=== PATIENT | female | born 2005 | race Caucasian/White ===

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

== ENCOUNTER 2024-04-09 13:52 | Emergency (ER) | payer OTHER, SELFPAY ==
[2024-04-09 13:52] VITALS: BP 117/54; PULSE 88; RESP 20; TEMP 36.6; O2SAT 100
--- NOTE | 2024-04-09 13:59 | ED_ITS ---
HPI - General Adult General Chief complaint: Unspecified Stated complaint: upper lip burning sensation History of Present Illness HPI narrative: patient left AMA before being seen Related Data Allergies Allergy/AdvReac Type Severity Reaction Status Date / Time No Known Allergies Allergy Verified 06/16/22 17:51 [facility] Past Medical History Medical History Abdominal pain Depression GERD (gastroesophageal reflux disease) Ingrown nail of great toe of right foot Vasovagal syncope Surgical History Surgical History History of appendectomy Family History Family History Mother Abdominal pain Colon polyp Social History Social History Smoking status: Never smoker Alcohol intake: never Substance use type: marijuana Other substance usage details: occasional Course Vital Signs Vital signs: Vital Signs Temperature 36.6 C 04/09/24 13:52 Pulse Rate 88 04/09/24 13:52 Respiratory Rate 04/09/24 13:52 Blood Pressure 117/54 L 04/09/24 13:52 Pulse Oximetry 100 04/09/24 13:52 Oxygen Delivery Room Air 04/09/24 13:52 Temperature 36.6 C 04/09/24 13:52 Pulse Rate 04/09/24 13:52 Respiratory Rate 04/09/24 13:52 Blood Pressure 117/54 L 04/09/24 13:52 Pulse Oximetry 100 04/09/24 13:52 Oxygen Delivery Room Air 04/09/24 13:52 Medical Decision Making Vital Signs Vital Signs: Vital Signs Temperature 36.6 C 04/09/24 13:52 Pulse Rate 88 04/09/24 13:52 Respiratory Rate 04/09/24 13:52 Blood Pressure 117/54 L 04/09/24 13:52 Pulse Oximetry 04/09/24 13:52 Oxygen Delivery Room Air 04/09/24 13:52 Temperature 36.6 C 04/09/24 13:52 Pulse Rate 88 04/09/24 13:52 Respiratory Rate 04/09/24 13:52 Blood Pressure 117/54 L 04/09/24 13:52 Pulse Oximetry 04/09/24 13:52 Oxygen Delivery Room Air 04/09/24 13:52 Discharge Plan Discharge Clinical Impression: Burn of lip Qualifiers: Encounter type: initial encounter Burn degree: unspecified degree Qualified Code(s): T20.02XA - Burn of unspecified degree of lip(s), initial encounter Patient Disposition: Left Against Medical Advice Condition: Stable Instructions: Antibiotic Form Prescriptions: No Action amoxicillin 500 mg tablet 500 mg PO TID Qty: 30 0RF Follow-up/Referrals: Katie,BAO Mcclure [Primary Care Provider] - Time of Disposition: 14:54
== END 2024-04-09 14:50 | disposition left against medical advice (07) ==
PROVIDERS: Emergency Provider Internal Medicine Critical Care Medicine; PCP Physician Assistant
DX: T20.02XA Burn of unspecified degree of lip(s), initial encounter (principal); X58.XXXA Exposure to other specified factors, initial encounter
CPT/HCPCS: 99282

== ENCOUNTER 2024-12-25 18:38 | Emergency (ER) | payer SELFPAY ==
--- OUTSIDE RECORDS SUMMARY | 2024-12-25 18:40 | XMS_ITS | Clinical Summary ---
Author Organization [facility] Address [address] [place] [address] Care Team Providers Care Building Insulation Installer Name Role Phone Gregorio Wilson Primary Care Provider [phone] Allergies No known active allergies Medications No known medications Active Problems No known active problems Surgical History Surgery Date Site/Laterality Comments APPENDECTOMY 07/30/2019 - 07/29/2020 TONSILLECTOMY/ADENOIDECTOMY 07/30/2009 - 07/29/2010 BLEPHAROPTOSIS REPAIR 07/30/2012 - 07/29/2013 Social History Tobacco Use Types Packs/Day Years Used Date Smoking Tobacco: Never Smokeless Tobacco: Never AUDIT-C Answer Date Recorded Q1: How often do you have a drink containing alc ohol? Monthly or less 12/21/2022 Q2: How many drinks containi ng alcohol do you have on a typical day when you are drinking? 1 or 2 12/21/2022 Q3: How often do you have si x or more drinks on one occasion? 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 Gender Identity Not on file Sexual Orientation Not on file Obstetrics History Last Filed Vital Signs Vital Sign Reading Time Taken Comments Blood Pressure - - Pulse - - Temperature - - Respiratory Rate - - Oxygen Saturation - - Inhaled Oxygen Concentration - - Weight 56.7 kg (125 lb) 12/21/2022 1:48 PM CDT Height 157.5 cm (5' 2) 12/21/2022 1:48 PM CDT Body Mass Index 22.86 12/21/2022 1:48 PM CDT Plan of Treatment Health Maintenance Due Date Last Done Comments Depression Screening 2004 Hepatitis C Screening 2004 Regular Well Visit/Exam 18-64 2022 Influenza Vaccine (Season Ended) 2025 06/18/2019, 05/30/2018, 07/04/2017, Additional history exists DTaP/Tdap/Td Vaccine (6 - Td or Tdap) 12/21/2025 12/22/2015, 08/08/2005, 2004, Additional history exists Hepatitis B Screening Completed 05/11/2005 , 2004, 2004, Additional history exists Pneumococcal vaccine <65 Completed 005, 2004, 2004, Additional history exists HPV Vaccines Completed 07/12/2016, 02/27, 01/05/2016 Varicella Vaccines Completed 12/05/2018, 08/08/2005 Meningococcal Vaccine Completed 12/01/2021, 016 Meningococcal B Vaccine Completed 03/09/2022, 12/01 Insurance [facility] [place] [id number] [facility] Care Teams Building Insulation Installer Relationship Specialty Start Date End Date Gregorio Wilson PA [address] [place] [address] PCP - General Family Practice 11/03/22
--- OUTSIDE RECORDS SUMMARY | 2024-12-25 18:40 | XMS_ITS | Referral Summary ---
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 Gender Identity Not on file Sexual Orientation Not on file Last Filed Vital Signs Vital Sign Reading Time Taken Comments Blood Pressure - - Pulse - - Temperature - - Respiratory Rate - - Oxygen Saturation - - Inhaled Oxygen Concentration - - Weight 56.7 kg (125 lb) 12/21/2022 1:48 PM CDT Height 157.5 cm (5' 2) 12/21/2022 1:48 PM CDT Body Mass Index 22.86 12/21/2022 1:48 PM CDT Plan of Treatment Not on file [place] [employer] Care Teams Funeral Assistant Relationship Specialty Start Date End Date Gregorio Wilson PA [address] [place] [address] PCP - General Family Practice 11/03/22
--- OUTSIDE RECORDS SUMMARY | 2024-12-25 18:40 | XMS_ITS | Clinical Summary ---
Author Organization [facility] Address [address] [facility] [place] [address] Care Team Providers Care Supervisor Inspecting Name Role Phone Pippa Cheek MD Primary Care Provider [phone] Source Comments [facility],non-owned Affiliates and Associated Physician Practices is amultiple site organization consisting of ambulatory clinics and hospital sitesin [place], [place], [place] and [place]. This disclosure is being madepursuant to the Care Everywhere program and may not contain all information available regarding this patient. Last updated 18.[facility] Allergies No known active allergies Medications * Be aware that medications may not be up to date on this document. Alwaysverify current medications with the patient. ALBUTEROL IN Inhale 2 Puffs by mouth every 4 hours as needed. 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 Family History Medical History Relation Name Comments Amblyopia Sister Anesthesia Reaction Sister adverse reaction to Versed Cataract Sister Relation Name Status Comments Sister Social History Tobacco Use Types Packs/Day Years Used Date Smoking Tobacco: Passive Smo ke Exposure - Never Smoker Smokeless Tobacco: Never Alcohol Use Standard Drinks/Week Comments No 0 (1 standard drink = 0.6 oz pur e alcohol) Comments No Sex and Gender Information Value Date Recorded Sex Assigned at Not on file 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 Gender Identity Not on file Sexual Orientation Not on file Last Filed Vital Signs Vital Sign Reading Time Taken Comments Blood Pressure 97/58 05/13/2019 1:45 PM CDT Pulse 70 05/13/2019 1:45 PM CDT Temperature 36.6 C (97.8 F) 05/13/2019 12:50 PM CDT Respiratory Rate 16 05/13/2019 1:45 PM CDT Oxygen Saturation 95% 05/13/2019 1:45 PM CDT Inhaled Oxygen Concentration - - Weight 55.5 kg (122 lb 5.7 oz) 05/13/2019 10:22 AM CDT Height 159 cm (5' 2.6) 05/13/2019 10:22 AM CDT Body Mass Index 21.95 05/13/2019 10:22 AM CDT Plan of Treatment Health Maintenance Due Date Last Done Comments HIV SCREENING 2019 HPV VACCINE (1 - 3-dose series) 2019 CHLAMYDIA/GONORRHEA SCREENING 2020 MENINGOCOCCAL (Group B) VACC INE SHARED DECISION-MAKING (1 of 2 - Standard) 2020 HEPATITIS C SCREENING 05/02/2022 DTAP/TDAP/TD VACCINES (1 - Tdap) 2023 HEPATITIS B VACCINE (1 of 3 - 19+ 3-dose series) 2023 COVID-19 VACCINE (1 - 2023-2 5 season) 2024 DEPRESSION SCREENING 07/30/2024 INFLUENZA VACCINE (Season Ended) 2025 ZOSTER VACCINE (1 of 2) 2054 HIB VACCINE Aged Out No longer eligi ble based on patient's age to complete this topic MENINGOCOCCAL GROUPS A/C/Y/W VACCINE Aged Out No longer eligible b ased on patient's age to complete this topic PNEUMOCOCCAL VACCINE Aged Out No long er eligible based on patient's age to complete this topic Insurance [place] - [place] [employer] [place] [employer] [place] MEDICAID [facility] Care Teams Supervisor Inspecting Relationship Specialty Start Date End Date Pippa Cheek MD [address] [place] [id number] PCP - General Pediatrics 04/15/13
--- OUTSIDE RECORDS SUMMARY | 2024-12-25 18:40 | XMS_ITS | Clinical Summary ---
Author Organization [facility] Address [address], [address] [address] Phone Care Team Providers Care Reed Worker Name Role Phone Gregorio Wilson Primary Care Provider [phone] Robbie Mandel MD Unavailable Allergies No known active allergies Medications No known medications Active Problems No known active problems Family History Medical History Relation Name Comments No Known Problems Father Colon Polyps Half-Sister 1 No Known Problems Half-Sister 2 No Known Problems Maternal Grandfather Diabetes Maternal Grandmother No Known Problems Mother No Known Problems Paternal Grandfather No Known Problems Paternal Grandmother No Known Problems Sister Relation Name Status Comments Father Alive Half-Sister 1 Alive Half-Sister 2 Alive Maternal Grandfather Alive Maternal Grandmother Alive Mother Alive Paternal Grandfather Alive Paternal Grandmother Alive Sister Alive Social History Tobacco Use Types Packs/Day Years Used Date Smoking Tobacco: Never Smokeless Tobacco: Never Alcohol Use Standard Drinks/Week Comments Never 0 (1 standard drink = 0.6 oz pur e alcohol) Sexually Active Control Partners Comments Not Currently Male Comments No Sex and Gender Information Value Date Recorded Sex Assigned at Not on file 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 Gender Identity Not on file Sexual Orientation Not on file Last Filed Vital Signs Vital Sign Reading Time Taken Comments Blood Pressure 132/62 10/05/2021 1:32 PM CAT CRACKER OPERATOR Pulse 67 10/05/2021 1:32 PM CAT CRACKER OPERATOR Temperature 35.8 C (96.4 F) 10/05/2021 1:32 PM CAT CRACKER OPERATOR Respiratory Rate - - Oxygen Saturation 98% 10/05/2021 1:32 PM CAT CRACKER OPERATOR Inhaled Oxygen Concentration - - Weight 54.4 kg (120 lb) 10/05/2021 1:32 PM CAT CRACKER OPERATOR Height 157.5 cm (5' 2) 10/05/2021 1:32 PM CAT CRACKER OPERATOR Body Mass Index 21.95 10/05/2021 1:32 PM CAT CRACKER OPERATOR Plan of Treatment Health Maintenance Due Date Last Done Comments Hepatitis C Virus (HCV) Screening 2004 Meningococcal B Immunization (1 of 2 - Standard) 2020 Influenza Immunization (#1) 03/30/202405/31, 05/30/2018, 07/04/2017, Additional history exists SARS-COV-2 Immunization ( - 2023- season) 2024 Respiratory Syncytial Virus (RSV) Immunization (Adult) (1 - 1-dose 75+ series) 2079 Hepatitis B Immunization Completed 005, 2004, 2004, Additional history exists Pneumococcal Immunization Combined Aged Out 05/11/2005, 2004, 2004, Additional history exists No longer eligible based on patient's age to complete this topic DTaP/Tdap/Td Immunization Discontinued 2015, 08/08/2005, 2004, Additional history exists Meningococcal Immunization (ACWY) Aged Out 12/22/2015 No longer eligible based on patient's age to complete this topic TdaP Immunization Completed 12/22/2015 Human Papillomavirus (HPV) Immunization Completed 07/12/2016, 03/08/2016, 01/05/2016 Measles Mumps Rubella (MMR) Immunization Discontinued 12/05/2018, 05/11/2005 Polio (IPV) Immunization Discontinued 019, 2004, 2004, Additional history exists Varicella Immunization Discontinued 12/05/2018, 2005 Rotavirus Immunization Aged Out No lo nger eligible based on patient's age to complete this topic Insurance MEDICAID AETNA [facility] MEDICAID [employer] Care Teams Reed Worker Relationship Specialty Start Date End Date Gregorio Wilson PAC [address] [place] [address] PCP - General Physician Cylinder Die Machine Helper 10/05/21 Robbie Mandel MD [address] [address] Consulting Physician Colon and Rectal Surgery 10/05/21
--- OUTSIDE RECORDS SUMMARY | 2024-12-25 18:40 | XMS_ITS | Data Portability ---
Author Organization [facility] [place] Address [address] [place] [address] Care Team Providers Care Family Resource Management Professor Name Role Phone SAMIR WILSON Primary Care Provider Assessment No assessment recorded. Plan of Treatment Reminders Order Date Submit Date Provider Last Modified By Organization Details Last Modified Time Details Appointments None recorde d. Lab pregnan cy test, urine 2024 025 [facility] In-Office Order, Internal Use Only DO Not Attach Compendium DO Not Attach Compendium, Do Not Delete/merge, [id number] 09:27:15 urinaly sis, dipstic k 2024 025 deldredsuc [facility] In-Office Order, Internal Use Only DO Not Attach Compendium DO Not Attach Compendium, Do Not Delete/merge, [id number] 5 09:27:15 Referral None recorde d. Procedures None recorde d. Surgeries None recorde d. Imaging None recorde d. Medication Orders medroxy progest erone 150 mg/mL intramu scular suspens ion [facility]24 [email or web address] [address] [place], [address], 5 09:27:15 Depo-Pr overa 150 mg/mL intramu scular suspens ion 2024 025 [email or web address] [facility], [address] [place], [address], 5 15:03:33 medroxy progest erone 150 mg/mL intramu scular suspens ion 2023 024 [email or web address] [facility], [address] [place], [address], 14:55:36 medroxy progest erone 150 mg/mL intramu scular suspens ion 2023 024 [email or web address] [facility], [address] [place], [address], 5 14:55:36 Patient TargetsNo targets recorded. Patient Instructions Encounter Date Encounter Id Patient Instructions Last Modified By Organization Details Last Modified Time 08/27/2024 [id number] A healthy lifestyle: care instructions [email or web address] Not available 08/27/2024 15:02:01 Quitting Tobacco: Care Instructions [email or web address] Not available 08/27/2024 15:02:01 Reason for Referral None Reported. Results Created Date Observation Date Name Description Value Unit Range Abnormal Flag Note LastModifiedBy Organization Detail LastModifiedTime 09/22/1909/22/2024 urina lysis , dipst ick Leukocytes Negati ve Not Available In-Office Order Internal Use Only DO Not Attach Compendium DO Not Attach Compendium, Do Not Delete/merge, [id number] 09/22/2024 16:50:48 09/22/19 25 09/22/2024 urina lysis , dipst ick Nitrite negati ve Not Available In-Office Order Internal Use Only DO Not Attach Compendium DO Not Attach Compendium, Do Not Delete/merge, [id number] 09/22/2024 16:50:48 09/22/19 25 09/22/2024 urina lysis , dipst ick Urobilinogen .2 Not Available In-Of fice Order Internal Use Only DO Not Attach Compendium DO Not Attach Compendium, Do Not Delete/merge, [id number] 09/22/2024 16:50:48 09/22/19 25 09/22/2024 urina lysis , dipst ick Protein 30 Not Available In-Office Order Internal Use Only DO Not Attach Compendium DO Not Attach Compendium, Do Not Delete/merge, 09/22/2024 16:50:48 09/22/19 25 09/22/2024 urina lysis , dipst ick pH 7.0 Not Available In-Office Order Internal Use Only DO Not Attach Compendium DO Not Attach Compendium, Do Not Delete/merge, 09/22/2024 16:50:48 09/22/19 25 09/22/2024 urina lysis , dipst ick Blood Large Not Available In-Office Order Internal Use Only DO Not Attach Compendium DO Not Attach Compendium, Do Not Delete/merge, 09/22/2024 16:50:48 09/22/19 25 09/22/2024 urina lysis , dipst ick Specific [place] 1.020 Not Available In-Off ice Order Internal Use Only DO Not Attach Compendium DO Not Attach Compendium, Do Not Delete/merge, 09/22/2024 16:50:48 09/22/19 25 09/22/2024 urina lysis , dipst ick Ketone Negati ve Not Available In-Office Order Internal Use Only DO Not Attach Compendium DO Not Attach Compendium, Do Not Delete/merge, 09/22/2024 16:50:48 09/22/19 25 09/22/2024 urina lysis , dipst ick Bilirubin Negati ve Not Available In-Office Order Internal Use Only DO Not Attach Compendium DO Not Attach Compendium, Do Not Delete/merge, 09/22/2024 16:50:48 09/22/19 25 09/22/2024 urina lysis , dipst ick Glucose Negati ve Not Available In-Office Order Internal Use Only DO Not Attach Compendium DO Not Attach Compendium, Do Not Delete/merge, 09/22/2024 16:50:48 09/22/19 25 09/22/2024 urina lysis , dipst ick Appearance Cloudy Not Available In-Offi ce Order Internal Use Only DO Not Attach Compendium DO Not Attach Compendium, Do Not Delete/merge, 09/22/2024 16:50:48 09/22/19 25 09/22/2024 urina lysis , dipst ick Color Yellow Not Available In-Office Order Internal Use Only DO Not Attach Compendium DO Not Attach Compendium, Do Not Delete/merge, 09/22/2024 16:50:48 09/22/19 25 09/22/2024 pregn no test, urine HCG negati ve Not Available In-Office Order Internal Use Only DO Not Attach Compendium DO Not Attach Compendium, Do Not Delete/merge, 09/22/2024 16:50:18 Result Notes None recorded. Problems No Known Problems Procedures Surgical History Date Name Laterality Status Provider Name and Address Organization Details Recorded Time 12/29/19 22 colonoscopy completed Nidhi Bermeo [facility] 03/09/2022 11:27:48 02/28/20 21 Appendectomy completed Nidhi Bermeo [facility] 03/09/2022 11:27:28 tonsilectomy/jagjit noids completed Teresita Burch [facility] 06/30/2021 14:12:12 Imaging Results None recorded. Procedure Notes None recorded. Medical Equipment None Reported. Allergies No known drug allergies Medications Name Sig Start Date Stop Date Status Note LastModified by Organization Details LastModified Time amoxicillin 500 mg capsule 08/01 completed Not Available Not Available Not Available buspirone 5 mg tablet Take 1 tablet twice a day by oral route for 30 days. 03/09 completed Not Available Not Available Not Available hydrocodone 5 mg-acetamin ophen 325 mg tablet 12/28 completed Not Available Not Available Not Available phenazopyri dine 200 mg tablet 06/30 completed Not Available Not Available Not Available ondansetron HCl 4 mg tablet Take 1 tablet twice a day by oral route as needed for 5 days. 07/28 completed Not Available Not Available Not Available fluoxetine 10 mg tablet 06/30 completed Not Available Not Available Not Available tramadol 50 mg tablet 12/28 completed Not Available Not Available Not Available ketorolac 10 mg tablet 08/01 completed Not Available Not Available Not Available amoxicillin 875 mg tablet Take 1 tablet every 12 hours by oral route for 10 days. 08/27 completed Not Available Not Available Not Available cephalexin 500 mg capsule Take 1 capsule 3 times a day by oral route for 10 days. 12/28 completed Not Available Not Available Not Available nitrofurant oin macrocrysta l 100 mg capsule 06/30 completed Not Available Not Available Not Available omeprazole 20 mg capsule,del ayed release 03/09 completed Not Available Not Available Not Available hydrocortis one 2.5 % topical cream 12/01 completed Not Available Not Available Not Available montelukast 10 mg tablet Take 1 tablet every day by oral route for 90 days. active Not Available Not Available No t Available hydroxyzine HCl 25 mg tablet Take 1 tablet 3 times a day by oral route as needed for 30 days. 01/31 completed Not Available Not Available Not Available ibuprofen 600 mg tablet 03/09 completed Not Available Not Available Not Available albuterol sulfate HFA 90 mcg/actuati on aerosol inhaler Inhale 2 puffs every 4 hours by inhalatio n route as needed. active Not Available Not Available No t Available colestipol 1 gram tablet 06/30 completed Not Available Not Available Not Available medroxyprog esterone 150 mg/mL intramuscul ar suspension Inject 1 mL every 3 months by intramusc ular route. 2024 active Not Available Not Available Not Avai lable metoclopram tawny 10 mg tablet 10/25 completed Not Available Not Available Not Available amoxicillin 875 mg-potassiu m clavulanate 125 mg tablet 06/30 completed Not Available Not Available Not Available azithromyci n 500 mg tablet 06/30 completed Not Available Not Available Not Available medroxyprog esterone 150 mg/mL intramuscul ar syringe 12/01 completed Not Available Not Available Not Available nitrofurant oin monohydrate /macrocryst als 100 mg capsule 12/01 completed Not Available Not Available Not Available Vitals Date Recorded Body height Body mass index (BMI) Body mass index (BMI) Percentile per age and sex Body weight Heart rate Systolic blood pressure Diastolic blood pressure Provider Name and Address Organization Details Last Updated DateTime 5 157.48 cm 27.3 kg/m2 87 % 59420.0 6 g 75 /min 111 mm[Hg] 67 mm[Hg] Connie Kaur [facility] 5 14:55:24 Date Recorded Body height Body mass index (BMI) Body mass index (BMI) Percentile per age and sex Body weight Systolic blood pressure Diastolic blood pressure Provider Name and Address Organization Details Last Updated DateTime 5 157.48 cm 26.5 kg/m2 85 % 83040.8 9 g 99 mm[Hg] 53 mm[Hg] Chloé alves [facility] 5 16:47:59 Date Recorded Body height Body mass index (BMI) Body mass index (BMI) Percentile per age and sex Body weight Respiratory rate Oxygen saturation Oxygen saturation in Arterial blood by Pulse oximetry Heart rate Systolic blood pressure Diastolic blood pressure Provider Name and Address Organization Details Last Updated DateTime 5 157.48 cm 24.1 kg/m2 72 % 47394.4 7 g 16 /min 99 % 99 % 98 /min 104 mm[Hg] 64 mm[Hg] Susana Maria [facility] 5 11:13:59 Date Recorded Body height Body mass index (BMI) Body mass index (BMI) Percentile per age and sex Body weight Systolic blood pressure Diastolic blood pressure Provider Name and Address Organization Details Last Updated DateTime 4 157.48 cm 24.5 kg/m2 76 % 95529.6 6 g 101 mm[Hg] 63 mm[Hg] Kia Bhakta [facility] 4 10:14:20 Date Recorded Body height Body mass index (BMI) Percentile per age and sex Body mass index (BMI) Body weight Systolic blood pressure Diastolic blood pressure Provider Name and Address Organization Details Last Updated DateTime 4 157.48 cm 83 % 26 kg/m2 58771.1 2 g 127 mm[Hg] 66 mm[Hg] JESUS Bragg [facility] 4 11:46:17 Social History Question Answer Notes LastModified by Organizat ion Details LastModified Time Tobacco Smoking Status Current Every Day Smoker Vapes daily, nicottine . Connie christianson [facility] 08/27/2024 14:57:26 Are You Blind Or Do You Have Difficulty Seeing? No Information not available 01/31/2023 What Is Your Level Of Caffeine Consumption? Occasional [email or web address] Information not available 12/01/2021 In The 14 Days Before Symptom Onset, Have You Had Close Contact With A Laboratory-confi rmed COVID-19 While That Case Was Ill? No Information not available 06/30/2021 In The 14 Days Before Symptom Onset, Have You Had Close Contact With A Person Who Is Under Investigation For COVID-19 While That Person Was Ill? No Information not available 06/30/2021 Have You Been To An Area Known To Be High Risk For COVID-19? No Information not available 06/30/2021 Are You Deaf Or Do You Have Serious Difficulty Hearing? No Information not available 01/31/2023 What Type Of Diet Are You Following? REGULAR Information not available 06/30/2021 What Is Your Home Situation? Relatives Sister Information not available 01/31/2023 What Was The Date Of Your Most Recent Tobacco Screening? 12/18/2024 Information not available 12/18/2024 What Is Your Relationship Status? Single Information not available 06/30/2021 Are You Sexually Active? Yes [email or web address] Information not available 12/28/2022 Do You Have Smoke And Carbon Monoxide Detectors In Your Home? Yes Information not available 06/30/2021 Are You Passively Exposed To Smoke? Yes Information not available 06/30/2021 Has Tobacco Cessation Counseling Been Provided? Yes Information not available 06/30/2021 On What Date Was Tobacco Cessation Counseling Provided? 12/18/2024 Information not available 12/18/2024 How Many Years Have You Used E-cigarettes Or Vape? 2 Information not available 06/30/2021 Sex: Female Functional Status Question Answer Note LastModified by Organizat ion Details LastModified Time Do you use any illicit or recreational drugs? No [email or web address] Information not available 07/28/2022 Do you or have you ever used any other forms of tobacco or nicotine? Yes Information not available 06/30/2021 What is your level of alcohol consumption? Occasional Information not available 01/31/2023 Do you or have you ever used smokeless tobacco? Never used smokeless tobacco Information not available 06/30/2021 Are you currently employed? Yes Information not available 06/30/2021 Are you able to care for yourself? 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 Current user of electronic cigarettes Information not available 06/30/2021 What is your exercise level? None Information not available 10/23/2023 Mental Status Question Answer Note LastModified by Organization D etails LastModified Time Do you feel stressed (tense, restless, nervous, or anxious, or unable to sleep at night)? [id number] [email or web address] Information not available 09/21/2022 Family History Relationship Description Onset Age of this Age Resolved Age Notes LastModified by Organization Details LastModified Time Father No current problems or disability [email or web address] Not available 06/30 14:09:54 Mother No current problems or disability [email or web address] Not available 06/30 14:09:54 Medical History Condition Response Coronary Artery Disease N Other N Atrial Fibrillation N High Blood Pressure N Thyroid Problems N Kidney or Bladder Problems N GI Problems N Depression N COPD N Blood Clots N Eating Disorder N Skin Problems N Anemia N Heart Attack (NC) N Anxiety Disorder N Diabetes N Muscle, Joint, or Bone Problems N Seizures/Epilepsy N Acid Reflux (GERD) N Cancer N Stroke N Asthma N Allergies N ADHD N Substance Abuse N High Cholesterol N Hepatitis N Liver Disease N Schizophrenia N Headaches N Heart Failure N Osteoporosis N Gynecological History Statement/Question Response Date of LMP 11/17/2024 On BCP's at Conception? N Menses Monthly No Date of Last Pap Smear Duration of Flow (days) 3 Age at Menarche 11 Current Control Method None LMP Approximate Obstetrics History GPAL:G 1 P 0 0 1 0 Type Value Induced 1 Total 1 Immunizations Vaccine Type Date Status Note Provider Nam e and Address Organization Details Recorded Time DTaP 5 completed Not Available [facility] 06/02/2023 23:50:56 DTaP 5 completed Not Available [facility] 23:50:56 DTaP 6 completed Not Available [facility] 06/02/2023 23:50:56 Hib (PRP-OMP) 4 completed Not Available [facility] 08/03/2023 14:01:56 Hib (PRP-OMP) 5 completed Not Available [facility] 08/03/2023 14:01:56 Hib (PRP-OMP) 5 completed Not Available [facility] 08/03/2023 14:01:56 Hep B, adolescent or pediatric 4 completed Not Available [facility] 06/02/2023 23:50:56 Hep B, adolescent or pediatric 4 completed Not Available [facility] 08/03/2023 14:01:56 Hep B, adolescent or pediatric 5 completed Not Available [facility] 08/03/2023 14:01:56 Hep B, adolescent or pediatric 5 completed Not Available [facility] 08/03/2023 14:01:56 HPV9 6 completed Not Available [facility] 06/02/2023 23:50:55 HPV9 6 completed Not Available [facility] 06/02/2023 23:50:55 HPV9 6 completed Not Available [facility] 06/02/2023 23:50:55 influenza, intradermal, quadrivalent, preservative free 0 completed Not Available [facility] 06/02/2023 23:50:55 influenza, intradermal, quadrivalent, preservative free 6 completed Not Available [facility] 08/03/2023 14:01:56 influenza, intradermal, quadrivalent, preservative free 7 completed Not Available [facility] 08/03/2023 14:01:56 influenza, intradermal, quadrivalent, preservative free 8 completed Not Available [facility] 08/03/2023 14:01:56 influenza, intradermal, quadrivalent, preservative free 9 completed Not Available [facility] 08/03/2023 14:01:56 MMR 5 completed Not Available [facility] 06/02/2023 23:50:55 MMR 9 completed Not Available [facility] 06/02/2023 23:50:55 meningococcal MCV4P 6 completed Not Available [facility] 06/02/2023 23:50:56 pneumococcal conjugate PCV 7 4 completed Not Available [facility] 06/02/2023 23:50:55 pneumococcal conjugate PCV 7 5 completed Not Available [facility] 06/02/2023 23:50:55 pneumococcal conjugate PCV 7 5 completed Not Available [facility] 06/02/2023 23:50:55 pneumococcal conjugate PCV 7 5 completed Not Available [facility] 06/02/2023 23:50:55 IPV 4 completed Not Available [facility] 06/02/2023 23:50:55 IPV 5 completed Not Available [facility] 06/02/2023 23:50:55 IPV 5 completed Not Available [facility] 06/02/2023 23:50:55 IPV 9 completed Not Available [facility] 06/02/2023 23:50:55 Tdap 6 completed Not Available [facility] 06/02/2023 23:50:56 varicella 6 completed Not Available [facility] 06/02/2023 23:50:56 varicella 9 completed Not Available [facility] 06/02/2023 23:50:56 meningococcal B, OMV 2 completed Not Available [facility] 06/02/2023 23:50:55 influenza, split (incl. purified surface antigen) 0 completed Not Available [facility] 08/03/2023 14:01:56 Influenza, split virus, quadrivalent, PF 6 completed Not Available [facility] 06/02/2023 23:50:56 DTaP 4 completed Not Available [facility] 06/02/2023 23:50:56 Hib-Hep B 5 completed Not Available [facility] 06/02/2023 23:50:55 Influenza, split virus, quadrivalent, PF 7 completed Not Available [facility] 06/02/2023 23:50:56 Hib-Hep B 5 completed Not Available [facility] 06/02/2023 23:50:55 Meningococcal MCV4O 2 completed Not Available [facility] 06/02/2023 23:50:56 meningococcal B, OMV 2 completed Not Available [facility] 06/02/2023 23:50:55 Influenza, split virus, quadrivalent, PF 8 completed Not Available [facility] 06/02/2023 23:50:56 Influenza, split virus, quadrivalent, PF 9 completed Not Available [facility] 06/02/2023 23:50:56 Hib-Hep B 4 completed Not Available [facility] 06/02/2023 23:50:55 Past Encounters Encounter ID Performer Location Encounter Start Date Encounter Closed Date Diagnosis/Indication Diagnosis SNOMED-CT Code Diagnosis ICD10 Code Diagnosis Note [id number] Samir Wilson PA-C [facility] [address] [place] [address] 06/30/2021 13:59:05 07/01/2021 07:28:54 Well child visit 354512674 Z00.736 [id number] Samir Wilson PA-C [facility] [address] [place] [address] 07/11/2021 09:58:31 07/13/2021 09:29:30 Dysuria 42333586 R30.9 [id number] Abdias Buckley MD [facility] [address] [place] [address] 09/19/2021 17:16:15 09/19/2021 18:04:11 Dysuria 95332223 R30.0 [id number] Abdias Buckley MD [facility] [address] [place] [address] 12/01/2021 16:34:04 12/01/2021 17:17:34 Active or passive immunization 278363642 Z23 Fatigue 52359138 R53.83 Generalize d anxiety disorder 21832734 F41.1 [id number] Samir Wilson PA-C [facility] [address] [place] [address] 03/09/2022 11:14:20 03/09/2022 12:02:32 Active or passive immunization 722776050 Z23 Bilateral ingrowing nail of toe of feet 0678903591 2384978 L60.0 [id number] Samir Wilson PA-C [facility] [address] [place] [address] 07/04/2022 16:03:11 07/04/2022 17:25:02 Acute upper respiratory infection 28511598 J00 [id number] Samir Wilson PA-C [facility] [address] [place] [address] 07/28/2022 10:19:02 07/28/2022 10:55:11 Fibrocystic change of left breast 0138848025 6522363 N60.12 [id number] Samir Wilson PA-C [facility] [address] [place] [address] 09/21/2022 12:11:51 09/21/2022 13:48:27 Fibrocystic changes of bilateral breasts 0821255291 4412375 N60.12 [id number] MERCEDEZ Cope [address] [facility] [place] [address] 10/05/2022 09:12:25 10/09/2022 10:09:22 Pain of breast 26417203 N64.4 Pt plans on going [facility] Sunday for . Pt to follow up 2 weeks after procedure to check status of breasts. Explained to patient that hormones can cause breast lumpiness and tenderness . [id number] MERCEDEZ Cope [address] [facility] [place] [address] 10/24/2022 16:40:59 10/25/2022 09:26:09 Mastodynia of bilateral breasts 6845030005 1665986 N64.4 Pt educated on fibrocysti c breast changes and how to decrease the appearance of lumps- by limiting caffeine and nicotine. Sbe exam discussed with pt. Ultrasound order given, pt verbalized understand ing. Will follow up pending results. [id number] [facility] [facility] [place] [address] 12/28/2022 12:13:53 01/01/2023 07:19:58 Contraception care management 070658769 Z30.9 1. All forms of control reviewed with patient including risks, benefits, pros and cons. 2. Patient verbalized understand ing of all forms and that abstinence is the only true form of control. 3. Condom use reviewed as well and prevention and transmissi on of STD's. 4. Pt to [facility] helper medication and call [place] office for injection appt. Smoker 98216363 F17.200 smoking cessation informatio n give. pt understand s the risk factors associated with smoking including heart disease, blood clots, stroke and increase risks for cancers. [id number] [facility] [place] [facility] [place] [address] 01/16/2023 16:57:21 01/23/2023 07:28:02 Surveillance of depot contraception done 5090031266 9104 Z30.42 1. All forms of control reviewed with patient including risks, benefits, pros and cons. 2. Patient verbalized understand ing of all forms and that abstinence is the only true form of control. 3. Condom use reviewed as well and prevention and transmissi on of STD's. 4. Depo injection given 5. Will return q 3 months for injections , sooner if needed. 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 All forms of control reviewed with patient including risks, benefits, pros and cons. 2. Patient verbalized understand ing of all forms and that abstinence is the only true form of control. 3. Condom use reviewed as well and prevention and transmissi on of STD's. 4. Serum hcg done today 5. If serum hcg is negative, pt will return in next 48 hours with injection to start series. Pt will then return q 3 months for injections , sooner if needed. [id number] MERCEDEZ Cope [address] [place] [address] 08/03/2023 14:00:14 08/06/2023 08:10:44 Initiation of depot contraception done 0881270023 23437 Z30.013 Smoker 18520881 F17.200 smoking cessation informatio n give. pt understand s the risk factors associated with smoking including heart disease, blood clots, stroke and increase risks for cancers. [id number] TANISHA Dow [address] [place] [address] 10/23/2023 10:42:50 10/26/2023 00:32:24 Seasonal allergic rhinitis [id number] J30.2 Exercise i nduced bronchospasm [id number] J45.990 Body mass index 20-24 - normal [id number] Z68.24 [id number] MERCEDEZ Cope [address] [place] [address] 10/26/2023 09:52:21 10/29/2023 08:09:15 Surveillance of depot contraception done [id number] Z30.42 1. All forms of control reviewed with patient including risks, benefits, pros and cons. 2. Patient verbalized understand ing of all forms and that abstinence is the only true form of control. 3. Condom use reviewed as well and prevention and transmissi on of STD's. 4. Depo injection given 5. Will return q 3 months for injections , sooner if needed. [id number] Abdias Buckley MD [facility] [address] [place] [place] [address] 01/10/2024 15:18:16 01/12/2024 09:29:31 Paronychia of finger of right hand [id number] L03.011 Body mass index 20-24 - normal [id number] Z68.24 [id number] MD Eddy Hilario [address] [place] [address] 01/15/2024 10:02:07 01/18/2024 07:44:53 Surveillance of depot contraception done [id number] 91 Z30.42 1. All forms of control reviewed with patient including risks, benefits, pros and cons. 2. Patient verbalized understand ing of all forms and that abstinence is the only true form of control. 3. Condom use reviewed as well and prevention and transmissi on of STD's. 4. Depo injection given 5. Will return q 3 months for injections , sooner if needed. [id number] MD Eddy Hilario [address] [place] [address] 04/09/2024 11:26:43 04/14/2024 08:43:37 Surveillance of depot contraception done [id number] 9104 Z30.42 1. All forms of control reviewed with patient including risks, benefits, pros and cons. 2. Patient verbalized understand ing of all forms and that abstinence is the only true form of control. 3. Condom use reviewed as well and prevention and transmissi on of STD's. 4. Serum hcg done today 5. If serum hcg is negative, pt will return in next 48 hours with injection to start series. Pt will then return q 3 months for injections , sooner if needed. [id number] MD Eddy Hilario [address] [place] [address] Dr Verduzco [address] [place] [address] 08/27/2024 14:48:59 08/28/2024 10:22:26 Contraception care management [id number] Z30.9 1. All forms of control reviewed with patient including risks, benefits, pros and cons. 2. Patient verbalized understand ing of all forms and that abstinence is the only true form of control. 3. Condom use reviewed as well and prevention and transmissi on of STD's. 4. pt on cycle, will return within 48 hours. Smoker [id number] F17.200 smoking cessation informatio n give. pt understand s the risk factors associated with smoking including heart disease, blood clots, stroke and increase risks for cancers. Overweight [id number] E66 .3 [id number] MD Eddy Hilario [address] [place] [address] Dr Verduzco [address] [place] [address] 09/22/2024 16:09:40 09/23/2024 12:35:58 Contraception care management [id number] Z30.9 1. All forms of control reviewed with patient including risks, benefits, pros and cons. 2. Patient verbalized understand ing of all forms and that abstinence is the only true form of control. 3. Condom use reviewed as well and prevention and transmissi on of STD's. 4. pt on cycle, will return within 48 hours. [id number] Abdias Buckley MD [facility] [address] [facility] [place] [address] 12/18/2024 11:03:21 12/19/2024 08:18:25 Viral gastroenteritis caused by Palmer-like agent [id number] A08.11 resolved Body mass index 20-24 - normal [id number] Z68.24 Health Concerns Section Related Observation LastModified by Organization Detai ls LastModified Time None Recorded Concern Status LastModified by Organization Details LastModified Time None Recorded Advance Directives Directive None Recorded Payers Encounter Date Sequence Insurance Name Policy Number Policy Gibson Covered Member ID Gibson Member ID Guarantor Name 01/15/2024 1 [employer] [place] 2020 (MEDICAID REPLACEMENT - HMO) Orlando Dequasie [id number] Kaila Dequasie 04/09/2024 1 [employer] [place]AC[place] - [place]MO) Orlando Dequasie [id number] Kaila Dequasie 08/27/2024 1 [employer] - [place]MO) Orlando Dequasie [id number] Kaila Dequasie 09/22/2024 1 [employer] - [place]) Orlando Dequasie [id number] Kaila Dequasie Notes Date Note Type Note Provider Name and Address Organization Details Recorded Time 01/15/2024 text/html Annual GYNReport ed bypatient.History:n o gynecologic complaints Menstrual cycle:Irregular cycle intervals Urinary symptoms:No hematuria; No incontinence Vulva:No genital lesion Vagina:Normal vaginal discharge Breast:No breast pain; No breast lump; No nipple discharge Current Contraception:Satis fied with current contraception; Intramuscular contraceptive injection Sexual complaints:No sexual complaints; No pain during intercourse; Normal libido Menopausal Symptoms:No menopausal symptoms; Normal vaginal lubrication Psychological symptoms:No depression; No anxiety; No PMDD Preventive measures:Encourage self breast examination; Encourage regular exercise; Encourage no tobacco use; Encourage regular mammograms starting age [age] yo fe here for jaime Paez CAFETERIA MANAGER-BC Attn: [address]ing[address] [place], [address], [facility] 01/15/2024 10:32:45 04/09/2024 text/html Annual GYNReport ed bypatient.History:n o gynecologic complaints Menstrual cycle:Irregular cycle intervals Urinary symptoms:No hematuria; No incontinence Vulva:No genital lesion Vagina:Normal vaginal discharge Breast:No breast pain; No breast lump; No nipple discharge Current Contraception:Satis fied with current contraception; Intramuscular contraceptive injection Sexual complaints:No sexual complaints; No pain during intercourse; Normal libido Menopausal Symptoms:No menopausal symptoms; Normal vaginal lubrication Psychological symptoms:No depression; No anxiety; No PMDD Preventive measures:Encourage self breast examination; Encourage regular exercise; Encourage no tobacco use; Encourage regular mammograms starting age [age] yo fe here for depo MERCEDEZ Cope Attn: Accounting[address] [facility], [place], [address], [place] [facility] 04/09/2024 12:13:46 08/27/2024 text/html Annual GYNReport ed bypatient.History:n o gynecologic complaints Menstrual cycle:Irregular cycle intervals Urinary symptoms:No hematuria; No incontinence Vulva:No genital lesion Vagina:Normal vaginal discharge Breast:No breast pain; No breast lump; No nipple discharge Current Contraception:Satis fied with current contraception; Intramuscular contraceptive injection Sexual complaints:No sexual complaints; No pain during intercourse; Normal libido Menopausal Symptoms:No menopausal symptoms; Normal vaginal lubrication Psychological symptoms:No depression; No anxiety; No PMDD Preventive measures:Encourage self breast examination; Encourage regular exercise; Encourage no tobacco use; Encourage regular mammograms starting age [age] yo fe here for control discussion, would like to restart depo- last depo 04/09/24 MERCEDEZ Cope Attn: Accounting[address] [facility], [place], [address], [facility] 08/27/2024 15:02:32 12/18/2024 text/html had diarrhea and stomach upset for 3 days..feeling better now... Samir [place] PA-C Attn: [address] [place], [address], [place] [facility] 12/18/2024 11:32:02 OBGyn Episode No OBEpisode recorded.
[2024-12-25 18:47] VITALS: BP 113/62; PULSE 80; RESP 16; TEMP 36.2; O2SAT 100
--- NOTE | 2024-12-25 19:05 | ED.GENADULT ---
HPI - General Adult General Chief complaint: Unspecified Stated complaint: hemorrhoids Time Seen by Provider: 12/25/24 19:05 Source: patient Mode of arrival: ambulatory Limitations: no limitations History of Present Illness HPI narrative: 19-year-old female history of hemorrhoids presented for complaint of rectal pain and hemorrhoids. Onset yesterday. pain is worse while at work where she does a lot of heavy lifting. patient has been using ice and malg-giu-zfcqaim hemorrhoid cream. denies bleeding. LBM today. Related Data Allergies Allergy/AdvReac Type Severity Reaction Status Date / Time No Known Allergies Allergy Verified 12/25/24 18:50 Review of Systems Review of Systems: per HPI. All systems reviewed & are unremarkable except as noted in HPI and below PMFSH Past Medical History Medical History Abdominal pain Depression GERD (gastroesophageal reflux disease) Ingrown nail of great toe of right foot Vasovagal syncope Surgical History Surgical History History of appendectomy Family History Family History Mother Abdominal pain Colon polyp Social History Social History Smoking status: Never smoker Alcohol intake: never Substance use type: marijuana Other substance usage details: occasional Comments At time of signature, I have reviewed and agree with nursing past medical, surgical, social and family history unless otherwise noted. Please see nursing chart for further information. There is no relevant family history pertinent to the presenting complaint Exam Narrative: GENERAL: Well-appearing ENT: Mucous membranes pink and moist. CHEST: No respiratory distress. Clear to auscultation. HEART: Regular rate and rhythm. No murmur appreciated. Normal peripheral pulses. ABDOMEN: Soft, nontender, nondistended, normal active bowel sounds. Rectal exam with external hemorrhoids noted x2, one tender c/w mildly thrombosed posteriorly, no discoloration noted, no bleeding. SKIN: Warm, dry, no rash. Capillary refill normal. Normal skin turgor. NEURO: No focal deficits. Alert and oriented x3. Gait steady. PSYCH: Normal affect. No signs of depression or anxiety. Course Course Emergency Course: Patient is aware of diagnosis, understands and agrees to treatment plan. Anticipatory guidance given. Patient agrees to follow-up as directed and is aware of reasons to seek care at the emergency department. Portions of this record may have been created with voice recognition software Level of Care: Express Care Visit Vital Signs Vital signs: Vital Signs Temperature 97.2 F L 12/25/24 18:47 Pulse Rate 80 12/25/24 18:47 Respiratory Rate 16 12/25/24 18:47 Blood Pressure 113/62 12/25/24 18:47 Pulse Oximetry 100 12/25/24 18:47 Oxygen Delivery Room Air 12/25/24 18:47 Temperature 97.2 F L 12/25/24 18:47 Pulse Rate 80 12/25/24 18:47 Respiratory Rate 16 12/25/24 18:47 Blood Pressure 113/62 12/25/24 18:47 Pulse Oximetry 100 12/25/24 18:47 Oxygen Delivery Room Air 12/25/24 18:47 Medical Decision Making MDM Narrative Medical decision making narrative: Discussed physical exam findings c/w external hemorrhoid. We discussed worsening hemorrhoids and the need for ER visit if thrombosed. Rx anusoll and lidocaine. Advised supportive measures and signs/symptoms to go to the ER. Pt is appropriate for outpt treatment and f/u. Differential Diagnosis Differential Diagnosis: hemorrhoid, rectal fissure, colitis, HSV Vital Signs Vital Signs: Vital Signs Temperature 97.2 F L 12/25/24 18:47 Pulse Rate 80 12/25/24 18:47 Respiratory Rate 16 12/25/24 18:47 Blood Pressure 113/62 12/25/24 18:47 Pulse Oximetry 100 12/25/24 18:47 Oxygen Delivery Room Air 12/25/24 18:47 Temperature 97.2 F L 12/25/24 18:47 Pulse Rate 80 12/25/24 18:47 Respiratory Rate 16 12/25/24 18:47 Blood Pressure 113/62 12/25/24 18:47 Pulse Oximetry 100 12/25/24 18:47 Oxygen Delivery Room Air 12/25/24 18:47 reviewed Discharge Plan Discharge Clinical Impression: Hemorrhoid Patient Disposition: Home Condition: Stable Instructions: Antibiotic Form, Hemorrhoids (ED), Thrombosed Hemorrhoid (ED) Additional Instructions: Warm baths/soaks with epson salts (sitz bath) three times daily and/or after bowel movement can provide comfort. No heavy lifting, pushing, pulling etc Take stool softeners to avoid straining with bowel movement. (Colace) Continue witch nitesh or Tucks pads Rest on your side or abdomen; avoid sitting directly in the center. Tylenol as needed Increase fiber and water in diet Use the Anusol suppository, you can get it over the counter Lidocaine cream as directed Follow up with your primary car provider in 3 days or sooner if you have worsening symptoms. Go to the ER if you have any worsening symptoms or concerns Patient Language: Eritrean Prescriptions: New hydrocortisone acetate [Anusol-HC] 25 mg suppository 25 mg RECTAL TID 4 Days Qty: 12 0RF lidocaine HCl 3 % cream 1 applic topical TID PRN (Reason: pain) Qty: 28.3 0RF Follow-up/Referrals: Katie,BAO Mcclure [Primary Care Provider] -
== END 2024-12-25 19:30 | disposition home or self-care (01) ==
PROVIDERS: Emergency Provider Nurse Practitioner Family; PCP Physician Assistant
DX: K64.9 Unspecified hemorrhoids (principal); F12.90 Cannabis use, unspecified, uncomplicated; K21.9 Gastro-esophageal reflux disease without esophagitis
CPT/HCPCS: 99213; G0463

== ENCOUNTER 2025-01-22 04:26 | Emergency (ER) | payer SELFPAY ==
[2025-01-22 04:27] VITALS: BP 123/96; PULSE 86; RESP 18; TEMP 36.9; O2SAT 99
--- NOTE | 2025-01-22 04:35 | ED_ITS ---
HPI - Nausea/Vomiting/Diarrhea General Chief complaint: Nausea/Vomiting/Diarrhea Stated complaint: n/v/d Time Seen by Provider: 01/22/25 04:35 Source: patient and family Mode of arrival: ambulatory Limitations: no limitations History of Present Illness HPI Narrative: patient is a 19-year-old female with nausea vomiting and diarrhea starting today. She is getting hot and cold flashes. 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 She started to have nausea vomiting and diarrhea after lunch. She had a hot pocket and chips. MD elicited complaint: nausea, vomiting and diarrhea Pertinent past history: other ( None) Onset (ago): hour(s) ( 3) Description of vomiting: food contents Description of diarrhea: watery Associated nausea: Yes Associated abdominal pain: Yes Location of pain: diffuse Radiation: diffuse Pain consistency: intermittent Severity: mild Pain scale (0-10): 1 Quality: cramping Exacerbating factors: none Relieving factors: none Context: other ( patient was at work in the heat and ate lunch and started to have nausea vomiting and diarrhea) Associated symptoms: nausea/vomiting Treatment prior to arrival: other ( none) Related Data Allergies Allergy/AdvReac Type Severity Reaction Status Date / Time No Known Allergies Allergy Verified 01/22/25 04:33 Review of Systems 2 Review of Systems: All systems reviewed & are unremarkable except as noted in HPI and below Constitutional: Constitutional: Reports no additional constitutional complaints Eyes: Eyes: Reports no additional eye complaints ENT: Reports system reviewed and no additional complaints, except as documented Cardiovascular: Cardiovascular: Reports no additional cardiovascular complaints Respiratory: Respiratory: Reports no additional respiratory complaints Gastrointestinal: Gastrointestinal: Reports no additional gastrointestinal complaints Genitourinary: Genitourinary: Reports no additional female genitourinary complaints Musculoskeletal: Musculoskeletal: Reports no additional musculoskeletal complaints Integumentary/Breasts: Skin/Breast: Reports system reviewed and no additional complaints, except as docu Neurologic: Reports system reviewed and no additional complaints, except as documented Psychiatric: Psychiatric: Reports no additional psychiatric complaints Endocrine: Endocrine: Reports no additional endocrine complaints Hematologic/Lymphatic: Hematologic/Lymphatic: Reports no additional hematologic/lymphatic complaints Allergic/Immunologic: Allergic/Immunologic: Reports no additional allergic/immunologic complaints PMFSH Past Medical History Medical History Vasovagal syncope Ingrown nail of great toe of right foot GERD (gastroesophageal reflux disease) Depression Abdominal pain Surgical History Surgical History History of appendectomy Family History Family History Mother Abdominal pain Colon polyp Social History Social History Smoking status: Never smoker Alcohol intake: never Substance use type: marijuana Other substance usage details: occasional Exam 2 Const: General: healthy appearing Nutritional Appearance: well nourished Orientation/consciousness: patient oriented x3 HENMT: Head: normal to inspection Ears: external ears normal F rogelio/Nose/Sinus: Normal external nose present Eyes: Conjunctivae: conjunctivae normal Cornea: corneas normal Pupils: E qual, round and reactive pupils present Neck: Neck: normal visual inspection Chest: Chest palpation & inspection: normal inspection of the chest Resp: Effort & Inspection: normal respiratory effort and not labored A uscultation: clear to auscultation bilaterally and no crackles Cardio: Rate: regular rate Rhythm: regular rhythm Heart sounds: no murmurs GI: Inspection: non-distended GI Palp: Yes Soft to palpation and No Tenderness to palpation present (GI) Auscultation: normal bowel sounds : General: Yes bladder normal to palpation Back/Spine/Pelvis: Back: no CVA tenderness Skin: General skin exam: normal color Rashes: no rashes Wounds: no wounds Neuro: General: patient oriented x3 Cranial nerves: Yes Nystagmus not present Speech: normal speech Extrem: General: normal to inspection Psych: Mental Status: mental status grossly normal Affect: normal affect Attitude: cooperative Course Vital Signs Vital signs: Vital Signs Temperature 36.9 C 01/22/25 04:27 Pulse Rate 86 01/22/25 04:27 Respiratory Rate 18 01/22/25 04:27 Blood Pressure 123/96 H 01/22/25 04:27 Pulse Oximetry 99 01/22/25 04:27 Oxygen Delivery Room Air 01/22/25 04:27 Temperature 36.9 C 01/22/25 04:27 Pulse Rate 86 01/22/25 04:27 Respiratory Rate 18 01/22/25 04:27 Blood Pressure 123/96 H 01/22/25 04:27 Pulse Oximetry 99 01/22/25 04:27 Oxygen Delivery Room Air 01/22/25 04:27 MDM - Nausea/Vomiting/Diarrhea MDM Narrative Medical decision making narrative: patient is a 19-year-old female with nausea vomiting and diarrhea and working in a hot environment this evening. We will start with fluids and labs at this time. Lab Data Attestation: I reviewed the patient's lab results. 01/22/25 04:50 01/22/25 04:50 Labs: Lab Results 01/22/25 Range/Units 04:50 WBC 9.3 (4.8-10.8) K/mm3 RBC 4.63 (4.20-5.40) M/mm3 Hgb 13.7 (12.0-15.0) g/dL Hct 41.1 (35.0-49.0) % MCV 88.8 (78.0-102.0) fL MCH 29.6 (27.0-31.0) pg MCHC 33.3 (32-36) g/dL RDW 12.8 (11.6-14.4) % Plt Count 265 (150-420) K/mm3 MPV 10.0 (9.2-11.8) fl Immature Gran % (Auto) 0.3 H (0.0-0.0) % Neut % (Auto) 78.6 H (50.0-70.0) % Lymph % (Auto) 13.5 L (18.0-42.0) % [place] % (Auto) 7.3 (2.0-11.0) % Eos % (Auto) 0.1 L (1.0-6.0) % Baso % (Auto) 0.2 (0.0-1.0) % Lymph # (Auto) 1.25 (1.10-4.50) K/mm3 [place] # (Auto) 0.68 (0.10-0.90) K/mm3 Eos # (Auto) 0.01 L (0.02-0.50) K/mm3 Baso # (Auto) 0.02 (0.00-0.10) K/mm3 Abs Immat Gran (auto) 0.03 H (0.00-0.00) K/mm3 Absolute Neuts (auto) 7.29 H (1.70-7.20) K/mm3 Absolute Nucleated RBC 0.00 (0.00-0.00) K/mm3 Nucleated RBC % 0.0 (0-0.0) % Sodium 140 (137-145) mmol/L Potassium 3.8 (3.4-5.0) mmol/L Chloride 108 H (98-107) mmol/L Carbon Dioxide 24 (22-30) mmol/L Anion Gap 8 (4-12) mmol/L BUN 10 (7-17) mg/dL Creatinine 0.87 (0.7-1.0) mg/dL Estim Creat Clear Calc 71 ml/min Estimated GFR > 60 (59 - ) Glucose 106 (65-110) mg/dL Calculated Osmolality 289 (285-295) mOsm/kg Lactic Acid 1.0 (0.4-2.0) mmol/L Calcium 9.3 (8.4-10.2) mg/dL Magnesium 2.0 (1.6-2.3) mg/dL Total Bilirubin 0.9 (0.2-1.3) mg/dL AST 33 (14-36) U/L ALT 23 (6-35) U/L Alkaline Phosphatase 60 (38-126) U/L Total Protein 7.4 (6.3-8.2) g/dL Albumin 4.9 (3.5-5.1) g/dL Lipase 45 (23-300) U/L Urine Color Dark orange (Yellow) Urine Appearance Clear (Clear) Urine pH 7.0 (5.0-8.0) Ur Specific [place] <= 1.005 L (1.010-1.020) Urine Protein Negative (Negative) Urine Glucose (UA) Negative (Negative) Urine Ketones 1+ H (Negative) Ur Blood (Man) Trace-intact H (Negative) Urine Nitrate Positive H (Negative) Urine Bilirubin Negative (Negative) Urine Urobilinogen 1.0 (0.2-1.0) mg/dL Leukocyte Esterase Rfl Negative (Negative) STEPHANIA/UL Urine RBC 0-2 (0-2) /hpf Urine WBC 0-3 (0-3) /hpf Ur Squamous Epith Cells Few (Few) /hpf Urine Bacteria 2+ H (None) /hpf Urine Test Negative Discharge Plan Discharge Clinical Impression: Gastroenteritis, Dehydration Patient Disposition: Home Condition: Stable Instructions: Dehydration (ED), Gastroenteritis (ED) Patient Language: Faroese Prescriptions: New ondansetron 4 mg tablet,disintegrating 4 mg PO Q8H PRN (Reason: nausea and vomiting) Qty: 20 0RF No Action hydrocortisone acetate [Anusol-HC] 25 mg suppository 25 mg RECTAL TID 4 Days Qty: 12 0RF lidocaine HCl 3 % cream 1 applic topical TID PRN (Reason: pain) Qty: 28.3 0RF Follow-up/Referrals: Katie,BAO Mcclure [Primary Care Provider] - Stand Alone Forms: Work/School Release IP Time of Disposition: 05:25
--- NOTE | 2025-01-22 04:47 | PC.NURSE ---
SENT TO BATHROOM FOR URINE SAMPLE
[2025-01-22] MEDS: SODIUM CHLORIDE 0.9% IV 1,000 ML 999 ML IV CONT (04:58)
[2025-01-22 04:59] LABS: Appearance Urine Clear (Clear); Basophils Absolute Auto 0.02 K/mm3 (0.00-0.10); Basophils Percent Auto 0.2 % (0.0-1.0); Bilirubin Urine Negative (Negative); Blood Urine Trace-intact (Negative); Eosinophils Absolute Auto 0.01 K/mm3 (0.02-0.50); Eosinophils Percent Auto 0.1 % (1.0-6.0); Glucose Urine UA Negative (Negative); Hematocrit 41.1 % (35.0-49.0); Hemoglobin 13.7 g/dL (12.0-15.0); Immature Granulocyte Absolute 0.03 K/mm3 (0.00-0.00); Immature Granulocyte Percent A 0.3 % (0.0-0.0); Ketones Urine 1+ (Negative); Leukocyte Esterase Ur Negative LEU/UL (Negative); Lymphocytes Absolute Auto 1.25 K/mm3 (1.10-4.50); Lymphocytes Percent Auto 13.5 % (18.0-42.0); Mean Corpuscular HGB Conc 33.3 g/dL (32-36); Mean Corpuscular Hemoglobin 29.6 pg (27.0-31.0); Mean Corpuscular Volume 88.8 fL (78.0-102.0); Monocytes Absolute Auto 0.68 K/mm3 (0.10-0.90); Monocytes Percent Auto 7.3 % (2.0-11.0); Neutrophils Absolute Auto 7.29 K/mm3 (1.70-7.20); Neutrophils Percent Auto 78.6 % (50.0-70.0); Nitrate Urine Positive (Negative); Platelet Count Result 265 K/mm3 (150-420); Protein Urine Negative (Negative); Red Blood Count 4.63 M/mm3 (4.20-5.40); Red Cell Distribution Width 12.8 % (11.6-14.4); Specific Grav Ur <= 1.005 (1.010-1.020); White Blood Count 9.3 K/mm3 (4.8-10.8)
[2025-01-22] MEDS: ONDANSETRON INJ 4 MG/2 ML VIAL IV PUSH (04:59)
--- NOTE | 2025-01-22 05:03 | PC.NURSE ---
PATIENT IS CURRENTLY RESTING ON STRETCHER. REPORTS NAUSEA. MEDICATED FOR NAUSEA. MOTHER AT HER SIDE. CALL LIGHT IN REACH
[2025-01-22 05:05] LABS: Add Urine Microscopic? YES; Color Urine Dark Orange (Yellow)
[2025-01-22 05:06] LABS: Bacteria Urine 2+ /hpf; Pregnancy On Board Control Positive; RBC Urine 0-2 /hpf (0-2); Squamous Epithelial Cell Urine Few /hpf (Few); Urine Pregnancy Test Negative; WBC Urine 0-3 /hpf (0-3)
[2025-01-22 05:10] LABS: Alanine Aminotransferase 23 U/L (6-35); Albumin Level 4.9 g/dL (3.5-5.1); Alkaline Phosphatase 60 U/L (38-126); Anion Gap 8 mmol/L (4-12); Aspartate Amino Transferase 33 U/L (14-36); Bilirubin,Total 0.9 mg/dL (0.2-1.3); Blood Urea Nitrogen 10 mg/dL (7-17); Calcium 9.3 mg/dL (8.4-10.2); Carbon Dioxide 24 mmol/L (22-30); Chloride 108 mmol/L (98-107); Estimated CRCL calculation 71 ml/min; Estimated Glomerular Filt Rate > 60; Glucose 106 mg/dL (65-110); Lipase 45 U/L (23-300); Osmolality Calculated 289 mOsm/kg (285-295); Potassium 3.8 mmol/L (3.4-5.0); Sodium 140 mmol/L (137-145); Total Protein 7.4 g/dL (6.3-8.2)
--- NOTE | 2025-01-22 05:31 | PC.NURSE ---
DR VALLE AT THE BEDSIDE
[2025-01-22 05:38] VITALS: BP 122/86; PULSE 78; RESP 18; O2SAT 100
--- NOTE | 2025-01-24 13:48 | PC.NURSE ---
final urine culture reviewed. no growth. no change in plan of care
== END 2025-01-22 05:38 | disposition home or self-care (01) ==
PROVIDERS: Emergency Provider Emergency Medicine; PCP Physician Assistant
DX: K52.9 Noninfective gastroenteritis and colitis, unspecified (principal); E86.0 Dehydration
CPT/HCPCS: 36415; 80053; 81001; 81025; 83605; 83690; 83735; 85025; 87086; 96361; 96374; 99284; J2405; J7030

== ENCOUNTER 2025-02-06 06:38 | Emergency (ER) | payer SELFPAY ==
--- OUTSIDE RECORDS SUMMARY | 2025-02-06 06:40 | XMS_ITS | Referral Summary ---
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
--- OUTSIDE RECORDS SUMMARY | 2025-02-06 06:40 | XMS_ITS | Clinical Summary ---
Author Organization [facility] Address [facility] [place] [address] Care Team Providers Care Cage/Vault Supervisor Name Role Phone Pippa Cheek MD Primary Care Provider [phone] Allergies No known active allergies Medications HYDROcodone-acet aminophen (NORCO) 5-325 MG tablet Take 1 tablet by mouth every 6 (six) hours as needed for Pain. 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 Gender Identity Not on file Sexual Orientation Not on file Last Filed Vital Signs Vital Sign Reading Time Taken Comments Blood Pressure 95/69 05/18/2023 12:00 AM CDT Pulse 77 05/17/2023 8:01 PM CDT Temperature 36.8 C (98.2 F) 05/17/2023 8:01 PM CDT Respiratory Rate 18 05/17/2023 8:01 PM CDT Oxygen Saturation 98% 05/18/2023 12: 15 AM CDT Inhaled Oxygen Concentration - - Weight 53.9 kg (118 lb 13.3 oz) 05/17/2023 8:01 PM CDT Height 157.5 cm (5' 2) 05/17/2023 8:01 PM CDT Body Mass Index 21.73 05/17/2023 8:01 PM CDT Plan of Treatment Health Maintenance Due Date Last Done Comments Annual Physical 2007 Hepatitis C 2022 COVID-19 Vaccine (2023- season) 2024 DTaP, Tdap and Td Vaccines (6 - Td or Tdap) 12/21/2025 12/22/2015, 08/08/2005, 2004, Additional history exists Hepatitis B Vaccines Completed 05/11/2005, 2004, 2004, Additional history exists Pneumococcal Vaccine: Pediatrics (0 to 5 Years) and At-Risk Patients (6 to 49 Years) Aged Out 05/11/2005, 2004, 2004, Additional history exists No longer eligible based on patient's age to complete this topic HPV Vaccines Completed 07/12/2016, 02/27, 01/05/2016 Meningococcal Vaccine Completed 12/01/2021, 016 Meningococcal B Vaccine Completed 03/09/2022, 12/01 RSV Immunizations Under 20 Months Aged Out No longer eligible based on patient's age to complete this topic [place] [address] FOR[facility]LY [facility] Care Teams Cage/Vault Supervisor Relationship Specialty Start Date End Date Pippa Cheek MD [address] [place] [id number] PCP - General PEDIATRICS 02/07/19
--- OUTSIDE RECORDS SUMMARY | 2025-02-06 06:40 | XMS_ITS | Clinical Summary ---
Author Organization [facility] Address [address] [place] [address] Care Team Providers Care Regulatory Submissions Specialist Name Role Phone Pippa Cheek MD Primary Care Provider [phone] [facility],non-owned Affiliates and Associated Physician Practices is amultiple site organization consisting of ambulatory clinics and hospital sitesin [place], [place], [place] and [place]. This disclosure is being madepursuant to the Care Everywhere program and may not contain all information available regarding this patient. Last updated 18.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
--- OUTSIDE RECORDS SUMMARY | 2025-02-06 06:40 | XMS_ITS | Clinical Summary ---
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
--- OUTSIDE RECORDS SUMMARY | 2025-02-06 06:40 | XMS_ITS | Clinical Summary ---
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 Temperature 35.8 C (96.4 F) 10/05/2021 1:32 PM 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 Respiratory Rate - - Oxygen Saturation 98% 10/05/2021 1:32 PM HEAD 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 Inhaled Oxygen Concentration - - Weight 54.4 kg (120 lb) 10/05/2021 1:32 PM HEAD 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 Height 157.5 cm (5' 2) 10/05/2021 1:32 PM HEAD 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 Body Mass Index 21.95 10/05/2021 1:32 PM HEAD 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 Plan of Treatment Health Maintenance Due Date Last Done Comments Hepatitis C Virus (HCV) Screening 2004 Meningococcal B Immunization (1 of 2 - Standard) 2020 SARS-COV-2 Immunization (1 - season) 2024 Influenza Immunization (#1) 03/30/202505/31, 05/30/2018, 07/04/2017, Additional history exists Respiratory Syncytial Virus (RSV) Immunization (Adult) (1 [...] to complete this topic Insurance MEDICAID AETNA [facility] MEDICAID [employer] Care Teams Filler Picker Relationship Specialty Start Date End Date Gregorio Wilson PAC [address] [place] [address] PCP - General Physician Labor Specialist 10/05/21 Robbie Mandel MD [address] [address] Consulting Physician Colon and Rectal Surgery 10/05/21
--- OUTSIDE RECORDS SUMMARY | 2025-02-06 06:40 | XMS_ITS | Data Portability ---
Author Organization [facility] Address [address] [facility] [place] [address] Care Team Providers Care Patient Assessment Coordinator Name Role Phone SAMIR WILSON Primary Care Provider Assessment No assessment recorded. Plan of Treatment Reminders Order Date Submit Date Provider Last Modified By Organization Details Last Modified Time Details Appointments ANY 15 2024 11:15A M Samir Wilson PA-C Not available Not available Not available Lab pregna ncy test, urine 2024 025 [email or web address] In-Office Order, Internal Use Only DO Not Attach Compendium DO Not Attach Compendium, Do Not Delete/merge, [id number] 09/23/2024 09:27:15 urinal ysis, dipsti ck 2024 025 [email or web address] In-Office Order, Internal Use Only DO Not Attach Compendium DO Not Attach Compendium, Do Not Delete/merge, [id number] 09/23/2024 09:27:15 Referral None record ed. Procedures None record ed. Surgeries None record ed. Imaging None record ed. Medication Orders hydroc ortiso ne 2.5 % topica l cream 2024 025 EHSAN [facility] [address], [address], 01/01/2025 12:44:54 medrox yproge steron e 150 mg/mL intram uscula r suspen eugenie 2024 025 [email or web address] [facility], [address], [place], [address], 02/05/2025 14:57:21 Depo-P rovera 150 mg/mL intram uscula r suspen eugenie 2024 025 [email or web address] [facility], [address], [place], [address], 02/05/2025 14:57:21 medrox yproge steron e 150 mg/mL intram uscula r suspen eugenie 2023 024 [email or web address] [facility], [address], [place], [address], 02/05/2025 14:57:21 Patient TargetsNo targets recorded. Patient Instructions Encounter Date Encounter Id Patient Instructions Last Modified By Organization Details Last Modified Time 08/27/2024 [id number] A healthy lifestyle: care instructions [email or web address] Not available 08/27/2024 15:02:01 Quitting Tobacco: Care Instructions deldredsmith Not available 08/27/2024 15:02:01 01/01/2025 [id number] hemorrhoids: care instructions nakul Not available 01/01/2025 12:44:42 Reason for Referral None Reported. Results Created [...] DO Not Attach Compendium, Do Not Delete/merge, [id number] 09/22/2024 16:50:48 09/22/1909/22/2024 urina lysis , dipst ick Urobilinogen .2 [...] 09/22/2024 urina lysis , dipst ick Specific Carlton 1.020 Not Available In-Off ice Order Internal [...] DO Not Attach Compendium, Do Not Delete/merge, [id number] 09/22/2024 16:50:48 09/22/19 25 09/22/2024 urina lysis , dipst ick Color Yellow Not Available In-Office Order Internal Use Only DO Not Attach Compendium DO Not Attach Compendium, Do Not Delete/merge, [id number] 09/22/2024 16:50:48 09/22/19 25 09/22/2024 pregn no test, urine HCG negati ve Not Available In-Office Order Internal Use Only DO Not Attach Compendium DO Not Attach Compendium, Do Not Delete/merge, [id number] 09/22/2024 16:50:18 Result Notes None recorded. Problems No Known Problems Procedures Surgical History Date Name Laterality Status Provider Name and Address Organization Details Recorded Time 12/29/19 22 colonoscopy completed Nidhi Bermeo [facility] 03/09/2022 11:27:48 02/28/20 21 Appendectomy completed Nidhi Bermeo [facility] 03/09/2022 11:27:28 tonsilectomy/jagjit noids completed Teresita Burch [facility] 06/30/2021 14:12:12 Imaging Results None recorded. Procedure [...] Available Not Available Not Available hydrocortis one acetate 25 mg rectal suppository UNWRAP AND INSERT 1 SUPPOSITO RY RECTALLY THREE TIMES A DAY FOR 4 DAYS 02/05 completed Not Available Not Available Not Available [...] Available hydrocortis one 2.5 % topical cream APPLY A THIN LAYER TO THE AFFECTED AREA(S) BY TOPICAL ROUTE 2 TIMES PER DAY 2024 active Not Available Not Available Not Avai lable montelukast 10 mg tablet Take 1 tablet [...] every 3 months by intramusc ular route. 02/05 completed Not Available Not Available Not Available metoclopram tawny 10 mg tablet 10/25 completed [...] mass index (BMI) Body mass index (BMI) [Percentile] Per age and sex Body weight Heart rate Systolic And Diastolic Provider Name and Address Organization Details Last Updated DateTime 5 157.48 cm 27.3 kg/m2 87 % 33244.0 6 g 75 /min 111/67 mm[Hg] Connie Funez Vincent [facility] 5 14:55:24 Date Recorded Body height Body mass index (BMI) Body mass index (BMI) [Percentile] Per age and sex Body weight Systolic And Diastolic Provider Name and Address Organization Details Last Updated DateTime 09/22/2024 157.48 cm 26.5 kg/m2 85 % 77366.8 9 g 99/53 mm[Hg] Chloé alves MA [facility] 5 16:47:59 Date Recorded Body height Body mass index (BMI) Body mass index (BMI) [Percentile] Per age and sex Body weight Respiratory rate Oxygen saturation Oxygen saturation in Arterial blood by Pulse oximetry Heart rate Systolic And Diastolic Provider Name and Address Organization Details Last Updated DateTime 5 157.48 cm 24.1 kg/m2 72 % 44590.4 7 g 16 /min 99 % 99 % 98 /min 104/64 mm[Hg] Susana Maria MA [facility] 5 11:13:59 Date Recorded Body height Body mass index (BMI) [Percentile] Per age and sex Body mass index (BMI) Body weight Oxygen saturation Oxygen saturation in Arterial blood by Pulse oximetry Heart rate Systolic And Diastolic Provider Name and Address Organization Details Last Updated DateTime 5 157.48 cm 74 % 24.5 kg/m2 63799.3 8 g 98 % 98 % 72 /min 104/64 mm[Hg] Teresita Burch MA [facility] 5 12:27:27 Date Recorded Body height Body mass index (BMI) Body mass index (BMI) [Percentile] Per age and sex Body weight Oxygen saturation Oxygen saturation in Arterial blood by Pulse oximetry Heart rate Respiratory rate Systolic And Diastolic Provider Name and Address Organization Details Last Updated DateTime 5 157.48 cm 24.3 kg/m2 73 % 83976.3 5 g 99 % 99 % 79 /min 16 /min 103/65 mm[Hg] Susana Maria MA [facility] 5 14:58:39 Date Recorded Body height Body mass index (BMI) [Percentile] Per age and sex Body mass index (BMI) Body weight Systolic And Diastolic Provider Name and Address Organization Details Last Updated DateTime 04/09/2024 157.48 cm 83 % 26 kg/m2 90917.1 2 g 127/66 mm[Hg] JESUS Bragg [facility] 4 11:46:17 Social History Question Answer Notes LastModified by Organizat ion Details LastModified Time Tobacco Smoking Status Current Every Day Smoker Vapes daily, nicottine . [facility] 08/27/2024 14:57:26 Are You Blind Or Do [...] Date Of Your Most Recent Tobacco Screening? 02/05/2025 Information not available 02/05/2025 What Is Your Relationship Status? Single Information not available 06/30/2021 Are You Sexually Active? Yes [email or web address] Information not available 12/28/2022 Do You Have Smoke And Carbon Monoxide Detectors In Your Home? Yes Information not available 06/30/2021 Are You Passively Exposed To Smoke? Yes Information not available 06/30/2021 Has Tobacco Cessation Counseling Been Provided? Yes Information not available 06/30/2021 On What Date Was Tobacco Cessation Counseling Provided? 02/05/2025 Information not available 02/05/2025 How Many Years Have You Used E-cigarettes [...] anxious, or unable to sleep at night)? [id number] [email or web address] Information not available 09/21/2022 Family History Relationship Description Onset Age of this Age Resolved Age Notes LastModified by Organization Details LastModified Time Father No current problems or disability [email or web address] Not available 06/30 14:09:54 Mother No current problems or disability [email or web address] Not available 06/30 14:09:54 Medical History Condition Response Coronary Artery Disease N Other N Atrial Fibrillation N High Blood Pressure N Depression N COPD N Blood Clots N Anxiety Disorder N Muscle, Joint, or Bone Problems N Acid Reflux (GERD) N Cancer N Stroke N ADHD N High Cholesterol N Liver Disease N Schizophrenia N Headaches N Thyroid Problems N Kidney or Bladder Problems N GI Problems N Eating Disorder N Skin Problems N Anemia N Heart Attack ([place]) N Diabetes N Seizures/Epilepsy N Asthma N Allergies N Substance Abuse N Hepatitis N Heart Failure N Osteoporosis N Gynecological History Statement/Question Response Date of LMP 01/28/2025 On BCP's at Conception? N Menses Monthly [...] 06/02/2023 23:50:56 DTaP 5 completed Not Available [facility] 06/02/2023 23:50:56 DTaP 6 completed Not Available [facility] 06/02/2023 23:50:56 Hib (PRP-OMP) 4 completed Not Available [facility] 08/03/2023 14:01:56 Hib (PRP-OMP) 5 completed Not Available [facility] 08/03/2023 14:01:56 Hib (PRP-OMP) 5 completed Not Available [facility] 08/03/2023 14:01:56 Hep B, adolescent or pediatric 4 completed Not Available [facility] 06/02/2023 23:50:56 Hep B, adolescent or pediatric 4 completed Not Available [facility] 08/03/2023 14:01:56 Hep B, adolescent or pediatric 5 completed Not Available [facility] 08/03/2023 14:01:56 Hep B, adolescent or pediatric 5 completed Not Available [facility] 08/03/2023 14:01:56 HPV9 6 completed Not Available [facility] 06/02/2023 23:50:55 HPV9 6 completed Not Available [facility] 06/02/2023 23:50:55 HPV9 6 completed Not Available [facility] 06/02/2023 23:50:55 influenza, intradermal, quadrivalent, preservative free 0 completed Not Available [facility] 06/02/2023 23:50:55 influenza, intradermal, quadrivalent, preservative free 6 completed Not Available [facility] 08/03/2023 14:01:56 influenza, intradermal, quadrivalent, preservative free 7 completed Not Available [facility] 08/03/2023 14:01:56 influenza, intradermal, quadrivalent, preservative free 8 completed Not Available [facility] 08/03/2023 14:01:56 influenza, intradermal, quadrivalent, preservative free 9 completed Not Available [facility] 08/03/2023 14:01:56 MMR 5 completed Not Available [facility] 06/02/2023 23:50:55 MMR 9 completed Not Available [facility] 06/02/2023 23:50:55 meningococcal MCV4P 6 completed Not Available [facility] 06/02/2023 23:50:56 pneumococcal conjugate PCV 7 4 completed Not Available [facility] 06/02/2023 23:50:55 pneumococcal conjugate PCV 7 5 completed Not Available [facility] 06/02/2023 23:50:55 pneumococcal conjugate PCV 7 5 completed Not Available [facility] 06/02/2023 23:50:55 pneumococcal conjugate PCV 7 5 completed Not Available [facility] 06/02/2023 23:50:55 IPV 4 completed Not Available [facility] 06/02/2023 23:50:55 IPV 5 completed Not Available [facility] 06/02/2023 23:50:55 IPV 5 completed Not Available [facility] 06/02/2023 23:50:55 IPV 9 completed Not Available [facility] 06/02/2023 23:50:55 Tdap 6 completed Not Available [facility] 06/02/2023 23:50:56 varicella 6 completed Not Available [facility] 06/02/2023 23:50:56 varicella 9 completed Not Available [facility] 06/02/2023 23:50:56 meningococcal B, OMV 2 completed Not Available [facility] 06/02/2023 23:50:55 influenza, split (incl. purified surface antigen) 0 completed Not Available [facility] 08/03/2023 14:01:56 Influenza, split virus, quadrivalent, PF 6 completed Not Available [facility] 06/02/2023 23:50:56 DTaP 4 completed Not Available [facility] 06/02/2023 23:50:56 Hib-Hep B 5 completed Not Available [facility] 06/02/2023 23:50:55 Influenza, split virus, quadrivalent, PF 7 completed Not Available [facility] 06/02/2023 23:50:56 Hib-Hep B 5 completed Not Available [facility] 06/02/2023 23:50:55 Meningococcal MCV4O 2 completed Not Available [facility] 06/02/2023 23:50:56 meningococcal B, OMV 2 completed Not Available [facility] 06/02/2023 23:50:55 Influenza, split virus, quadrivalent, PF 8 completed Not Available [facility] 06/02/2023 23:50:56 Influenza, split virus, quadrivalent, PF 9 completed Not Available [facility] 06/02/2023 23:50:56 Hib-Hep B 4 completed Not Available [facility] 06/02/2023 23:50:55 Past Encounters Encounter ID Performer Location Encounter Start Date Encounter Closed Date Diagnosis/Indication Diagnosis SNOMED-CT Code Diagnosis ICD10 Code Diagnosis Note [id number] [facility] [address] [place] [address] 06/30/2021 13:59:05 07/01/2021 07:28:54 Well child visit 685595506 Z00.709 [id number] Samir Wilson PA-C [facility] [address] [place] [address] 07/11/2021 09:58:31 07/13/2021 09:29:30 Dysuria 43841729 R30.9 [id number] Abdias Buckley MD [facility] [address] [place] [address] 09/19/2021 17:16:15 09/19/2021 18:04:11 Dysuria 95913963 R30.0 [id number] Abdias Buckley MD [facility] [address] [place] [address] 12/01/2021 16:34:04 12/01/2021 17:17:34 Active or passive immunization 081633752 Z23 Fatigue 66069494 R53.83 Generalize d anxiety disorder 39768504 F41.1 [id number] Samir Wilson PA-C [facility] [address] [place] [address] 03/09/2022 11:14:20 03/09/2022 12:02:32 Active or passive immunization 416832387 Z23 Bilateral ingrowing nail of toe of feet 8026452719 0217966 L60.0 [id number] Samir Wilson PA-C [facility] [address] [place] [address] 07/04/2022 16:03:11 07/04/2022 17:25:02 Acute upper respiratory infection 46796521 J00 [id number] Samir Wilson PA-C [facility] [address] [place] [address] 07/28/2022 10:19:02 07/28/2022 10:55:11 Fibrocystic change of left breast 1844457025 4054139 N60.12 [id number] Samir Wilson PA-C [facility] [address] [place] [address] 09/21/2022 12:11:51 09/21/2022 13:48:27 Fibrocystic changes of bilateral breasts 8467119508 7288899 N60.12 [id number] MERCEDEZ Cope [address] [place] [address] 10/05/2022 09:12:25 10/09/2022 10:09:22 Pain of breast 58253974 N64.4 Pt plans on going to [facility] Sunday for . Pt to follow up 2 weeks after procedure to check status of breasts. Explained to patient that hormones can cause breast lumpiness and tenderness . [id number] MERC[facility] Cope [address] [place] [address] 10/24/2022 16:40:59 10/25/2022 09:26:09 Mastodynia of bilateral breasts 4153868715 4213245 N64.4 Pt educated on fibrocysti c breast changes and how to decrease the appearance of lumps- by limiting caffeine and nicotine. Sbe exam discussed with pt. Ultrasound order given, pt verbalized understand ing. Will follow up pending results. [id number] MERC[facility] Cope [address] [place] [address] 12/28/2022 12:13:53 01/01/2023 07:19:58 Contraception care management 165883652 Z30.9 1. All forms of control reviewed with patient including risks, benefits, pros and cons. 2. Patient verbalized understand ing of all forms and that abstinence is the only true form of control. 3. Condom use reviewed as well and prevention and transmissi on of STD's. 4. Pt to product picker medication and call [place] [facility] for injection appt. Smoker 31155141 F17.200 smoking cessation informatio n give. pt understand s the risk factors associated with smoking including heart disease, blood clots, stroke and increase risks for cancers. [id number] MERC[facility] Cope [address] [place] [address] 01/16/2023 16:57:21 01/23/2023 07:28:02 Surveillance of depot contraception done 7903595923 9104 Z30.42 1. All forms of control reviewed with patient including risks, benefits, pros and cons. 2. Patient verbalized understand ing of all forms and that abstinence is the only true form of control. 3. Condom use reviewed as well and prevention and transmissi on of STD's. 4. Depo injection given 5. Will return q 3 months for injections , sooner if needed. 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 [id number] TANISHA Dow [address] [place] [address] 04/17/2023 14:01:20 04/18/2023 15:23:54 Surveillance of depot contraception done 5397447308 9104 Z30.42 pt rcvd shot and return dates of Jul.02- [id number] Samir Wilson PA-C [facility] [address] [place] [address] 05/07/2023 15:32:03 05/09/2023 15:12:18 Viral syndrome 051382492 B34.9 Acute maxi llary sinusitis 28249982 J01.01 Normal weight 52249900 Z 68.21 [id number] MERCEDEZ Cope Eddy [address] OB [address] [facility] [address] Verduzco [address] [place] [address] 08/01/2023 14:46:38 08/02/2023 09:20:42 Contraception care management 088560088 Z30.9 1. All forms of control reviewed [...] months for injections , sooner if needed. [id number] [facility] [address] OB [address] [facility] [place] [address] 08/03/2023 14:00:14 08/06/2023 08:10:44 Initiation of depot contraception done 0337681564 05549 Z30.013 Smoker 31900807 F17.200 smoking cessation informatio n give. pt understand s the risk factors associated with smoking including heart disease, blood clots, stroke and increase risks for cancers. [id number] TANISHA Dow [address] [place] [address] 10/23/2023 10:42:50 10/26/2023 00:32:24 Seasonal allergic rhinitis 705938753 J30.2 Exercise i nduced bronchospasm 241574457 J45.990 Body mass index 20-24 - normal 893095979 Z68.24 [id number] MERCEDEZ Cope [address] OB [address] [facility] [place] [address] 10/26/2023 09:52:21 10/29/2023 08:09:15 Surveillance of depot contraception done 6147922505 9104 Z30.42 1. All forms of control reviewed with patient including risks, benefits, pros and cons. 2. Patient verbalized understand ing of all forms and that abstinence is the only true form of control. 3. Condom use reviewed as well and prevention and transmissi on of STD's. 4. Depo injection given 5. Will return q 3 months for injections , sooner if needed. [id number] MD Liborio Das [address] [place] [address] 01/10/2024 15:18:16 01/12/2024 09:29:31 Paronychia of finger of right hand 8087381882 9002580 L03.011 Body mass index 20-24 - normal 443837743 Z68.24 [id number] MD Eddy Hilario [address] OB [address] [facility] [place] [address] 01/15/2024 10:02:07 01/18/2024 07:44:53 Surveillance of depot contraception done 3870547272 9104 Z30.42 1. All forms of control reviewed with patient including risks, benefits, pros and cons. 2. Patient verbalized understand ing of all forms and that abstinence is the only true form of control. 3. Condom use reviewed as well and prevention and transmissi on of STD's. 4. Depo injection given 5. Will return q 3 months for injections , sooner if needed. [id number] MD Eddy Hilario [address] [place] [address] [place] [address] 04/09/2024 11:26:43 04/14/2024 08:43:37 Surveillance of depot contraception done 9858928236 9104 Z30.42 1. All forms of control [...] months for injections , sooner if needed. [id number] MD Eddy Hilario [address] [place] [address] [place] [address] 08/27/2024 14:48:59 08/28/2024 10:22:26 Contraception care management 994797734 Z30.9 1. All forms of control reviewed with patient including risks, benefits, pros and cons. 2. Patient verbalized understand ing of all forms and that abstinence is the only true form of control. 3. Condom use reviewed as well and prevention and transmissi on of STD's. 4. pt on cycle, will return within 48 hours. Smoker 88859805 F17.200 smoking cessation informatio n give. pt understand s the risk factors associated with smoking including heart disease, blood clots, stroke and increase risks for cancers. Overweight 173543084 E66 .3 [id number] MD Eddy Hilario [address] [place] [address] [place] [address] 09/22/2024 16:09:40 09/23/2024 12:35:58 Contraception care management 468508506 Z30.9 1. All forms of control reviewed with patient including risks, benefits, pros and cons. 2. Patient verbalized understand ing of all forms and that abstinence is the only true form of control. 3. Condom use reviewed as well and prevention and transmissi on of STD's. 4. pt on cycle, will return within 48 hours. [id number] Abdias Buckley MD [facility] [address] [place] [address] 12/18/2024 11:03:21 12/19/2024 08:18:25 Viral gastroenteritis caused by Randolph-like agent 20307867 A08.11 resolved Body mass index 20-24 - normal 128224184 Z68.24 [id number] Abdias Buckley MD [facility] [address] [place] [address] 01/01/2025 12:19:30 01/02/2025 16:57:38 External hemorrhoids 99614246 K64.4 Health Concerns Section Related Observation LastModified by Organization Detai ls LastModified Time None Recorded Concern Status LastModified by Organization Details LastModified Time None Recorded Advance Directives Directive None Recorded Payers Insurance Date Sequence Insurance Name Policy Number Policy Gibson Covered Member ID Gibson Member ID Guarantor Name 02/05/2025 1 [place] [employer] [facility] [employer] Orlando Haas [id number] Kaila Dequasie 02/05/2025 1 [employer] [place] - DOS ON OR AFTER 2020 (MEDICAID REPLACEMENT - HMO) Orlando Haas [id number] Kaila Dequasie 02/05/2025 SLIDING FEE SCHEDULE - DISCOUNT Kaila Dequasie 02/05/2025 SLIDING FEE SCHEDULE - DISCOUNT Kaila Dequasie 12/16/2024 1 *SELF PAY* An valeri Dequasie 01/01/2025 SLIDING FEE SCHEDULE - DISCOUNT Kaila Dequasie Notes Date Note Type Note Provider Name and Address Organization Details Recorded Time 04/09/2024 text/html Annual GYNReport ed bypatient.History:n o [...] for depo MERCEDEZ Cope Attn: [address] [place], [address], [place] [facility] 04/09/2024 12:13:46 08/27/2024 text/html Annual GYNReport ed [...] depo 04/09/24 MERCEDEZ Cope Attn: [address] [place], [address], [place] [facility] 08/27/2024 15:02:32 12/18/2024 text/html had diarrhea and stomach upset for 3 days..feeling better now... Samir Wilson PA-C Attn: [address] [place], [address], [place] [facility] 12/18/2024 11:32:02 01/01/2025 text/html hemm are feeling better but not reducing in size..needs surg referral Samir [place] PA-C Attn: [address] [place], [address], [place] [facility] 01/01/2025 12:46:38 OBGyn Episode No OBEpisode recorded.
[2025-02-06 06:41] VITALS: BP 111/64; PULSE 77; RESP 18; TEMP 36.4; O2SAT 100
--- NOTE | 2025-02-06 06:46 | ED.SKABFB ---
HPI - Skin/Abscess/Foreign Bdy General Chief complaint: Skin/Abscess/Foreign Body Stated complaint: wound Time Seen by Provider: 02/06/25 06:46 Source: patient Mode of arrival: ambulatory Limitations: no limitations History of Present Illness HPI narrative: This is a 19-year-old female with no significant past medical history presents with a inflamed abscess tenderness around the nail bed of her 3rd left finger currently there is no drainage it is warm tender to touch patient states that she bites her nails. There is no fever chills. complaint: abscess/boil Onset (ago): day(s) Severity: mild Related Data Allergies Allergy/AdvReac Type Severity Reaction Status Date / Time No Known Allergies Allergy Verified 02/06/25 06:44 Review of Systems Review of Systems: All systems reviewed & are unremarkable except as noted in HPI and below PMFSH Past Medical History Medical History Vasovagal syncope Ingrown nail of great toe of right foot GERD (gastroesophageal reflux disease) Depression Abdominal pain Surgical History Surgical History History of appendectomy Family History Family History Mother Abdominal pain Colon polyp Social History Social History Smoking status: Never smoker Alcohol intake: never Substance use type: marijuana Other substance usage details: occasional Exam Const: General: healthy appearing and no acute distress Nutritional Appearance: well nourished Orientation/consciousness: patient oriented x3 Limitations: no limitations Resp: Effort & Inspection: normal respiratory effort Auscultation: clear to auscultation bilaterally Cardio: Rate: regular rate Rhythm: regular rhythm GI: GI Palp: Yes Soft to palpation Skin: Other: Skin lesion around the nail bed of her 3rd finger with no drainage there is redness and tenderness to touch. Course Course Emergency Course: Will send antibiotics to patient's local pharmacy including by mouth and an ointment for paronychia. Vital Signs Vital signs: Vital Signs Temperature 36.4 C L 02/06/25 06:41 Pulse Rate 77 02/06/25 06:41 Respiratory Rate 18 02/06/25 06:41 Blood Pressure 111/64 02/06/25 06:41 Pulse Oximetry 100 02/06/25 06:41 Oxygen Delivery Room Air 02/06/25 06:41 Temperature 36.4 C L 02/06/25 06:41 Pulse Rate 77 02/06/25 06:41 Respiratory Rate 18 02/06/25 06:41 Blood Pressure 111/64 02/06/25 06:41 Pulse Oximetry 100 02/06/25 06:41 Oxygen Delivery Room Air 02/06/25 06:41 Critical Care Time Critical Care Time Critical Care Time: No Discharge Plan Discharge Clinical Impression: Paronychia Patient Disposition: Home Condition: Stable Instructions: Antibiotic Form, Paronychia (ED) Additional Instructions: advised patient to take medication as prescribed and to follow with primary if symptoms persist or worsen. Patient Language: Hebrew Prescriptions: New amoxicillin-pot clavulanate [Augmentin] 500-125 mg tablet 1 tablet PO TID Qty: 30 0RF mupirocin [Centany] 2 % ointment 1 applic topical TID 7 Days Qty: 15 0RF No Action ondansetron 4 mg tablet,disintegrating 4 mg PO Q8H PRN (Reason: nausea and vomiting) Qty: 20 0RF cephalexin 500 mg capsule 500 mg PO BID 5 Days Qty: 10 0RF hydrocortisone acetate [Anusol-HC] 25 mg suppository 25 mg RECTAL TID 4 Days Qty: 12 0RF lidocaine HCl 3 % cream 1 applic topical TID PRN (Reason: pain) Qty: 28.3 0RF Follow-up/Referrals: Katie,BAO Mcclure [Primary Care Provider] - Time of Disposition: 06:50
== END 2025-02-06 06:59 | disposition home or self-care (01) ==
PROVIDERS: Emergency Provider Emergency Medicine; PCP Physician Assistant
DX: L03.012 Cellulitis of left finger (principal)
CPT/HCPCS: 99283

== ENCOUNTER 2025-05-12 02:27 | Emergency (ER) | payer SELFPAY ==
[2025-05-12 02:28] VITALS: BP 121/72; PULSE 73; RESP 20; TEMP 36.3; O2SAT 96
--- OUTSIDE RECORDS SUMMARY | 2025-05-12 02:30 | XMS_ITS | Clinical Summary ---
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 Gender Identity Not on file Sexual Orientation [...] Regular Well Visit/Exam 18-64 2022 Influenza Vaccine (#1) 2025 9, 05/30/2018, 07/04/2017, Additional history exists DTaP/Tdap/Td Vaccine (6 - Td or Tdap) 12/21/2025 12/22/2015, 08/08/2005, 2004, Additional history exists Hepatitis B Screening Completed 05/11/2005 , 2004, 2004, Additional history exists Pneumococcal vaccine <65 Completed 005, 2004, 2004, Additional history exists HPV Vaccines Completed 07/12/2016, 02/27, 01/05/2016 Varicella Vaccines Completed 12/05/2018, 08/08/2005 Meningococcal Vaccine Completed 12/01/2021, 016 Meningococcal B Vaccine Completed 03/09/2022, 12/01 Insurance [facility] [place] [phone] [facility] Care Teams Osteopathic Resident Relationship Specialty Start Date End Date Gregorio Wilson PA [address] [place] [address] PCP - General Family Practice 11/03/22
--- OUTSIDE RECORDS SUMMARY | 2025-05-12 02:30 | XMS_ITS | Clinical Summary ---
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 Gender Identity Not on file Sexual Orientation Not on file Last Filed Vital Signs Vital Sign Reading Time Taken Comments Blood Pressure 132/62 10/05/2021 1:32 PM SOFTWARE TEST ENGINEER Pulse 67 10/05/2021 1:32 PM SOFTWARE TEST ENGINEER Temperature 35.8 C (96.4 F) 10/05/2021 1:32 PM SOFTWARE TEST ENGINEER Respiratory Rate - - Oxygen Saturation 98% 10/05/2021 1:32 PM SOFTWARE TEST ENGINEER Inhaled Oxygen Concentration - - Weight 54.4 kg (120 lb) 10/05/2021 1:32 PM SOFTWARE TEST ENGINEER Height 157.5 cm (5' 2) 10/05/2021 1:32 PM SOFTWARE TEST ENGINEER Body Mass Index 21.95 10/05/2021 1:32 PM SOFTWARE TEST ENGINEER Plan of Treatment Health Maintenance Due Date Last Done Comments Hepatitis C Virus (HCV) Screening 2004 Meningococcal B Immunization (1 of 2 - Standard) 2020 Influenza Immunization (#1) 03/30/202505/31, 05/30/2018, 07/04/2017, Additional history exists SARS-COV-2 Immunization ( - season) 2025 Respiratory Syncytial Virus (RSV) Immunization (Adult) (1 [...] to complete this topic Insurance MEDICAID AETNA [facility] MEDICAID [employer] Care Teams Welder Production Line Combination Relationship Specialty Start Date End Date Gregorio Wilson PAC [address] [place] [address] PCP - General Physician Forging Die Sinker 10/05/21 Robbie Mandel MD [address] [address] Consulting Physician Colon and Rectal Surgery 10/05/21
--- OUTSIDE RECORDS SUMMARY | 2025-05-12 02:30 | XMS_ITS | Clinical Summary ---
Author Organization [facility] Address [facility] [place] [address] Care Team Providers Care Billing Clinician Name Role Phone Pippa Cheek MD Primary Care Provider [phone] Allergies No known active allergies Medications HYDROcodone-acet aminophen (NORCO) 5-325 MG tablet Take 1 tablet by mouth every 6 (six) hours as needed for Pain. 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 Gender Identity Not on file Sexual Orientation [...] Health Maintenance Due Date Last Done Comments Cervical Cancer Screening Pap Smear (Age 21 to 29) Every 3 Years 2004 Cervical Cancer Screening 2004 Annual Physical 2007 Hepatitis C 2022 COVID-19 Vaccine ( season) 2025 Influenza Adult (#1) 2025 06/18/2019, 05/30/2018, 07/04/2017, Additional history exists DTaP, Tdap and Td Vaccines (6 - [...] 016 Meningococcal B Vaccine Completed 03/09/2022, 12/01 Hepatitis A Vaccines Aged Out No long er eligible based on patient's age to complete this topic RSV Immunizations Under 20 Months Aged Out No longer eligible based on patient's age to complete this topic Insurance [employer]NA MEDICAID [facility] MEDICAID Care Teams Billing Clinician Relationship Specialty Start Date End Date Pippa Cheek MD [address] [place] [phone] PCP - General PEDIATRICS 02/07/19
--- OUTSIDE RECORDS SUMMARY | 2025-05-12 02:30 | XMS_ITS | Clinical Summary ---
Author Organization [facility] Address [address] [place] [address] Care Team Providers Care Drum Sander Offbearer Name Role Phone Pippa Cheek MD Primary Care Provider [phone] Source Comments [facility],non-owned Affiliates and Associated Physician Practices is amultiple site organization consisting of ambulatory clinics and hospital sitesin [place], [place], [place] and [place]. This disclosure is being madepursuant to the Care Everywhere program and may not contain all information available regarding this patient. 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
[2025-05-12 02:39] LABS: Add Urine Microscopic? YES; Appearance Urine Clear (Clear); Glucose Urine UA Negative (Negative); Leukocyte Esterase Ur Negative LEU/UL (Negative); Nitrate Urine Negative (Negative); Specific Grav Ur 1.020 (1.010-1.020)
--- OUTSIDE RECORDS SUMMARY | 2025-05-12 02:42 | XMS_ITS | Data Portability ---
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 Plan of Treatment Reminders Order Date Submit Date Provider Last Modified By Organization Details Last Modified Time Details Appointments None recorde d. Lab pregnan cy test, urine 2024 025 [facility]Office Order, Internal Use Only DO Not Attach Compendium DO Not Attach Compendium, Do Not Delete/merge, [id number] 09:27:15 urinaly sis, dipstic k 2024 025 [email or web address] In-Office Order, Internal Use Only DO Not Attach Compendium DO Not Attach Compendium, Do Not Delete/merge, [id number] 09:27:15 Referral None recorde d. Procedures None recorde d. Surgeries None recorde d. Imaging None recorde d. Medication Orders hydroco rtisone 2.5 % topical cream 2024 025 E[facility], [address] [place], [address], 5 12:44:54 medroxy progest erone 150 mg/mL intramu scular suspens ion 2024 025 kspraggsma [facility], [address] [place], [address], 14:57:21 Depo-Pr overa 150 mg/mL intramu scular suspens ion 2024 025 [facility], [facility] [place], [address], 14:57:21 medroxy progest erone 150 mg/mL intramu scular suspens ion 2023 024 [facility], [facility] [place], [address], 14:57:21 Patient TargetsNo targets recorded. Patient Instructions Encounter Date Encounter Id Patient Instructions Last Modified By Organization Details Last Modified Time 08/27/2024 [id number] A healthy lifestyle: care instructions [email or web address] Not available 08/27/2024 15:02:01 Quitting Tobacco: Care Instructions deldredsmith Not available 08/27/2024 15:02:01 01/01/2025 [id number] hemorrhoids: care instructions [email or web address] Not available 01/01/2025 12:44:42 Reason for Referral None Reported. Results Created Date Observation Date Name Description Value Unit Range Abnormal Flag Note LastModifiedBy Organization Detail LastModifiedTime 09/22/1909/22/2024 urina lysis , dipst ick Leukocytes Negati ve Not Available In-Office Order Internal Use Only DO Not Attach Compendium DO Not Attach Compendium, Do Not Delete/merge, 09/22/2024 16:50:48 09/22/1909/22/2024 urina lysis , dipst ick Nitrite negati ve Not Available In-Office Order Internal Use Only DO Not Attach Compendium DO Not Attach Compendium, Do Not Delete/merge, 09/22/2024 16:50:48 09/22/1909/22/2024 urina lysis , dipst [...] 09/22/2024 urina lysis , dipst ick Specific Dudley 1.020 Not Available In-Off ice Order Internal [...] DO Not Attach Compendium, Do Not Delete/merge, [id number] 09/22/2024 16:50:48 09/22/1909/22/2024 urina lysis , dipst ick Color Yellow Not Available In-Office Order Internal Use Only DO Not Attach Compendium DO Not Attach Compendium, Do Not Delete/merge, [id number] 09/22/2024 16:50:48 09/22/1909/22/2024 pregn no test, urine HCG negati ve Not Available In-Office Order Internal Use Only DO Not Attach Compendium DO Not Attach Compendium, Do Not Delete/merge, [id number] 09/22/2024 16:50:18 Result Notes None recorded. Problems No Known Problems Procedures Surgical History Date Name Laterality Status Provider Name and Address Organization Details Recorded Time 12/29/19 22 colonoscopy completed Nidhi Bermeo [facility] 03/09/2022 11:27:48 02/28/20 21 Appendectomy completed Nidhi Bermeo MA [facility] 03/09/2022 11:27:28 tonsilectomy/jagjit noids completed Teresita Burch MA [facility] 06/30/2021 14:12:12 Imaging Results None recorded. [...] 5 157.48 cm 27.3 kg/m2 87 % 30183.0 6 g 75 /min 111/67 mm[Hg] Connie Funez Vincent [facility] 5 14:55:24 Date Recorded Body height Body mass index (BMI) Body mass index (BMI) [Percentile] Per age and sex Body weight Systolic And Diastolic Provider Name and Address Organization Details Last Updated DateTime 09/22/2024 157.48 cm 26.5 kg/m2 85 % 62299.8 9 g 99/53 mm[Hg] Chloé alves MA [facility] 5 16:47:59 Date Recorded Body height Body mass index (BMI) Body mass index (BMI) [Percentile] Per age and sex Body weight Respiratory rate Oxygen saturation Oxygen saturation in Arterial blood by Pulse oximetry Heart rate Systolic And Diastolic Provider Name and Address Organization Details Last Updated DateTime 5 157.48 cm 24.1 kg/m2 72 % 88216.4 7 g 16 /min 99 % 99 % 98 /min 104/64 mm[Hg] Susana Maria MA [facility] 5 11:13:59 Date Recorded Body height Body mass index (BMI) [Percentile] Per age and sex Body mass index (BMI) Body weight Oxygen saturation Oxygen saturation in Arterial blood by Pulse oximetry Heart rate Systolic And Diastolic Provider Name and Address Organization Details Last Updated DateTime 5 157.48 cm 74 % 24.5 kg/m2 15720.3 8 g 98 % 98 % 72 /min 104/64 mm[Hg] Teresita Burch MA [facility] 5 12:27:27 Date Recorded Body height Body mass index (BMI) Body mass index (BMI) [Percentile] Per age and sex Body weight Oxygen saturation Oxygen saturation in Arterial blood by Pulse oximetry Heart rate Respiratory rate Systolic And Diastolic Provider Name and Address Organization Details Last Updated DateTime 5 157.48 cm 24.3 kg/m2 73 % 16381.3 5 g 99 % 99 % 79 /min 16 /min 103/65 mm[Hg] Susana Maria MA [facility] 5 14:58:39 Date Recorded Body height Body mass index (BMI) [Percentile] Per age and sex Body mass index (BMI) Body weight Systolic And Diastolic Provider Name and Address Organization Details Last Updated DateTime 04/09/2024 157.48 cm 83 % 26 kg/m2 30585.1 2 g 127/66 mm[Hg] Shira Razamons, [facility] 4 11:46:17 Social History Question Answer Notes LastModified by Organizat ion Details LastModified Time Tobacco Smoking Status Current Every Day Smoker Vapes daily, nicottine . Connie christianson, [facility] 08/27/2024 14:57:26 Are You Blind Or [...] available 06/30/2021 Are You Sexually Active? Yes Information not available 12/28/2022 Do You Have [...] 06/30/2021 Are you able to care for yourself independently? Yes Information not available 01/31/2023 What is [...] anxious, or unable to sleep at night)? [id number] [email or web address] Information not available 09/21/2022 Family History Relationship Description Onset Age of this Age Resolved Age Notes LastModified by Organization Details LastModified Time Father No current problems or disability [email or web address] Not available 06/30 14:09:54 Mother No current problems or disability [email or web address] Not available 06/30 14:09:54 Medical History Condition Response Coronary Artery Disease N Depression N COPD N Blood Clots N Anxiety Disorder N Acid Reflux (GERD) N Stroke N Eating Disorder N Skin Problems N Asthma N Substance Abuse N Liver Disease N Schizophrenia N Thyroid Problems N GI Problems N Anemia N Heart Attack ([place]) N Diabetes N Heart Failure N Other N Atrial Fibrillation N High Blood Pressure N Muscle, Joint, or Bone Problems N Cancer N Headaches N Kidney or Bladder Problems N Allergies N Hepatitis N ADHD N High Cholesterol N Seizures/Epilepsy N Osteoporosis N Gynecological History Statement/Question Response [...] 08/03/2023 14:01:56 HPV9 6 completed Not Available [facility] 06/02/2023 23:50:55 HPV9 6 completed Not Available [facility] 06/02/2023 23:50:55 HPV9 6 completed Not Available [facility] 06/02/2023 23:50:55 influenza, intradermal, quadrivalent, preservative free 0 completed Not Available [facility] 06/02/2023 23:50:55 influenza, intradermal, quadrivalent, preservative free 6 completed Not Available [facility] 08/03/2023 14:01:56 influenza, intradermal, quadrivalent, preservative free 7 completed Not Available [facility] 08/03/2023 14:01:56 influenza, intradermal, quadrivalent, preservative free 8 completed Not Available [facility] 08/03/2023 14:01:56 influenza, intradermal, quadrivalent, preservative free 9 completed Not Available [facility] 08/03/2023 14:01:56 MMR 5 completed Not Available [facility] 06/02/2023 23:50:55 MMR 9 completed Not Available [facility] 06/02/2023 23:50:55 meningococcal MCV4P 6 completed Not Available [facility] 06/02/2023 23:50:56 pneumococcal conjugate PCV 7 4 completed Not Available [facility] 06/02/2023 23:50:55 pneumococcal conjugate PCV 7 5 completed Not Available [facility] 06/02/2023 23:50:55 pneumococcal conjugate PCV 7 5 completed Not Available [facility] 06/02/2023 23:50:55 pneumococcal conjugate PCV 7 5 completed Not Available [facility] 06/02/2023 23:50:55 IPV 4 completed Not Available [facility] 06/02/2023 23:50:55 IPV 5 completed Not Available [facility] 06/02/2023 23:50:55 IPV 5 completed Not Available [facility] 06/02/2023 23:50:55 IPV 9 completed Not Available [facility] 06/02/2023 23:50:55 Tdap 6 completed Not Available [facility] 06/02/2023 23:50:56 varicella 6 completed Not Available [facility] 06/02/2023 23:50:56 varicella 9 completed Not Available [facility] 06/02/2023 23:50:56 meningococcal B, OMV 2 completed Not Available [facility] 06/02/2023 23:50:55 influenza, split (incl. purified surface antigen) 0 completed Not Available [facility] 08/03/2023 14:01:56 Influenza, split virus, quadrivalent, PF 6 completed Not Available [facility] 06/02/2023 23:50:56 DTaP 4 completed Not Available [facility] 06/02/2023 23:50:56 Hib-Hep B 5 completed Not Available [facility] 06/02/2023 23:50:55 Influenza, split virus, quadrivalent, PF 7 completed Not Available [facility] 06/02/2023 23:50:56 Hib-Hep B 5 completed Not Available [facility] 06/02/2023 23:50:55 Meningococcal MCV4O 2 completed Not Available [facility] 06/02/2023 23:50:56 meningococcal B, OMV 2 completed Not Available [facility] 06/02/2023 23:50:55 Influenza, split virus, quadrivalent, PF 8 completed Not Available [facility] 06/02/2023 23:50:56 Influenza, split virus, quadrivalent, PF 9 completed Not Available [facility] 06/02/2023 23:50:56 Hib-Hep B 4 completed Not Available [facility] 06/02/2023 23:50:55 Past Encounters Encounter ID Performer Location Encounter Start Date Encounter Closed Date Diagnosis/Indication Diagnosis SNOMED-CT Code Diagnosis ICD10 Code Diagnosis IMO Codes Diagnosis Note [id number] Samir Wilson PA-C [facility] [address] [facility] [place] [address] 06/30/2021 13:59:05 07/01/2021 07:28:54 Well child visit 480089952 Z00.904 [id number] Samir Wilson PA-C [facility] [address] [place] [address] 07/11/2021 09:58:31 07/13/2021 09:29:30 Dysuria 62500896 R30.9 [id number] Abdias Buckley MD [facility] [address] [place] [address] 09/19/2021 17:16:15 09/19/2021 18:04:11 Dysuria 79731890 R30.0 [id number] Abdias Buckley MD [facility] [address] [place] [address] 12/01/2021 16:34:04 12/01/2021 17:17:34 Active or passive immunization 016792323 Z23 Fatigue 53181969 R53.83 Generalize d anxiety disorder 36629695 F41.1 [id number] Samir Wilson PA-C [facility] [address] [place] [address] 03/09/2022 11:14:20 03/09/2022 12:02:32 Active or passive immunization 315438154 Z23 Bilateral ingrowing nail of toe of feet 7159448169 6389477 L60.0 [id number] Samir Wilson PA-C [facility] [address] [place] [address] 07/04/2022 16:03:11 07/04/2022 17:25:02 Acute upper respiratory infection 36565741 J00 [id number] Samir Wilson PA-C [facility] [address] [place] [address] 07/28/2022 10:19:02 07/28/2022 10:55:11 Fibrocystic change of left breast 9786043133 3748870 N60.12 [id number] Samir Wilson PA-C [facility] [address] [place] [address] 09/21/2022 12:11:51 09/21/2022 13:48:27 Fibrocystic changes of bilateral breasts 7141610931 5061461 N60.12 [id number] MERCEDEZ Cope 14 OB [address] [facility] [place] [address] 10/05/2022 09:12:25 10/09/2022 10:09:22 Pain of breast 73876518 N64.4 Pt plans on going to [facility] Sunday for . Pt to follow up 2 weeks after procedure to check status of breasts. Explained to patient that hormones can cause breast lumpiness and tenderness . [id number] MERCEDEZ Cope [address] [place] [address] [place] [address] 10/24/2022 16:40:59 10/25/2022 09:26:09 Mastodynia of bilateral breasts 6357591689 5816772 N64.4 Pt educated on fibrocysti c breast changes and how to decrease the appearance of lumps- by limiting caffeine and nicotine. Sbe exam discussed with pt. Ultrasound order given, pt verbalized understand ing. Will follow up pending results. [id number] MERCEDEZ Cope [address] [place] [address] 12/28/2022 12:13:53 01/01/2023 07:19:58 Contraception care management 788375316 Z30.9 1. All forms of control reviewed with patient including risks, benefits, pros and cons. 2. Patient verbalized understand ing of all forms and that abstinence is the only true form of control. 3. Condom use reviewed as well and prevention and transmissi on of STD's. 4. Pt to picking tech medication and call [facility] for injection appt. Smoker 74379943 F17.200 smoking cessation informatio n give. pt understand s the risk factors associated with smoking including heart disease, blood clots, stroke and increase risks for cancers. [id number] MERCEDEZ Cope [address] [facility] [place] [address] 01/16/2023 16:57:21 01/23/2023 07:28:02 Surveillance of depot contraception done 4559653501 9104 Z30.42 1. All forms of control reviewed with patient including risks, benefits, pros and cons. 2. Patient verbalized understand ing of all forms and that abstinence is the only true form of control. 3. Condom use reviewed as well and prevention and transmissi on of STD's. 4. Depo injection given 5. Will return q 3 months for injections , sooner if needed. 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 [facility] [address] [facility] [place] [address] 08/01/2023 14:46:38 08/02/2023 09:20:42 Contraception care management 440197832 Z30.9 1. All forms of control reviewed [...] months for injections , sooner if needed. [id number] AMANDA Cope-BC [place] 14 OB [address] [facility] [place] [address] 08/03/2023 14:00:14 08/06/2023 08:10:44 Initiation of depot contraception done 3823205443 56407 Z30.013 Smoker 73784336 F17.200 smoking cessation informatio n give. pt understand s the risk factors associated with smoking including heart disease, blood clots, stroke and increase risks for cancers. [id number] Samir Wilson PA-C [facility] [address] [place] [address] 10/23/2023 10:42:50 10/26/2023 00:32:24 Seasonal allergic rhinitis 359806260 J30.2 Exercise i nduced bronchospasm 749182288 J45.990 Body mass index 20-24 - normal 825867101 Z68.24 [id number] [facility] [address] [facility] [place] [address] 10/26/2023 09:52:21 10/29/2023 08:09:15 Surveillance of depot contraception done 7094084497 9104 Z30.42 1. All forms of control reviewed with patient including risks, benefits, pros and cons. 2. Patient verbalized understand ing of all forms and that abstinence is the only true form of control. 3. Condom use reviewed as well and prevention and transmissi on of STD's. 4. Depo injection given 5. Will return q 3 months for injections , sooner if needed. [id number] Abdias Buckley MD [facility] [address] [place] [address] 01/10/2024 15:18:16 01/12/2024 09:29:31 Paronychia of finger of right hand 0959072755 0833331 L03.011 Body mass index 20-24 - normal 931800866 Z68.24 [id number] Siddharth Burch MD [place] [address] OB [address] [facility] [place] [address] 01/15/2024 10:02:07 01/18/2024 07:44:53 Surveillance of depot contraception done 5120336621 9104 Z30.42 1. All forms of control reviewed with patient including risks, benefits, pros and cons. 2. Patient verbalized understand ing of all forms and that abstinence is the only true form of control. 3. Condom use reviewed as well and prevention and transmissi on of STD's. 4. Depo injection given 5. Will return q 3 months for injections , sooner if needed. [id number] MD Eddy Hilario [address] [place] [address] 04/09/2024 11:26:43 04/14/2024 08:43:37 Surveillance of depot contraception done 2750299835 9104 Z30.42 1. All forms of control [...] months for injections , sooner if needed. [id number] MD Eddy Hilario [address] [place] [address] 08/27/2024 14:48:59 08/28/2024 10:22:26 Contraception care management 152551104 Z30.9 1. All forms of control reviewed with patient including risks, benefits, pros and cons. 2. Patient verbalized understand ing of all forms and that abstinence is the only true form of control. 3. Condom use reviewed as well and prevention and transmissi on of STD's. 4. pt on cycle, will return within 48 hours. Smoker 76195013 F17.200 smoking cessation informatio n give. pt understand s the risk factors associated with smoking including heart disease, blood clots, stroke and increase risks for cancers. Overweight 036503085 E66 .3 [id number] MD Eddy Hilario 14 OB [address] [facility] [place] [address] 09/22/2024 16:09:40 09/23/2024 12:35:58 Contraception care management 834908246 Z30.9 1. All forms of control reviewed with patient including risks, benefits, pros and cons. 2. Patient verbalized understand ing of all forms and that abstinence is the only true form of control. 3. Condom use reviewed as well and prevention and transmissi on of STD's. 4. pt on cycle, will return within 48 hours. [id number] Abdias Buckley MD [facility] [address] [place] [address] 12/18/2024 11:03:21 12/19/2024 08:18:25 Viral gastroenteritis caused by Hancock-like agent 91336871 A08.11 037069 resolved Body mass index 20-24 - normal 923095253 Z68.24 20984554 [id number] Abdias Buckley MD [facility] [address] [place] [address] 01/01/2025 12:19:30 01/02/2025 16:57:38 External hemorrhoids 27834427 K64.4 87362 Health Concerns Section Related Observation LastModified by Organization Detai ls LastModified Time None Recorded Concern Status LastModified by Organization Details LastModified Time None Recorded Advance Directives Directive None Recorded Payers Insurance Date Sequence Insurance Name Policy Number Policy Gibson Covered Member ID Gibson Member ID Guarantor Name 2025 1 [place] [employer] Orlando Haas [id number] Kaila Dequasie 2025 1 [employer] BET[employer] - DOS ON OR AFTER 2020 (MEDICAID REPLACEMENT - HMO) Orlando Haas [id number] Kaila Dequasie 02/05/2025 SLIDING FEE SCHEDULE - DISCOUNT Kaila Dequasie 02/05/2025 SLIDING FEE SCHEDULE - DISCOUNT Kaila Dequasie 12/16/2024 1 *SELF PAY* An valeri Dequasie 01/01/2025 SLIDING FEE SCHEDULE - DISCOUNT Kaila Dequasie Notes Date Note Type Note Provider Name and Address Organization Details Recorded Time 04/09/20 24 text/htm l Annual GYNReported by PatientHistoryFor history, patient reportsno gynecologic complaints.Genitourinary symptomsFor menstrual cycle, patient reportsirregular cycle intervals. For urinary symptoms, patient reportsno hematuriaandno incontinence. For vulva, patient reportsno genital lesion. For vagina, patient reportsnormal vaginal discharge.Breast symptomsFor breast, patient reportsno breast pain,no breast lump, andno nipple discharge.ContraceptionFor current contraception, patient reportssatisfied with current contraceptionandintramuscular contraceptive injection.Endocrine symptomsFor sexual complaints, patient reportsno sexual complaints,no pain during intercourse, andnormal libido. For menopausal symptoms, patient reportsno menopausal symptomsandnormal vaginal lubrication.Psychological symptomsFor psychological symptoms, patient reportsno depression,no anxiety, andno pmdd.Preventative measuresFor preventive measures, patient reportsencourage self breast examination,encourage regular exercise,encourage no tobacco use, andencourage regular mammograms starting age 40.ROS as noted in the HPI 18 yo fe here for depo MERCEDEZ Cope Attn: Accounting, [address] [place], [address], [facility] 04/09/2024 12:13:46 08/27/19 25 text/htm l Annual GYNReported by PatientHistoryFor history, patient reportsno gynecologic complaints.Genitourinary symptomsFor menstrual cycle, patient reportsirregular cycle intervals. For urinary symptoms, patient reportsno hematuriaandno incontinence. For vulva, patient reportsno genital lesion. For vagina, patient reportsnormal vaginal discharge.Breast symptomsFor breast, patient reportsno breast pain,no breast lump, andno nipple discharge.ContraceptionFor current contraception, patient reportssatisfied with current contraceptionandintramuscular contraceptive injection.Endocrine symptomsFor sexual complaints, patient reportsno sexual complaints,no pain during intercourse, andnormal libido. For menopausal symptoms, patient reportsno menopausal symptomsandnormal vaginal lubrication.Psychological symptomsFor psychological symptoms, patient reportsno depression,no anxiety, andno pmdd.Preventative measuresFor preventive measures, patient reportsencourage self breast examination,encourage regular exercise,encourage no tobacco use, andencourage regular mammograms starting age 40.ROS as noted in the HPI 19 yo fe here for control discussion, would like to restart depo- last depo 04/09/24 MERCEDEZ Cope Attn: Accounting, [address] [place], [address], [place] [facility] 08/27/2024 15:02:32 12/19/19 25 text/htm l ROS as noted in the HPI had diarrhea and stomach upset for 3 days..feeling better now... Samir Wilson PA-C Attn: Accounting, [address] [facility], [place], [address], [facility] 12/18/2024 11:32:02 01/02/20 25 text/htm l ROS as noted in the HPI hemm are feeling better but not reducing in size..needs surg referral Samir Wilson PA-C Attn: Accounting, [address] [facility], [place], [address], [facility] 01/01/2025 12:46:38 OBGyn Episode No OBEpisode recorded.
--- NOTE | 2025-05-12 02:52 | ED_ITS ---
HPI - Female Genitourinary General Chief complaint: Urogenital-Female Stated complaint: uti symptoms Source: patient Mode of arrival: ambulatory Limitations: no limitations History of Present Illness HPI Narrative: Patient is a 20-year-old female with recurrent burning on urination and urgency of urine over the past couple months. She has been treated for UTIs in the past. She is taking [id number] Pyridium daily and we discussed that is too much. She does not have concerns for STD at this time but was opened ideas of treatment. No particular vaginal complaints. MD elicited complaint: dysuria, UTI, pelvic pain (Pain with intercourse) and possible STD Pertinent past history: STI/STD and recurrent UTIs Onset (ago): month(s) (2-3) Location of symptoms: suprapubic Severity: mild Female Urogenital Radiation: Non-Radiating Severity scale (1-10): 2 Quality of pain: cramping Consistency: intermittent Vaginal discharge: none Vaginal bleeding: none Urinary symptoms: Dysuria and Urgency Exacerbating factors: none Relieving factors: none Associated symptoms: denies other symptoms Treatment prior to arrival: other (OTC Pyridium) Sexual activity: Yes Patient : No Related Data Allergies Allergy/AdvReac Type Severity Reaction Status Date / Time No Known Allergies Allergy Verified 05/12/25 02:36 Review of Systems Review of Systems: All systems reviewed & are unremarkable except as noted in HPI and below Constitutional: Constitutional: Reports no additional constitutional complaints Eyes: Eyes: Reports no additional eye complaints ENT: Reports system reviewed and no additional complaints, except as documented Cardiovascular: Cardiovascular: Reports no additional cardiovascular complaints Respiratory: Respiratory: Reports no additional respiratory complaints Gastrointestinal: Gastrointestinal: Reports no additional gastrointestinal complaints Genitourinary: Genitourinary: Reports no additional female genitourinary complaints Musculoskeletal: Musculoskeletal: Reports no additional musculoskeletal comp laints Integumentary/Breasts: Skin/Breast: Reports system reviewed and no additional complaints, except as docu Neurologic: Reports system reviewed and no additional complaints, except as documented Psychiatric: Psychiatric: Reports no additional psychiatric complaints Endocrine: Endocrine: Reports no additional endocrine complaints Hematologic/Lymphatic: Hematologic/Lymphatic: Reports no additional hematologic/lymphatic complaints Allergic/Immunologic: Allergic/Immunologic: Reports no additional allergic/immunologic complaints PMFSH Past Medical History Medical History Vasovagal syncope Ingrown nail of great toe of right foot GERD (gastroesophageal reflux disease) Depression Abdominal pain Surgical History Surgical History History of appendectomy Family History Family History Mother Abdominal pain Colon polyp Social History Social History Smoking status: Never smoker Alcohol intake: never Substance use type: marijuana Other substance usage details: occasional Exam Const: General: healthy appearing Nutritional Appearance: well nourished Orientation/consciousness: patient oriented x3 HENMT: Head: normal to inspection Ears: external ears normal Face/Nose/Sinus: Normal external nose present Eyes: Conjunctivae: conjunctivae normal Pupils: Equal, round and reactive pupils present EOM: EOMs intact bilaterally Neck: Neck: normal visual inspection Chest: Chest palpation & inspection: normal inspection of the chest Resp: Effort & Inspection: normal respiratory effort and not labored Auscultation: clear to auscultation bilaterally and no crackles Cardio: Rate: regular rate Rhythm: regular rhythm Heart sounds: no murmurs GI: Inspection: non-distended GI Palp: Yes Soft to palpation and No Tenderness to palpation present (GI) Auscultation: normal bowel sounds : General: No bladder normal to palpation (Mild suprapubic tenderness to palpation) Back/Spine/Pelvis: Back: no CVA tenderness Skin: General skin exam: normal color Rashes: no rashes Wounds: no wounds Neuro: General: patient oriented x3, moves all extremities and no meningeal signs Cranial nerves: Yes Nystagmus not present Speech: normal speech Gait exam (Neuro): Normal gait present Extrem: General: normal to inspection, no clubbing, cyanosis or edema and no pedal edema Psych: Appearance: grossly normal Mental Status: mental status grossly normal Affect: normal affect Attitude: cooperative Course Vital Signs Vital signs: Vital Signs Temperature 36.3 C L 05/12/25 02:28 Pulse Rate 73 05/12/25 02:28 Respiratory Rate 20 05/12/25 02:28 Blood Pressure 121/72 05/12/25 02:28 Pulse Oximetry 96 05/12/25 02:28 Oxygen Delivery Room Air 05/12/25 02:28 Temperature 36.3 C L 05/12/25 02:28 Pulse Rate 73 05/12/25 02:28 Respiratory Rate 20 05/12/25 02:28 Blood Pressure 121/72 05/12/25 02:28 Pulse Oximetry 96 05/12/25 02:28 Oxygen Delivery Room Air 05/12/25 02:28 MDM - Female Genitourinary MDM Narrative Medical decision making narrative: Patient is a 20-year-old female with dysuria and urgency with prior STI and having recurrent symptoms. Will do urine studies. Further we will go ahead and empirically treat for gonorrhea and chlamydia and send lab work for these tests and other tests. Further put her on Flagyl and Bactrim for home treatment doses for chronic complaint. Lab Data Attestation: I reviewed the patient's lab results. Labs: Lab Results 05/12/25 Range/Units 02:34 Urine Color Yellow (Yellow) Urine Appearance Clear (Clear) Urine pH 6.5 (5.0-8.0) Ur Specific [place] 1.020 (1.010-1.020) Urine Protein Trace H (Negative) Urine Glucose (UA) Negative (Negative) Urine Ketones Trace H (Negative) Ur Blood (Man) Trace-intact H (Negative) Urine Nitrate Negative (Negative) Urine Bilirubin Negative (Negative) Urine Urobilinogen 1.0 (0.2-1.0) mg/dL Leukocyte Esterase Rfl Negative (Negative) STEPHANIA/UL Urine RBC 6-10 H (0-2) /hpf Urine WBC 0-3 (0-3) /hpf Ur Squamous Epith Cells Rare (Few) /hpf Urine Bacteria 4+ H (None) /hpf Discharge Plan Discharge Clinical Impression: Chronic interstitial cystitis Hematuria Qualifiers: Hematuria type: unspecified type Qualified Code(s): R31.9 - Hematuria, unspecified UTI (urinary tract infection) Qualifiers: Urinary tract infection type: site unspecified Hematuria presence: with hematuria Qualified Code(s): N39.0 - Urinary tract infection, site not specified ; R31.9 - Hematuria, unspecified Patient Disposition: Home Condition: Stable Instructions: Antibiotic Form, Hematuria (ED), Interstitial Cystitis (ED) Patient Language: [place]an Prescriptions: New metronidazole 500 mg tablet 500 mg PO BID 7 Days Qty: 14 0RF sulfamethoxazole-trimethoprim [Bactrim DS] 800-160 mg tablet 1 tablet PO BID 7 Days Qty: 14 0RF No Action ondansetron 4 mg tablet,disintegrating 4 mg PO Q8H PRN (Reason: nausea and vomiting) Qty: 20 0RF cephalexin 500 mg capsule 500 mg PO BID 5 Days Qty: 10 0RF amoxicillin-pot clavulanate [Augmentin] 500-125 mg tablet 1 tablet PO TID Qty: 30 0RF mupirocin [Centany] 2 % ointment 1 applic topical TID 7 Days Qty: 15 0RF hydrocortisone acetate [Anusol-HC] 25 mg suppository 25 mg RECTAL TID 4 Days Qty: 12 0RF lidocaine HCl 3 % cream 1 applic topical TID PRN (Reason: pain) Qty: 28.3 0RF Follow-up/Referrals: Katie,BAO Mcclure [Primary Care Provider]
[2025-05-12] MEDS: cefTRIAXone 500 MG, LIDOCAINE 1% LOCAL INJ 1 ML IM (03:28)
[2025-05-12] MEDS: AZITHROMYCIN 250 MG TABLET 1000 MG PO (03:28)
[2025-05-12 03:35] LABS: Pregnancy On Board Control Positive
[2025-05-13 08:30] LABS: Trichomonas Vag PCR NOT DETECTED (NOT DETECTE)
--- NOTE | 2025-05-14 12:21 | PC.NURSE ---
PRELIMINARY URINE CULTURE REPORT; GROWTH OBSERVED, FURTHER TESTING TO RULE OUT POSSIBLE PATHOGEN(s) IS IN PROGRESS.
--- NOTE | 2025-05-15 14:41 | PC.NURSE ---
FINAL URINE CULTURE REPORT; ENTEROCOCCUS FAECALIS, PATIENT DISCHARGED ON BACTRIM, CULTURE RESISTANT. PER DR. VALLE, CHANGE PATIENT TO CIPRO 500MG, 1 BID X10 DAYS. PATIENT NOTIFIED AND PRESCRIPTION CALLED TO [facility] PER PATIENT REQUEST.
== END 2025-05-12 03:52 | disposition home or self-care (01) ==
PROVIDERS: Emergency Provider Emergency Medicine; PCP Physician Assistant
DX: N30.21 Other chronic cystitis with hematuria (principal); Z11.3 Encounter for screening for infections with a predominantly sexual mode of transmission
CPT/HCPCS: 81001; 81025; 87086; 87186; 87491; 87591; 87661; 96372; 99284; A9270; J0696; J2003

== ENCOUNTER 2025-05-22 18:34 | Emergency (ER) | payer SELFPAY ==
[2025-05-22] VITALS (10 sets, daily range): BP systolic 94–120; BP diastolic 70–95; PULSE 58–94; RESP 16–24; TEMP 36.6–36.9; O2SAT 93–100
--- NOTE | ~2025-05-22 | CT_ITS ---
CT chest abdomen pelvis w con HISTORY: RULE OUT ESOPHAGEAL TEAR, COLITIS, DIVERTICULITIS. RUQ PAIN . COMPARISON: None. TECHNIQUE: Axial images of the chest, abdomen and pelvis were obtained without and with infusion of 100 Isovue 300. FINDINGS: CT CHEST: Extensive pneumomediastinum with gas extending into the anterior secondary to a tear of the esophagus just distal to the amita. The examination demonstrates no pulmonary nodules, infiltrates and/or effusions. No pathologically enlarged hilar or mediastinal lymphadenopathy is seen. Cardiac size and mediastinal configuration are normal in appearance. The pulmonary artery and thoracic aorta are normal in caliber and patency. Osseous structures are intact. The visualized organs of the upper abdomen are unremarkable. IMPRESSION: Mediastinal likely cysts secondary to a esophageal tear. No pathologic enhancement is noted. No pathologically enlarged mediastinal lymphadenopathy is noted. CT abdomen and pelvis with contrast: Periportal edema is noted. No intrahepatic mass or ductal dilatation is evident. The patient has had a cholecystectomy. The pancreas and spleen are normal in appearance. The adrenal glands are symmetric in size. The kidneys demonstrate symmetric uptake and excretion of contrast. No cystic mass is evident. There is no solid mass. There is no hydronephrosis. Evaluation of the stomach and bowel loops are limited due to lack of oral contrast. The bladder and rectum are normal. No free intraperitoneal fluid or air is evident. There is no significant retroperitoneal lymphadenopathy. The aorta, visceral vessels and renal arteries demonstrate normal caliber and patency. The lower thoracic and lumbar vertebrae are in normal alignment. IMPRESSION: No acute abnormality is noted in the abdomen and pelvis. All CT scans at this facility are performed using low dose modulation techniques as appropriate to perform exam including the following: automated exposure control; use of iterative reconstruction technique; adjustment of the mA and/or kV according to patient size (this includes techniques or standardized protocols for targeted exams where dose is matched to indication/reason for exam) Reviewed, dictated and finalized at location S. IMPRESSION: Mediastinal likely cysts secondary to a esophageal tear. No pathologic enhancement is noted. No pathologically enlarged mediastinal lymphadenopathy is noted. CT abdomen and pelvis with contrast: Periportal edema is noted. No intrahepatic mass or ductal dilatation is evident . The patient has had a cholecystectomy. The pancreas and spleen are normal in appearance. The adrenal glands are symmetric in size. The kidneys demonstrate symmetric uptake and excretion of contrast. No cystic m ass is evident. There is no solid mass. There is no hydronephrosis. Evaluation of the stomach and bowel loops are limited due to lack of oral contr ast. The bladder and rectum are normal. No free intraperitoneal fluid or air is evid ent. There is no significant retroperitoneal lymphadenopathy. The aorta, visceral vessels and renal arteries demonstrate normal caliber and p atency. The lower thoracic and lumbar vertebrae are in normal alignment. IMPRESSION: No acute abnormality is noted in the abdomen and pelvis. All CT scans at this facility are performed using low dose modulation techniqu es as appropriate to perform exam including the following: automated exposure c ontrol; use of iterative reconstruction technique; adjustment of the mA and/or kV according to patient size (this includes techniques or standardized protocol s for targeted exams where dose is matched to indication/reason for exam)
--- OUTSIDE RECORDS SUMMARY | 2025-05-22 18:36 | XMS_ITS | Clinical Summary ---
Author Organization [facility] Address [address] [place] [address] Care Team Providers Care Resilient Tile Installer Name Role Phone Gregorio Wilson Primary Care Provider [phone] Allergies No known active allergies Medications No [...] on file Legal Sex Female 1:27 PM [employer]IP[employer] Gender Identity Not on file Sexual Orientation [...] Meningococcal B Vaccine Completed 03/09/2022, 12/01 Insurance [facility] [place] [id number] [facility] Care Teams Resilient Tile Installer Relationship Specialty Start Date End Date Gregorio Wilson PA [address] [place] [address] PCP - General Family Practice 11/03/22
--- OUTSIDE RECORDS SUMMARY | 2025-05-22 18:36 | XMS_ITS | Data Portability ---
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 Plan of Treatment Reminders Order Date Submit Date Provider Last Modified By Organization Details Last Modified Time Details Appointments None recorde d. Lab pregnan cy test, [facility] Order, Internal Use Only DO Not Attach Compendium DO Not Attach Compendium, Do Not Delete/merge, [id number] 09:27:15 urinaly sis, dipstic k 2024 025 [email or web address] In-Office Order, Internal Use Only DO Not Attach Compendium DO Not Attach Compendium, Do Not Delete/merge, [id number] 09:27:15 Referral None recorde d. Procedures None recorde d. Surgeries None recorde d. Imaging None recorde d. Medication Orders hydroco rtisone 2.5 % topical cream 2024 025 [facility], [address] [place], [address], 5 12:44:54 medroxy progest erone 150 mg/mL intramu scular suspens ion 2024 025 kspraggsma [facility], [address] [place], [address], 14:57:21 Depo-Pr overa 150 mg/mL intramu scular suspens ion 2024 025 [facility], [facility] [place], [address], 14:57:21 medroxy progest erone 150 mg/mL intramu scular suspens ion 2023 024 [facility] [place], [address], 14:57:21 Patient TargetsNo targets recorded. Patient Instructions Encounter Date Encounter Id Patient Instructions Last Modified By Organization Details Last Modified Time 08/27/2024 [id number] A healthy lifestyle: care instructions [email or web address] Not available 08/27/2024 15:02:01 Quitting Tobacco: Care Instructions deldredsmith Not available 08/27/2024 15:02:01 01/01/2025 [id number] hemorrhoids: care instructions jnanney Not available 01/01/2025 [...] 09/22/2024 urina lysis , dipst ick Specific [place] 1.020 Not Available In-Off ice Order Internal [...] DO Not Attach Compendium, Do Not Delete/merge, [id number] 09/22/2024 16:50:48 09/22/1909/22/2024 urina lysis , dipst ick Color Yellow Not Available In-Office Order Internal Use Only DO Not Attach Compendium DO Not Attach Compendium, Do Not Delete/merge, [id number] 09/22/2024 16:50:48 09/22/1909/22/2024 pregn no test, urine HCG negati ve Not Available In-Office Order Internal Use Only DO Not Attach Compendium DO Not Attach Compendium, Do Not Delete/merge, [id number] 09/22/2024 16:50:18 Result Notes None recorded. Problems No Known Problems Procedures Surgical History Date Name Laterality Status Provider Name and Address Organization Details Recorded Time 12/29/19 22 colonoscopy completed Nidhi Bermeo MA [facility] 03/09/2022 11:27:48 02/28/20 21 Appendectomy completed Nidhi Bermeo MA [facility] 03/09/2022 11:27:28 tonsilectomy/jagjit noids completed Teresita Burch MA [facility] 06/30/2021 14:12:12 Imaging Results None recorded. Procedure [...] 5 157.48 cm 27.3 kg/m2 87 % 48177.0 6 g 75 /min 111/67 mm[Hg] Connie Funez Vincent [facility] 5 14:55:24 Date Recorded Body height Body mass index (BMI) Body mass index (BMI) [Percentile] Per age and sex Body weight Systolic And Diastolic Provider Name and Address Organization Details Last Updated DateTime 09/22/2024 157.48 cm 26.5 kg/m2 85 % 67778.8 9 g 99/53 mm[Hg] Chloé alves MA [facility] 5 16:47:59 Date Recorded Body height Body mass index (BMI) Body mass index (BMI) [Percentile] Per age and sex Body weight Respiratory rate Oxygen saturation Oxygen saturation in Arterial blood by Pulse oximetry Heart rate Systolic And Diastolic Provider Name and Address Organization Details Last Updated DateTime 5 157.48 cm 24.1 kg/m2 72 % 30201.4 7 g 16 /min 99 % 99 % 98 /min 104/64 mm[Hg] Susana Maria MA [facility] 5 11:13:59 Date Recorded Body height Body mass index (BMI) [Percentile] Per age and sex Body mass index (BMI) Body weight Oxygen saturation Oxygen saturation in Arterial blood by Pulse oximetry Heart rate Systolic And Diastolic Provider Name and Address Organization Details Last Updated DateTime 5 157.48 cm 74 % 24.5 kg/m2 42015.3 8 g 98 % 98 % 72 /min 104/64 mm[Hg] Teresita Burch MA [facility] 5 12:27:27 Date Recorded Body height Body mass index (BMI) Body mass index (BMI) [Percentile] Per age and sex Body weight Oxygen saturation Oxygen saturation in Arterial blood by Pulse oximetry Heart rate Respiratory rate Systolic And Diastolic Provider Name and Address Organization Details Last Updated DateTime 5 157.48 cm 24.3 kg/m2 73 % 13982.3 5 g 99 % 99 % 79 /min 16 /min 103/65 mm[Hg] Susana Maria MA [facility] 5 14:58:39 Date Recorded Body height Body mass index (BMI) [Percentile] Per age and sex Body mass index (BMI) Body weight Systolic And Diastolic Provider Name and Address Organization Details Last Updated DateTime 04/09/2024 157.48 cm 83 % 26 kg/m2 80116.1 2 g 127/66 mm[Hg] Shira Razamons, [facility] 4 11:46:17 Social History Question Answer Notes LastModified by Organizat ion Details LastModified Time Tobacco Smoking Status Current Every Day Smoker Vapes daily, nicottine . Connie christianson, [facility] 08/27/2024 14:57:26 Are You Blind Or Do [...] available 06/30/2021 Are You Sexually Active? Yes [email or web address] Information not available 12/28/2022 Do You Have [...] anxious, or unable to sleep at night)? [id number] [email or web address] Information not available 09/21/2022 Family History Relationship Description Onset Age of this Age Resolved Age Notes LastModified by Organization Details LastModified Time Father No current problems or disability [email or web address] Not available 06/30 14:09:54 Mother No current problems or disability [email or web address] Not available 06/30 14:09:54 Medical History Condition Response Coronary Artery Disease N Other N High Blood Pressure N Atrial Fibrillation N Thyroid Problems N Kidney or Bladder Problems N GI Problems N Depression N COPD N Blood Clots N Skin Problems N Eating Disorder N Anemia N Heart Attack ([place]) N Anxiety Disorder N Diabetes N Muscle, [...] 06/02/2023 23:50:55 HPV9 6 completed Not Available [facility] 06/02/2023 23:50:55 HPV9 6 completed Not Available [facility] 06/02/2023 23:50:55 influenza, intradermal, quadrivalent, preservative free 0 completed Not Available [facility] 06/02/2023 23:50:55 influenza, intradermal, quadrivalent, preservative free 6 completed Not Available [facility] 08/03/2023 14:01:56 influenza, intradermal, quadrivalent, preservative free 7 completed Not Available [facility] 08/03/2023 14:01:56 influenza, intradermal, quadrivalent, preservative free 8 completed Not Available [facility] 08/03/2023 14:01:56 influenza, intradermal, quadrivalent, preservative free 9 completed Not Available [facility] 08/03/2023 14:01:56 MMR 5 completed Not Available [facility] 06/02/2023 23:50:55 MMR 9 completed Not Available [facility] 06/02/2023 23:50:55 meningococcal MCV4P 6 completed Not Available [facility] 06/02/2023 23:50:56 pneumococcal conjugate PCV 7 4 completed Not Available [facility] 06/02/2023 23:50:55 pneumococcal conjugate PCV 7 5 completed Not Available [facility] 06/02/2023 23:50:55 pneumococcal conjugate PCV 7 5 completed Not Available [facility] 06/02/2023 23:50:55 pneumococcal conjugate PCV 7 5 completed Not Available [facility] 06/02/2023 23:50:55 IPV 4 completed Not Available [facility] 06/02/2023 23:50:55 IPV 5 completed Not Available [facility] 06/02/2023 23:50:55 IPV 5 completed Not Available [facility] 06/02/2023 23:50:55 IPV 9 completed Not Available [facility] 06/02/2023 23:50:55 Tdap 6 completed Not Available [facility] 06/02/2023 23:50:56 varicella 6 completed Not Available [facility] 06/02/2023 23:50:56 varicella 9 completed Not Available [facility] 06/02/2023 23:50:56 meningococcal B, OMV 2 completed Not Available [facility] 06/02/2023 23:50:55 influenza, split (incl. purified surface antigen) 0 completed Not Available [facility] 08/03/2023 14:01:56 Influenza, split virus, quadrivalent, PF 6 completed Not Available [facility] 06/02/2023 23:50:56 DTaP 4 completed Not Available [facility] 06/02/2023 23:50:56 Hib-Hep B 5 completed Not Available [facility] 06/02/2023 23:50:55 Influenza, split virus, quadrivalent, PF 7 completed Not Available [facility] 06/02/2023 23:50:56 Hib-Hep B 5 completed Not Available [facility] 06/02/2023 23:50:55 Meningococcal MCV4O 2 completed Not Available [facility] 06/02/2023 23:50:56 meningococcal B, OMV 2 completed Not Available [facility] 06/02/2023 23:50:55 Influenza, split virus, quadrivalent, PF 8 completed Not Available [facility] 06/02/2023 23:50:56 Influenza, split virus, quadrivalent, PF 9 completed Not Available [facility] 06/02/2023 23:50:56 Hib-Hep B 4 completed Not Available [facility] 06/02/2023 23:50:55 Past Encounters Encounter ID Performer Location Encounter Start Date Encounter Closed Date Diagnosis/Indication Diagnosis SNOMED-CT Code Diagnosis ICD10 Code Diagnosis IMO Codes Diagnosis Note [id number] Samir [place] PA-C [facility] [address] [facility] [place] [address] 06/30/2021 13:59:05 07/01/2021 07:28:54 Well child visit 323742493 Z00.153 [id number] Samir Wilson PA-C [facility] [address] [place] [address] 07/11/2021 09:58:31 07/13/2021 09:29:30 Dysuria 73651661 R30.9 [id number] Abdias Buckley MD [facility] [address] [place] [address] 09/19/2021 17:16:15 09/19/2021 18:04:11 Dysuria 84684133 R30.0 [id number] Abdias Buckley MD [facility] [address] [place] [address] 12/01/2021 16:34:04 12/01/2021 17:17:34 Active or passive immunization 259891697 Z23 Fatigue 13631049 R53.83 Generalize d anxiety disorder 66599569 F41.1 [id number] Samir Wilson PA-C [facility] [address] [place] [address] 03/09/2022 11:14:20 03/09/2022 12:02:32 Active or passive immunization 873631693 Z23 Bilateral ingrowing nail of toe of feet 0269805698 4687143 L60.0 [id number] Samir Wilson PA-C [facility] [address] [place] [address] 07/04/2022 16:03:11 07/04/2022 17:25:02 Acute upper respiratory infection 99907786 J00 [id number] Samir Wilson PA-C [facility] [address] [place] [address] 07/28/2022 10:19:02 07/28/2022 10:55:11 Fibrocystic change of left breast 9902002605 5305287 N60.12 [id number] Samir Wilson PA-C [facility] [address] [place] [address] 09/21/2022 12:11:51 09/21/2022 13:48:27 Fibrocystic changes of bilateral breasts 2349642852 1841128 N60.12 [id number] MERCEDEZ Cope [address] OB [address] [facility] [place] [address] 10/05/2022 09:12:25 10/09/2022 10:09:22 Pain of breast 49729323 N64.4 Pt plans on going to [facility] for . Pt to follow up 2 weeks after procedure to check status of breasts. Explained to patient that hormones can cause breast lumpiness and tenderness . [id number] MERCEDEZ Cope [address] [place] [address] [place] [address] 10/24/2022 16:40:59 10/25/2022 09:26:09 Mastodynia of bilateral breasts 7359354781 6494656 N64.4 Pt educated on fibrocysti c breast changes and how to decrease the appearance of lumps- by limiting caffeine and nicotine. Sbe exam discussed with pt. Ultrasound order given, pt verbalized understand ing. Will follow up pending results. [id number] MERCEDEZ Cope [address] [place] [address] 12/28/2022 12:13:53 01/01/2023 07:19:58 Contraception care management 555438964 Z30.9 1. All forms of control reviewed with patient including risks, benefits, pros and cons. 2. Patient verbalized understand ing of all forms and that abstinence is the only true form of control. 3. Condom use reviewed as well and prevention and transmissi on of STD's. 4. Pt to pickler helper medication and call [place] office for injection appt. Smoker 48726177 F17.200 smoking cessation informatio n give. pt understand s the risk factors associated with smoking including heart disease, blood clots, stroke and increase risks for cancers. [id number] MERCEDEZ Cope [address] [facility] [place] [address] 01/16/2023 16:57:21 01/23/2023 07:28:02 Surveillance of depot contraception done 3326308231 9104 Z30.42 1. All forms of control reviewed with patient including risks, benefits, pros and cons. 2. Patient verbalized understand ing of all forms and that abstinence is the only true form of control. 3. Condom use reviewed as well and prevention and transmissi on of STD's. 4. Depo injection given 5. Will return q 3 months for injections , sooner if needed. 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 [id number] Samir Wilson PA-C [facility] [address] [place] [address] 04/17/2023 14:01:20 04/18/2023 15:23:54 Surveillance of depot contraception done 9903693816 9104 Z30.42 pt rcvd shot and return dates of Jul.02- [id number] Samir Wilson PA-C [facility] [address] [place] [address] 05/07/2023 15:32:03 05/09/2023 15:12:18 Viral syndrome 970970909 B34.9 Acute maxi llary sinusitis 38350257 J01.01 Normal weight 05531517 Z 68.21 [id number] [facility] [address] [facility] [place] [address] 08/01/2023 14:46:38 08/02/2023 09:20:42 Contraception care management 889842240 Z30.9 1. All forms of control reviewed [...] months for injections , sooner if needed. [id number] AMANDA Cope-BC [place] 14 OB [address] [facility] [place] [address] 08/03/2023 14:00:14 08/06/2023 08:10:44 Initiation of depot contraception done 2024801522 93547 Z30.013 Smoker 19607500 F17.200 smoking cessation informatio n give. pt understand s the risk factors associated with smoking including heart disease, blood clots, stroke and increase risks for cancers. [id number] Samir [place] PA-C [facility] [address] [place] [address] 10/23/2023 10:42:50 10/26/2023 00:32:24 Seasonal allergic rhinitis 786918157 J30.2 Exercise i nduced bronchospasm 689966857 J45.990 Body mass index 20-24 - normal 231299077 Z68.24 [id number] [facility] OB [address] [facility] [place] [address] 10/26/2023 09:52:21 10/29/2023 08:09:15 Surveillance of depot contraception done 3750586187 9104 Z30.42 1. All forms of control reviewed with patient including risks, benefits, pros and cons. 2. Patient verbalized understand ing of all forms and that abstinence is the only true form of control. 3. Condom use reviewed as well and prevention and transmissi on of STD's. 4. Depo injection given 5. Will return q 3 months for injections , sooner if needed. [id number] Abdias Buckley MD [facility] [address] [place] [address] 01/10/2024 15:18:16 01/12/2024 09:29:31 Paronychia of finger of right hand 3575797170 6129952 L03.011 Body mass index 20-24 - normal 699939605 Z68.24 [id number] Siddharth Burch MD [facility] [address] OB [address] [facility] [place] [address] 01/15/2024 10:02:07 01/18/2024 07:44:53 Surveillance of depot contraception done 2200656329 9104 Z30.42 1. All forms of control reviewed with patient including risks, benefits, pros and cons. 2. Patient verbalized understand ing of all forms and that abstinence is the only true form of control. 3. Condom use reviewed as well and prevention and transmissi on of STD's. 4. Depo injection given 5. Will return q 3 months for injections , sooner if needed. [id number] MD Eddy Hilario [address] [place] [address] 04/09/2024 11:26:43 04/14/2024 08:43:37 Surveillance of depot contraception done 9326971163 9104 Z30.42 1. All forms of control [...] months for injections , sooner if needed. [id number] MD Eddy Hilario [address] [place] [address] 08/27/2024 14:48:59 08/28/2024 10:22:26 Contraception care management 406531979 Z30.9 1. All forms of control reviewed with patient including risks, benefits, pros and cons. 2. Patient verbalized understand ing of all forms and that abstinence is the only true form of control. 3. Condom use reviewed as well and prevention and transmissi on of STD's. 4. pt on cycle, will return within 48 hours. Smoker 46578042 F17.200 smoking cessation informatio n give. pt understand s the risk factors associated with smoking including heart disease, blood clots, stroke and increase risks for cancers. Overweight 629932800 E66 .3 [id number] MD Eddy Hilario 14 OB [address] [facility] [place] [address] 09/22/2024 16:09:40 09/23/2024 12:35:58 Contraception care management 565059984 Z30.9 1. All forms of control reviewed with patient including risks, benefits, pros and cons. 2. Patient verbalized understand ing of all forms and that abstinence is the only true form of control. 3. Condom use reviewed as well and prevention and transmissi on of STD's. 4. pt on cycle, will return within 48 hours. [id number] Abdias Buckley MD [facility] [address] [place] [address] 12/18/2024 11:03:21 12/19/2024 08:18:25 Viral gastroenteritis caused by [place]-like agent 10285744 A08.11 531730 resolved Body mass index 20-24 - normal 712658829 Z68.24 05784983 [id number] Abdias Buckley MD [facility] [address] [place] [address] 01/01/2025 12:19:30 01/02/2025 16:57:38 External hemorrhoids 74842498 K64.4 88229 Health Concerns Section Related Observation LastModified by Organization Detai ls LastModified Time None Recorded Concern Status LastModified by Organization Details LastModified Time None Recorded Advance Directives Directive None Recorded Payers Insurance Date Sequence Insurance Name Policy Number Policy Gibson Covered Member ID Gibson Member ID Guarantor Name 2025 1 [place] DEPARTMENT OF PUBLIC AID Orlando Haas [id number] Kaila Dequasie 2025 1 [employer] BET[place] - DOS ON OR AFTER 2020 (MEDICAID REPLACEMENT - HMO) Orlando Haas [id number] Kaila Dequasie 02/05/2025 SLIDING FEE SCHEDULE - [...] for depo MERCEDEZ Cope Attn: Accounting, [address] [place], [address], [facility] - [facility] 04/09/2024 12:13:46 08/27/19 25 [...] depo 04/09/24 MERCEDEZ Cope Attn: Accounting, [address] [place], [address], [place] 08/27/2024 15:02:32 12/19/19 25 text/htm l ROS as noted in the HPI had diarrhea and stomach upset for 3 days..feeling better now... Samir [place] PA-C Attn: Accounting, [address] [facility], [place], [address], [facility] - SIF 12/18/2024 11:32:02 01/02/20 25 text/htm l ROS as noted in the HPI hemm are feeling better but not reducing in size..needs surg referral Samir [place] PA-C Attn: Accounting, [address] [facility], [place], [address], [facility] - [facility] 01/01/2025 12:46:38 OBGyn Episode No OBEpisode recorded.
--- OUTSIDE RECORDS SUMMARY | 2025-05-22 18:36 | XMS_ITS | Clinical Summary ---
Author Organization [facility] Address [facility] [place] [address] Care Team Providers Care Offset Machine Operator Name Role Phone Pippa Cheek MD Primary Care Provider Allergies No known active allergies Medications HYDROcodone-acet aminophen (NORCO) 5-325 MG tablet Take 1 tablet by mouth every 6 (six) hours as needed for Pain. 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
--- OUTSIDE RECORDS SUMMARY | 2025-05-22 18:36 | XMS_ITS | Clinical Summary ---
Author Organization [facility] Address [address] [facility] [place] [address] Care Team Providers Care Identifier Horse Name Role Phone Pippa Cheek MD Primary Care Provider [phone] Source Comments [facility],non-owned Affiliates and Associated Physician Practices is amultiple site organization consisting of ambulatory clinics and hospital sitesin [place], [place], [place] and [place]. This disclosure is being madepursuant to the Care Everywhere program and may not contain all information available regarding this patient. 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
--- OUTSIDE RECORDS SUMMARY | 2025-05-22 18:36 | XMS_ITS | Clinical Summary ---
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 Gender Identity Not on file Sexual Orientation Not on file Last Filed Vital Signs Vital Sign Reading Time Taken Comments Blood Pressure 132/62 10/05/2021 1:32 PM FRESH FOOD MANAGER Pulse 67 10/05/2021 1:32 PM FRESH FOOD MANAGER Temperature 35.8 C (96.4 F) 10/05/2021 1:32 PM FRESH FOOD MANAGER Respiratory Rate - - Oxygen Saturation 98% 10/05/2021 1:32 PM FRESH FOOD MANAGER Inhaled Oxygen Concentration - - Weight 54.4 kg (120 lb) 10/05/2021 1:32 PM FRESH FOOD MANAGER Height 157.5 cm (5' 2) 10/05/2021 1:32 PM FRESH FOOD MANAGER Body Mass Index 21.95 10/05/2021 1:32 PM FRESH FOOD MANAGER Plan of Treatment Health Maintenance Due Date [...] to complete this topic Insurance MEDICAID AETNA [facility] MEDICAID AETNA BETTER HEALTH Care Teams Supervisor Fiber Locking Relationship Specialty Start Date End Date Gregorio Wilson PAC [address] [place] [address] PCP - General Physician Set Off Press Operator 10/05/21 Robbie Mandel MD [address] [address] Consulting Physician Colon and Rectal Surgery 10/05/21
--- NOTE | 2025-05-22 18:38 | ED.NAVMDI ---
HPI - Nausea/Vomiting/Diarrhea General Chief complaint: Nausea/Vomiting/Diarrhea Stated complaint: VOMITING Source: patient Mode of arrival: ambulatory Limitations: no limitations History of Present Illness HPI Narrative: 20 years old white female came to the ED with her mom from home complaining of a lot of vomiting, at least 4 episodes of diarrhea and right lower quadrant pain started 10 hours prior to arrival. Patient denies any upper respiratory symptoms, fever, or chills. Patient denies sick contacts. History of cholecystectomy and appendectomy. Related Data Allergies Allergy/AdvReac Type Severity Reaction Status Date / Time No Known Allergies Allergy Verified 05/22/25 21:02 Review of Systems Review of Systems: All systems reviewed & are unremarkable except as noted in HPI and below PMFSH Past Medical History Medical History Vasovagal syncope Ingrown nail of great toe of right foot GERD (gastroesophageal reflux disease) Depression Abdominal pain Surgical History Surgical History History of appendectomy Family History Family History Mother Abdominal pain Colon polyp Social History Social History Smoking status: Never smoker Alcohol intake: never Substance use type: marijuana Other substance usage details: occasional Exam Narrative: General appearance: Well-developed, well-nourished, restless, anxious Skin: Normal color Head: Normocephalic, nontraumatic Eyes: Clear conjunctiva ENT: Oropharynx normal, ears normal, nose normal Neck: Supple, nontender Chest and respiratory: Airway patent, no respiratory distress, no accessory muscle use Heart: Regular rate/rhythm Abdomen: Soft, right abdominal tenderness, no guarding or rebound, no organomegaly, quiet bowel sounds Musculoskeletal: Normal range of motion, nontender back Neurologic: Alert and oriented ?3, PAID INTERN is normal as tested, no gross motor deficit Course Consultations Consultation #1: DR WALSH, THORACIC SURGEON ON-CALL Date: 05/22/25 Consultation #2: DR GRAY, ED PHYSICIAN AT [facility] WHO ACCEPTED PATIENT TRANSFER Date: 05/22/25 Vital Signs Vital signs: Vital Signs Temperature 36.6 C 05/22/25 18:34 Pulse Rate 86 05/22/25 18:34 Respiratory Rate 24 H 05/22/25 18:34 Blood Pressure 120/95 H 05/22/25 18:34 Pulse Oximetry 93 05/22/25 18:34 Oxygen Delivery Room Air 05/22/25 18:34 Temperature 36.9 C 05/22/25 21:54 Pulse Rate 94 05/22/25 21:54 Respiratory Rate 18 05/22/25 21:54 Blood Pressure 109/70 05/22/25 21:54 Pulse Oximetry 100 05/22/25 21:54 Oxygen Delivery Room Air 05/22/25 21:54 MDM - Nausea/Vomiting/Diarrhea MDM Narrative Medical decision making narrative: Patient came to the ED with nausea vomiting and diarrhea Vital signs are stable Physical examination showing anxious, restless patient, mild tenderness right abdomen without guarding or rebound Differential diagnosis include gastroenteritis, electrolyte imbalance, dehydration, urinary tract infection, pancreatitis, colitis, diverticulitis. Blood workup today includes CBC, CMP, lipase showed WBC 14.7 otherwise within normal limit On arrival patient started on normal saline, Valium 5 mg IV, Zofran 8 mg IV with remarkable improvement, patient was able to get a nap, woke up from the nap with retrosternal chest pain. Patient requested ice chips, Chest x-ray showed CT abdomen and pelvis with IV contrast showed Urinalysis showed Differential Diagnosis Differential diagnosis: Likely food poisoning, gastroenteritis, drug-induced nausea and vomiting and dehydration Medical Records Attestation: I reviewed the patient's medical records. Lab Data Attestation: I reviewed the patient's lab results. 05/22/25 19:00 05/22/25 19:00 Labs: Lab Results 05/22/25 Range/Units 19:00 WBC 14.7 H (4.8-10.8) K/mm3 RBC 4.45 (4.20-5.40) M/mm3 Hgb 13.1 (12.0-15.0) g/dL Hct 38.9 (35.0-49.0) % MCV 87.4 (78.0-102.0) fL MCH 29.4 (27.0-31.0) pg MCHC 33.7 (32-36) g/dL RDW 13.6 (11.6-14.4) % Plt Count 322 (150-420) K/mm3 MPV 10.1 (9.2-11.8) fl Immature Gran % (Auto) 0.3 H (0.0-0.0) % Neut % (Auto) 91.2 H (50.0-70.0) % Lymph % (Auto) 5.9 L (18.0-42.0) % [place] % (Auto) 2.5 (2.0-11.0) % Eos % (Auto) 0.0 L (1.0-6.0) % Baso % (Auto) 0.1 (0.0-1.0) % Lymph # (Auto) 0.87 L (1.10-4.50) K/mm3 [place] # (Auto) 0.37 (0.10-0.90) K/mm3 Eos # (Auto) 0.00 L (0.02-0.50) K/mm3 Baso # (Auto) 0.02 (0.00-0.10) K/mm3 Abs Immat Gran (auto) 0.05 H (0.00-0.00) K/mm3 Absolute Neuts (auto) 13.34 H (1.70-7.20) K/mm3 Absolute Nucleated RBC 0.00 (0.00-0.00) K/mm3 Nucleated RBC % 0.0 (0-0.0) % Sodium 139 (137-145) mmol/L Potassium 4.0 (3.4-5.0) mmol/L Chloride 104 (98-107) mmol/L Carbon Dioxide 22 (22-30) mmol/L Anion Gap 13 H (4-12) mmol/L BUN 15 D (7-17) mg/dL Creatinine 0.56 L (0.7-1.0) mg/dL Estim Creat Clear Calc 106 ml/min Estimated GFR > 60 (59 - ) Glucose 149 H (65-110) mg/dL Calculated Osmolality 291 (285-295) mOsm/kg Calcium 9.5 (8.4-10.2) mg/dL Total Bilirubin 0.6 (0.2-1.3) mg/dL AST 33 (14-36) U/L ALT 29 (6-35) U/L Alkaline Phosphatase 56 (38-126) U/L Total Protein 8.6 H (6.3-8.2) g/dL Albumin 5.1 (3.5-5.1) g/dL Lipase 31 (23-300) U/L Serum HCG, Qual Negative Imaging Data Radiologist's impression: Impressions Chest/Abdomen/Pelvis CT 05/22/25 21:05 IMPRESSION: Mediastinal likely cysts secondary to a esophageal tear. No pathologic enhancement is noted. No pathologically enlarged mediastinal lymphadenopathy is noted. CT abdomen and pelvis with contrast: Periportal edema is noted. No intrahepatic mass or ductal dilatation is evident. The patient has had a cholecystectomy. The pancreas and spleen are normal in appearance. The adrenal glands are symmetric in size. The kidneys demonstrate symmetric uptake and excretion of contrast. No cystic mass is evident. There is no solid mass. There is no hydronephrosis. Evaluation of the stomach and bowel loops are limited due to lack of oral contrast. The bladder and rectum are normal. No free intraperitoneal fluid or air is evident. There is no significant retroperitoneal lymphadenopathy. The aorta, visceral vessels and renal arteries demonstrate normal caliber and patency. The lower thoracic and lumbar vertebrae are in normal alignment. IMPRESSION: No acute abnormality is noted in the abdomen and pelvis. All CT scans at this facility are performed using low dose modulation techniques as appropriate to perform exam including the following: automated exposure control; use of iterative reconstruction technique; adjustment of the mA and/or kV according to patient size (this includes techniques or standardized protocols for targeted exams where dose is matched to indication/reason for exam) Critical Care Time Critical Care Time Critical Care Time: Yes Total Critical Care Time: 30 Discharge Plan Discharge Clinical Impression: Esophageal tear, Pneumomediastinum, Gastroenteritis Patient Disposition: Acute Care Hospital Condition: Stable Additional Instructions: TRANSFERRED TO [facility]/ED Patient Language: Icelandic Prescriptions: No Action metronidazole 500 mg tablet 500 mg PO BID 7 Days Qty: 14 0RF sulfamethoxazole-trimethoprim [Bactrim DS] 800-160 mg tablet 1 tablet PO BID 7 Days Qty: 14 0RF ondansetron 4 mg tablet,disintegrating 4 mg PO Q8H PRN (Reason: nausea and vomiting) Qty: 20 0RF cephalexin 500 mg capsule 500 mg PO BID 5 Days Qty: 10 0RF amoxicillin-pot clavulanate [Augmentin] 500-125 mg tablet 1 tablet PO TID Qty: 30 0RF mupirocin [Centany] 2 % ointment 1 applic topical TID 7 Days Qty: 15 0RF hydrocortisone acetate [Anusol-HC] 25 mg suppository 25 mg RECTAL TID 4 Days Qty: 12 0RF lidocaine HCl 3 % cream 1 applic topical TID PRN (Reason: pain) Qty: 28.3 0RF Follow-up/Referrals: Katie,BAO Mcclure [Primary Care Provider]
[2025-05-22] MEDS: SODIUM CHLORIDE 0.9% IV 2,000 ML 999 ML IV CONT (18:45)
[2025-05-22] MEDS: ONDANSETRON INJ 4 MG/2 ML VIAL 8 MG IV PUSH (18:48)
[2025-05-22] MEDS: diazePAM INJ (*CRX) 10 MG/2 ML SYRINGE 5 MG IV PUSH (18:50)
--- NOTE | 2025-05-22 18:55 | PC.NURSE ---
REPORT TO SANTA SCHULTZ
--- NOTE | 2025-05-22 18:56 | PC.NURSE ---
LAB AT THE BEDSIDE
[2025-05-22 19:05] LABS: Hematocrit 38.9 % (35.0-49.0); Hemoglobin 13.1 g/dL (12.0-15.0); Immature Granulocyte Percent A 0.3 % (0.0-0.0); Lymphocytes Absolute Auto 0.87 K/mm3 (1.10-4.50); Mean Corpuscular HGB Conc 33.7 g/dL (32-36); Mean Corpuscular Hemoglobin 29.4 pg (27.0-31.0); Mean Corpuscular Volume 87.4 fL (78.0-102.0); Nucleated Red Blood Cells Absolute Auto 0.00 K/mm3 (0.00-0.00); Nucleated Red Blood Cells Perc 0.0 % (0-0.0); Platelet Count Result 322 K/mm3 (150-420); Red Blood Count 4.45 M/mm3 (4.20-5.40); White Blood Count 14.7 K/mm3 (4.8-10.8)
[2025-05-22 19:17] LABS: Alanine Aminotransferase 29 U/L (6-35); Albumin Level 5.1 g/dL (3.5-5.1); Alkaline Phosphatase 56 U/L (38-126); Anion Gap 13 mmol/L (4-12); Aspartate Amino Transferase 33 U/L (14-36); Bilirubin,Total 0.6 mg/dL (0.2-1.3); Blood Urea Nitrogen 15 mg/dL (7-17); Calcium 9.5 mg/dL (8.4-10.2); Carbon Dioxide 22 mmol/L (22-30); Chloride 104 mmol/L (98-107); Estimated CRCL calculation 106 ml/min; Estimated Glomerular Filt Rate > 60; Glucose 149 mg/dL (65-110); Lipase 31 U/L (23-300); Osmolality Calculated 291 mOsm/kg (285-295); Potassium 4.0 mmol/L (3.4-5.0); Sodium 139 mmol/L (137-145); Total Protein 8.6 g/dL (6.3-8.2)
--- OUTSIDE RECORDS SUMMARY | 2025-05-22 19:21 | XMS_ITS | Clinical Summary ---
Author Organization [facility] Address [address] [place] [address] Care Team Providers Care Tray Room Worker Name Role Phone Pippa Cheek MD Primary Care Provider [phone] [facility],non-owned Affiliates and Associated Physician Practices is amultiple site organization consisting of ambulatory clinics and hospital sitesin [place], [place], [place] and [place]. This disclosure is being madepursuant to the Care Everywhere program and may not contain all information available regarding this patient. Last updated 18.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
--- OUTSIDE RECORDS SUMMARY | 2025-05-22 19:21 | XMS_ITS | Clinical Summary ---
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 Gender Identity Not on file Sexual Orientation Not on file Last Filed Vital Signs Vital Sign Reading Time Taken Comments Blood Pressure 132/62 10/05/2021 1:32 PM LINE SERVICE ATTENDANT Pulse 67 10/05/2021 1:32 PM LINE SERVICE ATTENDANT Temperature 35.8 C (96.4 F) 10/05/2021 1:32 PM LINE SERVICE ATTENDANT Respiratory Rate - - Oxygen Saturation 98% 10/05/2021 1:32 PM LINE SERVICE ATTENDANT Inhaled Oxygen Concentration - - Weight 54.4 kg (120 lb) 10/05/2021 1:32 PM LINE SERVICE ATTENDANT Height 157.5 cm (5' 2) 10/05/2021 1:32 PM LINE SERVICE ATTENDANT Body Mass Index 21.95 10/05/2021 1:32 PM LINE SERVICE ATTENDANT Plan of Treatment Health Maintenance Due Date [...] to complete this topic Insurance MEDICAID AETNA [facility] MEDICAID [employer] Care Teams Public Health Doctor Relationship Specialty Start Date End Date Gregorio Wilson PAC [address] [place] [address] PCP - General Physician Title Searcher 10/05/21 Robbie Mandel MD [address] [address] Consulting Physician Colon and Rectal Surgery 10/05/21
--- OUTSIDE RECORDS SUMMARY | 2025-05-22 19:21 | XMS_ITS | Clinical Summary ---
Author Organization [facility] Address [facility] [place] [address] Care Team Providers Care Personnel Officer Name Role Phone Pippa Cheek MD Primary Care Provider [phone] Allergies No known active allergies Medications HYDROcodone-acet aminophen (NORCO) 5-325 MG tablet Take 1 tablet by mouth every 6 (six) hours as needed for Pain. 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
--- NOTE | 2025-05-22 19:37 | PC.NURSE ---
PATIENT GETTING UP TO BEDSIDE COMMODE FOR URINE SAMPLE
--- NOTE | 2025-05-22 19:45 | PC.NURSE ---
PATIENT WAS UNABLE TO GIVE A URINE SAMPLE. PATIENT RETURNED BACK TO STRETCHER AND WARM BLANKET PLACED. REPORTS CHEST PAIN. DR SORENSON WAS NOTIFIED.
--- NOTE | 2025-05-22 19:55 | PC.NURSE ---
DR SORENSON AT THE BEDSIDE.
--- NOTE | 2025-05-22 20:00 | PC.NURSE ---
ICE CHIPS GIVEN BY TECH. DARSHANA
[2025-05-22 20:31] LABS: SPREG INTERNAL CONTROL Positive; Serum Qual hCG Negative
[2025-05-22] MEDS: ONDANSETRON INJ 4 MG/2 ML VIAL IV PUSH (20:37)
[2025-05-22] MEDS: HYDROmorphone HCL INJ (*CRX) 2 MG/ML VIAL 0.5 MG IV PUSH (20:37)
--- NOTE | 2025-05-22 20:42 | PC.NURSE ---
PATIENT CONTINUES TO REPORT CHEST PAIN AND BEING UNCOMFORTABLE. PATIENT MEDICATED FOR PAIN PER MAR
--- NOTE | 2025-05-22 20:43 | PC.NURSE ---
PATIENT BEING TRANSPORTED TO CT VIA STRETCHER.
--- NOTE | 2025-05-22 20:53 | PC.NURSE ---
PATIENT RETURNED FROM CT. PATIENT APPEARS MORE RELAXED. LAYING BACK ON STRETCHER. PATIENT REPORTS THAT THE DILAUDID IS HELPING WITH HER PAIN
--- NOTE | 2025-05-22 21:34 | PC.NURSE ---
DR SORENSON AT THE BEDSIDE. NOTIFIED DR SORENSON THAT HE HAD A PHONE CALL FOR [facility].
--- NOTE | 2025-05-22 21:41 | PC.NURSE ---
SECOND SISTER HAS ARRIVED TO BE WITH PATIENT. PATIENT CONTINUES TO REPORT THAT SHE IS FEELING BETTER AFTER DILAUDID
--- NOTE | 2025-05-22 21:52 | PC.NURSE ---
DR SORENSON AT THE BEDSIDE.
--- NOTE | 2025-05-22 22:05 | PC.NURSE ---
PATIENT UNDERSTANDS REASON FOR TRANSFER TO [facility]. ALL PAPERWORK SIGNED AND PREPARED FOR U
--- NOTE | 2025-05-22 22:14 | PC.NURSE ---
covid swab sent to lab
[2025-05-22 22:31] LABS: Add Urine Microscopic? NO; Appearance Urine Clear (Clear); Glucose Urine UA Negative (Negative); Leukocyte Esterase Ur Negative LEU/UL (Negative); Nitrate Urine Negative (Negative); Specific Grav Ur 1.010 (1.010-1.020)
[2025-05-22 23:05] LABS: Influenza A QL RT-PCR Negative (Negative); Influenza B QL RT-PCR Negative (Negative); RSV RNA, RT-PCR Negative (Negative); SARS-CoV-2 RNA PCR Negative (Negative)
== END 2025-05-22 22:30 | disposition short-term general hospital (02) ==
PROVIDERS: Emergency Provider Emergency Medicine; PCP Physician Assistant
DX: J98.2 Interstitial emphysema (principal); K52.9 Noninfective gastroenteritis and colitis, unspecified; S11.21XA Laceration without foreign body of pharynx and cervical esophagus, initial encounter; X58.XXXA Exposure to other specified factors, initial encounter; Z20.822 Contact with and (suspected) exposure to COVID-19
CPT/HCPCS: 36415; 71260; 74177; 80053; 81003; 83690; 84703; 85025; 87637; 96361; 96374; 96375; 96376; 99285; J1171; J2405; J3360; J7030; Q9967

== ENCOUNTER 2025-07-27 23:05 | Emergency (ER) | payer SELFPAY ==
[2025-07-27 23:05] VITALS: BP 116/75; PULSE 90; RESP 16; TEMP 36.7; O2SAT 99
--- OUTSIDE RECORDS SUMMARY | 2025-07-27 23:09 | XMS_ITS | Clinical Summary ---
Author Organization [facility] Address [address] [place] [address] Care Team Providers Care Game Producer Name Role Phone Gregorio Wilson Primary Care Provider [phone] Source Comments [facility],non-owned Affiliates and Associated Physician Practices is amultiple site organization consisting of ambulatory clinics and hospital sitesin [place], [place], [place] and [place]. This disclosure is being madepursuant to the Care Everywhere program and may not contain all information available regarding this patient. Last updated 18.[facility] Allergies No known active allergies Medications * Be aware that medications may not be up to date on this document. Alwaysverify current medications with the patient. ALBUTEROL IN Inhale 2 Puffs by mouth every 4 hours as needed. Active erythromycin (ROMYCIN) 5 MG/GM ophthalmic ointment Instill into right eye 4 times daily 3.5 g 2 05/13/2019 Active acetaminophen (Tylenol) 160 MG/5ML suspension Take 20.3 mL by mouth every 6 hours as needed 05/24/2025 Active pantoprazole EC (Protonix) 40 MG tablet Take 1 (one) tablet by mouth 2 times daily 60 tablet 1 05/24/2025 Active ondansetron, disintegrating, (Zofran ODT) 4 MG tablet Take 1 (one) tablet by mouth every 6 hours as needed for Nausea/Vomiti ng Allow tablet to dissolve on the tongue 12 tablet 05/24/2025 Active Active Problems Problem Noted Date Diagnosed Date Esophageal perforation 05/23/2025 Nausea and vomiting, unspecified vomiting type 1 Closed fracture of left distal radius 05/24/2017 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 Encounters Date Type Department Care Team Description 05/22/2025 11:21 PM CDT - 05/24/2025 6:22 PM CDT Hospital Encounter [facility] ACUTE [address] [place] [address] Willam Gilmore MD Cardiothoracic Surgery Discharge Disposition: Home or Self Care 05/22/2025 Travel from Last 3 Months Family History Medical History Relation Name Comments Amblyopia Sister Anesthesia Reaction Sister adverse reaction to Versed Cataract Sister Relation Name Status Comments Sister Social History Tobacco Use Types Packs/Day Years Used Date Smoking Tobacco: Passive Smo ke Exposure - Never Smoker Smokeless Tobacco: Never Alcohol Use Standard Drinks/Week Comments Yes 2 (1 standard drink = 0.6 oz pur e alcohol) AUDIT-C Answer Date Recorded Q1: How often do you have a drink containing alc ohol? 2-3 times a week 05/23/2025 Q2: How many drinks containi ng alcohol do you have on a typical day when you are drinking? 1 or 2 05/23/2025 Q3: How often do you have si x or more drinks on one occasion? Monthly 05/23/2025 Overall Financial Resource Strain (CARDIA) Answe r Date Recorded How hard is it for you to pa y for the very basics like food, housing, medical care, and heating? Not hard at all 05/23/2025 [facility] - Occupational Stress Questionnaire Answer Date Recorded Do you feel stress - tense, restless, nervous, or anxious, or unable to sleep at night because your mind is troubled all the time - these days? Only a little 05/23/2025 Hunger Vital Sign Answer Date Recorded Within the past 12 months, y ou worried that your food would run out before you got the money to buy more. Never true 05/23/20 Within the past 12 months, t he food you bought just didn't last and you didn't have money to get more. Never true 05/23/2025 PRAPARE - Transportation Answer Date Re corded In the past 12 months, has l ack of transportation kept you from medical appointments or from getting medications? No 04/30 In the past 12 months, has l ack of transportation kept you from meetings, work, or from getting things needed for daily living? No 05/23/2025 Housing Stability Vital Sign Answer Jay e Recorded In the last 12 months, was t here a time when you were not able to pay the mortgage or rent on time? No 05/23/2025 In the past 12 months, how m any times have you moved where you were living? 0 05/23/2025 At any time in the past 12 m [place], were you homeless or living in a half-way (including now)? 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 Gender Identity Not on file Sexual Orientation Not on file Last Filed Vital Signs Vital Sign Reading Time Taken Comments Blood Pressure 108/84 05/24/2025 4:33 PM CDT Pulse 54 05/24/2025 4:33 PM CDT Temperature 37.2 C (98.9 F) 05/24/2025 4:33 PM CDT Respiratory Rate 18 05/24/2025 11:50 AM CDT Oxygen Saturation 100% 05/24/2025 4:33 PM CDT Inhaled Oxygen Concentration - - Weight 59 kg (130 lb) 05/23/2025 5:00 AM CDT Height 157.5 cm (5' 2) 05/23/2025 5:00 AM CDT Body Mass Index 23.78 05/23/2025 5:00 AM CDT Plan of Treatment Health Maintenance Due Date Last Done Comments HIV SCREENING 2019 HPV VACCINE (1 - 3-dose series) 2019 CHLAMYDIA/GONORRHEA SCREENING 2020 MENINGOCOCCAL (Group B) VACCINE SHARED DECISION-MAKING (1 of 2 - Standard) 2020 HEPATITIS C SCREENING 05/02/2022 DTAP/TDAP/TD VACCINES (1 - Tdap) 2023 HEPATITIS B VACCINE (1 of 3 - 19+ 3-dose series) 2023 DEPRESSION SCREENING 07/30/2024 COVID-19 VACCINE (1 - 2024- season) 2025 INFLUENZA VACCINE (#1) 2025 9, 05/30/2018, 07/04/2017, Additional history exists PAP SMEAR 2025 ZOSTER VACCINE (1 of 2) 2054 HIB VACCINE Aged Out No longer eligi ble based on patient's age to complete this topic MENINGOCOCCAL GROUPS A/C/Y/W VACCINE Aged Out No longer eligible based on patient's age to complete this topic PNEUMOCOCCAL VACCINE Aged Out No long er eligible based on patient's age to complete this topic Procedures Procedure Name Priority Date/Time Associated Diagnosis Comments CARDIAC EKG ORDER 05/25/2025 11: 33 AM CDT PHOSPHORUS BLOOD AM Draw 05/24/2025 6:23 AM CDT MAGNESIUM BLOOD Routine 05/24/2025 6:23 AM CDT CBC W AUTO DIFFERENTIAL AM Draw 05/24/2025 6:23 AM CDT BASIC METABOLIC PANEL (CALCIUM TOTAL) Routine 05/24/2025 6:23 AM CDT FL ESOPHAGRAM Routine 05/23/2025 10:07 AM CDT Esophageal perforation URINALYSIS REFLEX TO MICROSCOPIC NO CULTURE STAT 05/23/2025 4:45 AM CDT PHOSPHORUS BLOOD STAT 05/23/2025 4:44 AM CDT MAGNESIUM BLOOD STAT 05/23/2025 4:44 AM CDT CBC W AUTO DIFFERENTIAL STAT 05/23/2025 4:44 AM CDT BASIC METABOLIC PANEL (CALCIUM TOTAL) STAT 05/23/2025 4:[address] CHEST W CONTRAST STAT 05/23/2025 3 :32 AM CDT Esophageal perforation XR CHEST 1VW PORTABLE STAT 05/23/2025 2:13 AM CDT Esophageal perforation BLOOD TYPE VERIFICATION STAT 05/23/2025 1:30 AM CDT TROPONIN-I HIGH SENSITIVE REFLEX 1HOUR Timed 05/23/2025 1:30 AM CDT CULTURE BLOOD Timed 05/22/2025 11:53 PM CDT CULTURE BLOOD Timed 05/22/2025 11:38 PM CDT TYPE + SCREEN PANEL STAT 05/22/2025 1 1:34 PM CDT HCG BETA BLOOD QUANTITATIVE STAT 05/22/2025 11:34 PM CDT PT-INR STAT 05/22/2025 11:34 PM CDT TROPONIN-I HIGH SENSITIVE BASELINE + 1HR STAT 05/22/2025 11:34 PM CDT LACTIC ACID BLOOD REFLEX TO REPEAT STAT 05/22/2025 11:34 PM CDT COMPREHENSIVE METABOLIC PANEL STAT 05/22/2025 11:34 PM CDT CBC W AUTO DIFFERENTIAL STAT 05/22/2025 11:34 PM CDT from Last 3 Months Results * CARDIAC EKG ORDER (05/25/2025 11:33 AM CDT) Narrative 05/25/2025 11:33 AM CDT Ordered by an unspecified provider. us Scanned Document CARDIAC SERVICES ORDERABLES Fin al Result * (ABNORMAL) CBC W AUTO DIFFERENTIAL (05/24/2025 6:23 AM CDT) Only the most recent of3 resultswithin the time period is included. WBC 6.3 4.0 - 10.7 x10E9/L 05/24/2025 8:21 AM CDT [facility] RBC Count 3.57(L) 3.90 - 5.20 x10E12/L 05/24/2025 8:21 AM [facility] Hemoglobin 10.8(L) 11.9 - 15.8 g/dL 05/24/2025 8:21 AM [facility] Hematocrit 30.6(L) 34.8 - 46.1 % 05/24/2025 8:21 AM [facility] MCV 85.7 80.0 - 98.0 fL 05/24/2025 8:21 AM [facility] MCH 30.3 26.7 - 33.6 pg 05/24/2025 8:21 AM [facility] MCHC 35.3 31.7 - 36.3 g/dL 05/24/2025 8:21 AM [facility] RDW-CV 13.7 11.3 - 14.8 % 05/24/2025 8:21 AM [facility] Platelet Count 189 150 - 420 x10E9/L 05/24/2025 8:21 AM [facility] MPV 10.9 7.8 - 11.4 fL 05/24/2025 8:21 AM [facility] Neutrophil % 48.0 41.0 - 74.0 % 05/24/2025 8:21 AM [facility] Lymphocyte % 43.0 17.0 - 47.0 % 05/24/2025 8:21 AM [facility] Monocyte % 7.7 3.0 - 11.0 % 05/24/2025 8:21 AM [facility] Eosinophil % 0.8 0.0 - 7.0 % 05/24/2025 8:21 AM [facility] Basophil % 0.3 0.0 - 1.6 % 05/24/2025 8:21 AM [facility] Immature Granulocytes % 0.2 0.0 - 1.0 % 05/24/2025 8:21 AM [facility] Neutrophil Absolute 3.01 1.60 - 7.50 x10E9/L 05/24/2025 8:21 AM [facility] Lymphocyte Absolute 2.69 1.00 - 4.40 x10E9/L 05/24/2025 8:21 AM [facility] Monocyte Absolute 0.48 0.15 - 1.00 x10E9/L 05/24/2025 8:21 AM [facility] Eosinophil Absolute 0.05 0.00 - 0.60 x10E9/L 05/24/2025 8:21 AM [facility] Basophil Absolute 0.02 0.00 - 0.13 x10E9/L 05/24/2025 8:21 AM [facility] Blood BLOOD SPECIMEN / Unknown Lab Venipuncture / Unknown 05/24/2025 6:23 AM CDT 05/24/2025 7:53 AM CDT us Willam Gilmore MD LAB - HEMATOLOGY ORDERABLES Fi nal Result [address] [address], [facility] [phone] * (ABNORMAL) BASIC METABOLIC PANEL (CALCIUM TOTAL) (05/24/2025 6:23 AM T) Only the most recent of2 resultswithin the time period is included. BUN 6(L) 7 - 26 mg/dL 05/24/2025 8:25 AM [facility] Creatinine 0.58 0.56 - 0.96 mg/dL 05/24/2025 8:25 AM [facility] Sodium 138 136 - 145 mmol/L 05/24/2025 8:25 AM [facility] Potassium 3.3(L) 3.5 - 4.5 mmol/L 05/24/2025 8:25 AM [facility] Chloride 114(H) 98 - 107 mmol/L 05/24/2025 8:25 AM [facility] CO2 22 22 - 29 mmol/L 05/24/2025 8:25 AM [facility] Glucose 75 70 - 99 mg/dL 05/24/2025 8:25 AM [facility] Calcium 8.2(L) 8.4 - 10.2 mg/dL 05/24/2025 8:25 AM [facility] Anion Gap 2(L) 6 - 16 05/24/2025 8:25 AM [facility] BUN/Creatinine Ratio 10 7 - 23 05/24/2025 8:25 AM CDT [facility] Osmolality Calculated 282 275 - 295 mOsm/kg 05/24/2025 8:25 AM CDT [facility] eGFR by CKD-EPI >90 >=90 mL/min/1.7 3 m2 05/24/2025 8:25 AM CDT [facility] Comment:Estimated Glomerular Filtration Rate (eGFR) calculated using the CKD-EPI Creatinine Equation (2020), per the National Kidney Foundation and [place] [employer] Neph[employer] recommendations. Blood BLOOD SPECIMEN / Unknown Lab Venipuncture / Unknown 05/24/2025 6:23 AM CDT 05/24/2025 7:53 AM CDT Willam Gilmore MD LAB - CHEMISTRY ORDERABLES Fin al Result [address] [address], [place] [phone] * (ABNORMAL) PHOSPHORUS BLOOD (05/24/2025 6:23 AM CDT) Only the most recent of2 resultswithin the time period is included. Phosphorus 2.2(L) 2.9 - 5.1 mg/dL 05/24/2025 8:25 AM CDT [facility] Blood BLOOD SPECIMEN / Unknown Lab Venipuncture / Unknown 05/24/2025 6:23 AM CDT 05/24/2025 7:53 AM CDT Willam Gilmore MD LAB - CHEMISTRY ORDERABLES Fin al Result [address] [address], [place] [phone] * MAGNESIUM BLOOD (05/24/2025 6:23 AM CDT) Only the most recent of2 resultswithin the time period is included. Magnesium 1.9 1.6 - 2.6 mg/dL 05/24/2025 8:25 AM CDT [facility] Blood BLOOD SPECIMEN / Unknown Lab Venipuncture / Unknown 05/24/2025 6:23 AM CDT 05/24/2025 7:53 AM CDT us Willam Gilmore MD LAB - CHEMISTRY ORDERABLES Fin al Result [facility] [address] [place] [address], [facility] [phone] * FL Esophagram (05/23/2025 10:07 AM CDT) Anatomical Region Laterality Modality Chest Digital Radiogra phy 05/23/2025 10:2 5 AM CDT Impressions 05/25/2025 10:34 AM CDT IMPRESSION: No evidence of contrast leak to suggest perforation. Report dictated by Rancho Morin MD, MD (radiology transporter). > Dictated by Rancho Morin MD 05/23/2025 10:25 AM > Dictated by Child And Adolescent Therapist I, Tracie Frazier MD have personally reviewed and interpreted this examination/study. > Interpreting Provider: Tracie Frazier MD on 05/25/2025 10:34 AM Narrative 05/25/2025 10:34 AM CDT PROCEDURE: FL ESOPHAGRAM, DATE/TIME OF EXAM: 05/23/2025 10:09 AM, LOCATION [facility] INDICATION: K22.3: Esophageal perforation ADDITIONAL CLINICAL INFORMATION: Ordering Provider Reason For Exam: rule out esophageal perforation Pneumomediastinum. COMPARISON: None. FLUOROSCOPY DOSE: 114.1 mGy Reference air kerma (ka,r). FLUOROSCOPY TIME: 1.2 minutes TECHNIQUE: Fluoroscopic images were obtained as the patient ingested contrast, (Isovue-300 water-soluble). FINDINGS: No evidence of contrast leak. Esophageal contour and caliber are normal. There is no extravasation of contrast to suggest leak. Procedure Note Tracie Frazier MD - 05/25/2025 PROCEDURE: FL ESOPHAGRAM, DATE/TIME OF EXAM: 05/23/2025 10:09 AM, LOCATION [facility] INDICATION: K22.3: Esophageal perforation ADDITIONAL CLINICAL INFORMATION: Ordering Provider Reason For Exam: rule out esophageal perforation Pneumomediastinum. COMPARISON: None. FLUOROSCOPY DOSE: 114.1 mGy Reference air kerma (ka,r). FLUOROSCOPY TIME: 1.2 minutes TECHNIQUE: Fluoroscopic images were obtained as the patient ingested contrast, (Isovue-300 water-soluble). FINDINGS: No evidence of contrast leak. Esophageal contour and caliber are normal. There is no extravasationof contrast to suggest leak. IMPRESSION: No evidence of contrast leak to suggest perforation. Report dictated by Rancho Morin MD, MD (radiology transporter). > Dictated by Rancho Morin MD 05/23/2025 10:25 AM > Dictated by Child And Adolescent Therapist I, Tracie Frazier MD have personally reviewed and interpreted this examination/study. > Interpreting Provider: Tracie Frazier MD on 05/25/2025 10:34 AM us Willam Gilmore MD FLUOROSCOPY ORDERABLES Final R esult * (ABNORMAL) URINALYSIS REFLEX TO MICROSCOPIC NO CULTURE (05/23/2025 4:45 AM CDT) Color UA Colorless(A) Yellow, Straw 05/23/2025 5:49 AM [facility] Clarity UA Clear Clear 05/23/2025 5:49 AM [facility] Glucose UA Normal Normal 05/23/2025 5:49 AM [facility] Bilirubin UA Negative Negative 05/23/2025 5:49 AM [facility] Ketone UA 1+(A) Negative 05/23/2025 5:49 AM [facility] Specific Deering UA >1.050(H) 1.005 - 1.030 05/23/2025 5:49 AM [facility] Comment:Specific Deering per formed by manual refractometry. Blood UA Negative Negative 05/23/2025 5:49 AM [facility] pH UA 6.5 5.0 - 8.0 05/23/2025 5:49 AM [facility] Protein UA Negative Negative 05/23/2025 5:49 AM [facility] Urobilinogen UA Normal Normal mg/dL 05/23/2025 5:49 AM [facility] Nitrite UA Negative Negative 05/23/2025 5:49 AM [facility] Leukocyte Esterase UA Negative Negative 05/23/2025 5:49 AM CDT [facility] Urine Microscopy Urine microscopy not indicated 05/23/2025 5:49 AM CDT [facility] Urine URINE SPECIMEN OBTAINED BY CLEAN CATCH PROCEDURE / Unknown Collection / Unknown 05/23/2025 4:45 AM CDT 05/23/2025 5:31 AM CDT Leander Mehta MD LAB - URINALYSIS ORDERABLES Dulce l Result [facility] [address] [place] [address], [facility] [phone] * CT Chest W Contrast (05/23/2025 3:32 AM CDT) Anatomical Region Laterality Modality Chest Computed Tomogra phy 05/23/2025 4:06 AM CDT Impressions 05/23/2025 10:59 AM CDT Impression: 1.Pneumomediastinum with extension to the bilateral lower neck likely spontaneous. 2.No evidence of enteric contrast extravasation in the mediastinum. > Dictated by Lucy Campbell MD (radiology transporter). > Dictated by Lucy Campbell 05/23/2025 4:06 AM > Dictated by Child And Adolescent Therapist I, Jose E Harrell MD have personally reviewed and interpreted this examination/study. > Interpreting Provider: Jose E Harrell MD on 05/23/2025 10:59 AM Narrative 05/23/2025 10:59 AM CDT PROCEDURE: CT CHEST W CONTRAST, DATE/TIME OF EXAM: 05/23/2025 3:32 AM, LOCATION [facility] INDICATION: K22.3: Esophageal perforation ADDITIONAL CLINICAL INFORMATION: Ordering Provider Reason For Exam: rule out esophageal perforation COMPARISON: None. CONTRAST: IOPAMIDOL 76 % IV SOLN:100 mL ; IOPAMIDOL 61 % IV SOLN:100 mL TECHNIQUE: CT of the chest was performed following the uneventful administration of 100 mL of Isovue 370 intravenous contrast according to standard protocol. Findings: Lower Neck and Axillae: Soft tissue emphysema is present in the bilateral neck extending from the mediastinum. Lungs: No pulmonary parenchymal or airway process is present. No suspicious pulmonary nodules are identified. No pleural fluid or pneumothorax is present. Heart and Pericardium: The cardiac chambers are normal in size. No pericardial fluid or thickening is present. Mediastinum and Rachel: Pneumomediastinum is present. No evidence of periesophageal enteric contrast extravasation in the mediastinum. Small focus of enhancement inferior to the amita (series 3, image 44) favored to represent artifact Thoracic Vasculature: No vascular abnormality is present. Bones and Chest Wall: Bone windows demonstrate no suspicious lytic or blastic lesions. The visible osseous structures are intact. Upper Abdomen: Enteric contrast is present in the stomach. Cholecystectomy clips. Procedure Note Jose E Harrell MD - 05/23/2025 PROCEDURE: CT CHEST W CONTRAST, DATE/TIME OF EXAM: 05/23/2025 3:32 AM, LOCATION [facility] INDICATION: K22.3: Esophageal perforation ADDITIONAL CLINICAL INFORMATION: Ordering Provider Reason For Exam: rule out esophageal perforation COMPARISON: None. CONTRAST: IOPAMIDOL 76 % IV SOLN:100 mL ; IOPAMIDOL 61 % IV SOLN:100 mL TECHNIQUE: CT of the chest was performed following the uneventful administration of 100 mL of Isovue 370 intravenous contrast according to standard protocol. Findings: Lower Neck and Axillae: Soft tissue emphysema is present in the bilateral neck extending fromthe mediastinum. Lungs: No pulmonary parenchymal or airway process is present. No suspicious pulmonary nodules are identified. No pleural fluid or pneumothorax is present. Heart and Pericardium: The cardiac chambers are normal in size. No pericardial fluid orthickening is present. Mediastinum and Rachel: Pneumomediastinum is present. No evidence of periesophageal enteric contrast extravasation in the mediastinum. Small focus of enhancement inferior to the amita (series 3, image 44) favored to representartifact Thoracic Vasculature: No vascular abnormality is present. Bones and Chest Wall: Bone windows demonstrate no suspicious lytic or blastic lesions. The visible osseous structures are intact. Upper Abdomen: Enteric contrast is present in the stomach. Cholecystectomy clips. Impression: 1.Pneumomediastinum with extension to the bilateral lower neck likely spontaneous. 2.No evidence of enteric contrast extravasation in the mediastinum. > Dictated by Lucy Campbell MD (radiology transporter). > Dictated by Lucy Campbell 05/23/2025 4:06 AM > Dictated by Child And Adolescent Therapist I, Jose E Harrell MD have personally reviewed and interpreted this examination/study. > Interpreting Provider: Jose E Harrell MD on 05/23/2025 10:59 AM us Willam Gilmore MD CT ORDERABLES Final Result * XR Chest 1Vw Portable (05/23/2025 2:13 AM CDT) Anatomical Region Laterality Modality Chest Digital Radiogra phy 05/23/2025 2:33 AM CDT Narrative 05/23/2025 7:36 AM CDT PROCEDURE: XR CHEST 1VW PORTABLE, DATE/TIME OF EXAM: 05/23/2025 2:14 AM, LOCATION [facility] INDICATION: K22.3: Esophageal perforation ADDITIONAL CLINICAL INFORMATION: Ordering Provider Reason For Exam: Pneumomediastinum Technologist Note: Additional: COMPARISON: None. FINDINGS/IMPRESSION: There is moderate volume pneumomediastinum extending into the bilateral neck soft tissues. There is no focal consolidation, pleural effusion, or pneumothorax.Normal pulmonary vasculature.The cardiomediastinal silhouette is normal. The visible bony thorax is intact. > Dictated by Ruddy Busby MD, (radiology transporter). > Dictated by Ruddy Busby MD 05/23/2025 2:33 AM > Dictated by Child And Adolescent Therapist I, Kendra Caro MD have personally reviewed and interpreted this examination/study. > Interpreting Provider: Kendra Caro MD on 05/23/2025 7:36 AM Procedure Note Kendra Caro MD - 05/23/2025 PROCEDURE: XR CHEST 1VW PORTABLE, DATE/TIME OF EXAM: 05/23/2025 2:14AM, LOCATION [facility] INDICATION: K22.3: Esophageal perforation ADDITIONAL CLINICAL INFORMATION: Ordering Provider Reason For Exam: Pneumomediastinum Technologist Note: Additional: COMPARISON: None. FINDINGS/IMPRESSION: There is moderate volume pneumomediastinum extending into the bilateral neck soft tissues. There is no focal consolidation, pleural effusion, or pneumothorax.Normal pulmonary vasculature.The cardiomediastinalsilhouette is normal. The visible bony thorax is intact. > Dictated by Ruddy Busby MD, (radiology transporter). > Dictated by Ruddy Busby MD 05/23/2025 2:33 AM > Dictated by Child And Adolescent Therapist I, Kendra Caro MD have personally reviewed and interpreted this examination/study. > Interpreting Provider: Kendra Caro MD on 57:36 AM us Willam Gilmore MD DIAGNOSTIC IMAGING ORDERABLES Final Result * TROPONIN-I HIGH SENSITIVE REFLEX 1HOUR (05/23/2025 1:30 AM CDT) Troponin I High Sensitive <3 <=14 ng/L 05/23/2025 3:11 AM CDT [facility] Delta Troponin I HS 05/23/2025 3:11 AM CDT [facility] Comment:Delta value intentio lennox not calculated. Baseline to 1 hour specimen collection interval exceeded. Blood BLOOD SPECIMEN / Unknown Venipuncture / Unknown 05/23/2025 1:30 AM CDT 05/23/2025 1:46 AM CDT Leander Mehta MD LAB - CHEMISTRY ORDERABLES Final Result [facility] [address] [place] [address], [facility] [phone] * BLOOD TYPE VERIFICATION (05/23/2025 1:30 AM CDT) ABO Rh A POS 05/23/2025 2:3 6 AM CDT [facility] Blood Bank BLOOD SPECIMEN / Unknown Venipuncture / Unknown 05/23/2025 1:30 AM CDT 05/23/2025 1:37 AM CDT Leander Mheta MD LAB - BLOOD BANK ORDERABLES Dulce l Result [facility] [address] [place] [address], [place] [phone] * CULTURE BLOOD (05/22/2025 11:53 PM CDT) Only the most recent of2 resultswithin the time period is included. Pathologist [facility] Culture No growth day 5 YOVANI 05/28/2025 1:30 AM CDT [facility] Blood PERIPHERAL BLOOD / Unknown Venipuncture / Unknown 05/22/2025 11:53 PM CDT 05/22/2025 11:56 PM CDT us Leander Mehta MD LAB - MICROBIOLOGY ORDERABLES Fi nal Result [facility] [address] [place] [address], [place] [phone] * LACTIC ACID BLOOD REFLEX TO REPEAT (05/22/2025 11:34 PM CDT) Pathologist [facility] Lactic Acid-Stat 1.6 <=2.0 mmol/L 05/23/2025 12:10 AM CDT [facility] Blood BLOOD SPECIMEN / Unknown Venipuncture / Unknown 05/22/2025 11:34 PM CDT 05/22/2025 11:39 PM CDT us Leander Mehta MD LAB - CHEMISTRY ORDERABLES Final Result Performing Organization Address [facility]/ZIP Co de Phone Number [address] [address], [place] [phone] * TROPONIN-I HIGH SENSITIVE BASELINE + 1HR (05/22/2025 11:34 PM CDT) Pathologist [facility] Troponin I High Sensitive <3 <=14 ng/L 05/23/2025 12:26 AM CDT [facility] Blood BLOOD SPECIMEN / Unknown Venipuncture / Unknown 05/22/2025 11:34 PM CDT 05/22/2025 11:39 PM CDT us Leander Mehta MD LAB - CHEMISTRY ORDERABLES Final Result Performing Organization Address City/[facility]/ZIP Co de Phone Number [address] [address], [place] [phone] * TYPE + SCREEN PANEL (05/22/2025 11:34 PM CDT) Pathologist [facility] Antibody Screen NEG 12:27 AM CDT [facility] ABO Rh A POS 05/23/2025 12:27 AM CDT [facility] Blood Bank BLOOD SPECIMEN / Unknown Venipuncture / Unknown 05/22/2025 11:34 PM CDT 05/22/2025 11:39 PM CDT Leander Mehta MD LAB - BLOOD BANK ORDERABLES Dulce l Result [facility] [address] [place] [address], [facility] [phone] * PT-INR (05/22/2025 11:34 PM CDT) Pathologist [facility] PT 14.3 12.1 - 14.8 Seconds 05/23/2025 12:16 AM CDT [facility] INR 1.1 See Comment 05/23/2025 12:16 AM CDT [facility] Comment:The suggested therap eutic range for standard coumadin (warfarin) therapy is an INR of 2.0-3.0. For high-risk patients (Mechanical Mitral Valve Prosthesis, etc.), the suggested prophylactic therapeutic range is an INR of 2.5-3.5. Blood BLOOD SPECIMEN / Unknown Venipuncture / Unknown 05/22/2025 11:34 PM CDT 05/22/2025 11:39 PM CDT Leander Mehta MD LAB - COAGULATION ORDERABLES Fin al Result [facility] [address] [place] [address], [place] [phone] * (ABNORMAL) COMPREHENSIVE METABOLIC PANEL (05/22/2025 11:34 PM CDT) Pathologist [facility] BUN 12 7 - 26 mg/dL 05/23/2025 12:22 AM CDT [facility] Creatinine 0.56 0.56 - 0.96 mg/dL 05/23/2025 12:22 AM [facility] Sodium 137 136 - 145 mmol/L 05/23/2025 12:22 AM [facility] Potassium 3.7 3.5 - 4.5 mmol/L 05/23/2025 12:22 AM [facility] Chloride 108(H) 98 - 107 mmol/L 05/23/2025 12:22 AM [facility] CO2 22 22 - 29 mmol/L 05/23/2025 12:22 AM [facility] Glucose 95 70 - 99 mg/dL 05/23/2025 12:22 AM [facility] Calcium 8.9 8.4 - 10.2 mg/dL 05/23/2025 12:22 AM [facility] Protein Total 6.3 6.0 - 8.3 g/dL 05/23/2025 12:22 AM [facility] Albumin 4.6 3.4 - 5.0 g/dL 05/23/2025 12:22 AM [facility] Bilirubin Total 0.6 0.2 - 1.2 mg/dL 05/23/2025 12:22 AM [facility] Alkaline Phosphatase 54 40 - 150 U/L 05/23/2025 12:22 AM [facility] ALT 20 5 - 55 U/L 05/23/2025 12:22 AM [facility] AST 24 5 - 34 U/L 05/23/2025 12:22 AM [facility] Anion Gap 7 6 - 16 05/23/2025 12:22 AM [facility] BUN/Creatinine Ratio 21 7 - 23 05/23/2025 12:22 AM [facility] Osmolality Calculated 284 275 - 295 mOsm/kg 05/23/2025 12:22 AM [facility] Albumin/Globulin Ratio 2.7(H) 1.1 - 2.3 05/23/2025 12:22 AM [facility] eGFR by CKD-EPI >90 >=90 mL/min/1.7 3 m2 05/23/2025 12:22 AM [facility] Comment:Estimated Glomerular Filtration Rate (eGFR) calculated using the CKD-EPI Creatinine Equation (2020), per the National Kid[employer] and [place] [employer]ph[employer] recommendations. Blood BLOOD SPECIMEN / Unknown Venipuncture / Unknown 05/22/2025 11:34 PM CDT 05/22/2025 11:39 PM CDT Leander Mehta MD LAB - CHEMISTRY ORDERABLES Final Result Performing Organization Address [facility] Co de Phone Number [address] [address], [place] [phone] * HCG BETA BLOOD QUANTITATIVE (05/22/2025 11:34 PM CDT) Beta-hCG Total Quantitative <3 mIU/mL 05/23/2025 12:26 AM CDT [facility] Comment: HCG Numeric Result Interpretation: Non- Females: < 5 mIU/mL Post-Menopausal Females: < 7 mIU/mL This assay is cleared for use in the early detection of only. It is not approved for any other uses such as tumor marker screening, tumor marker monitoring, etc. and should not be used for any other purposes. Blood BLOOD SPECIMEN / Unknown Venipuncture / Unknown 05/22/2025 11:34 PM CDT 05/22/2025 11:39 PM CDT Leander Mehta MD LAB - CHEMISTRY ORDERABLES Final Result Performing Organization Address [facility] de Phone Number [address] [address], [place] [phone] from Last 3 Months Insurance MEDICAID - [place] Advance Directives * Full Code (Latest Code Status on File) Date Activated Date Inactivated Comments 05/23/2025 3:56 AM 05/24/2025 7:27 PM Care Teams Game Producer Relationship Specialty Start Date End Date Gregorio Wilson PA [address] [place] [address] PCP - General Physician Labour Market Economist 05/23/25
--- OUTSIDE RECORDS SUMMARY | 2025-07-27 23:09 | XMS_ITS | Clinical Summary ---
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
--- OUTSIDE RECORDS SUMMARY | 2025-07-27 23:09 | XMS_ITS | Continuity of Care Document ---
Author Organization [facility] [address] [place] [address] Care Team Providers Care Social Worker [facility] Services Name Role Phone SAMIR WILSON Primary Care Provider Assessment No assessment recorded. Plan of Treatment Reminders Order Date Submit Date Provider Last Modified By Organization Details Last Modified Time Details Appointments None record ed. Lab None record ed. Referral None record ed. Procedures None record ed. Surgeries None record ed. Imaging None record ed. Medication Orders None record ed. Patient TargetsNo targets recorded. Patient InstructionsNo instructions recorded. Reason for Referral None Reported. Results Created Date Observation Date Name Description Value Unit Range Abnormal Flag Note LastModifiedBy Organization Detail LastModifiedTime 05/23/2005/23/2025 urina lysis panel , auto color, auto, urine Colorl ess text: yellow , straw abnormal Not Available Not Available 05/26/2025 11:45:51 05/23/2005/23/2025 urina lysis panel , auto clarity, refractometr y automated, urine Clear text: clear Not Available Not Available 05/26/2025 11:45:51 05/23/2005/23/2025 urina lysis panel , auto glucose, ql, test strip, urine Normal text: normal Not Available Not Available 05/26/2025 11:45:51 05/23/2005/23/2025 urina lysis panel , auto bilirubin, qualitative, urine (obs) Negati ve text: negati ve Not Available Not Available 05/26/2025 11:45:51 05/23/2005/23/2025 urina lysis panel , auto ketones, ql, automated test strip, urine (obs) 1+ text: negati ve abnormal Not Available Not Available 05/26/2025 11:45:51 05/23/2005/23/2025 urina lysis panel , auto specific gravity, test strip, urine low: 1.005h igh: 1.03 high Speci fic Gravi ty perfo rmed by lokesh barba ctome try. Not Available Not Available 05/26/2025 11:45:51 05/23/2005/23/2025 urina lysis panel , auto hemoglobin, qual, urine Negati ve text: negati ve Not Available Not Available 05/26/2025 11:45:51 05/23/2005/23/2025 urina lysis panel , auto pH, test strip, urine 6.5 low: 5high: 8 Not Available Not Available 05/26/2025 11:45:51 05/23/2005/23/2025 urina lysis panel , auto protein, dipstick, urine Negati ve text: negati ve Not Available Not Available 05/26/2025 11:45:51 05/23/2005/23/2025 urina lysis panel , auto urobilinogen , qn, automated test strip, urine (obs) Normal text: normal mg/dL Not Available Not Available 05/26/2025 11:45:51 05/23/2005/23/2025 urina lysis panel , auto nitrite, ql, test strip, urine (obs) Negati ve text: negati ve Not Available Not Available 05/26/2025 11:45:51 05/23/2005/23/2025 urina lysis panel , auto leukocyte esterase, ql, test strip, urine (obs) Negati ve text: negati ve Not Available Not Available 05/26/2025 11:45:51 05/23/2005/23/2025 urina lysis panel , auto microscopic method, urine Urine micros copy not indica jose antonio Not Available Not Available 11:45:51 05/23/2005/23/2025 urina lysis panel , auto lab interpretati on Abnorm al Not Available Not Available 11:45:51 05/23/2005/23/2025 phosp horus , serum or plasm a phosphorus, serum or plasma 3.4 mg/dL low: 2.9mg/ dLhigh : 5.1mg/ dL Not Available Not Available 05/26/2025 11:45:51 05/23/2005/23/2025 phosp horus , serum or plasm a lab interpretati on Normal Not Available Not Available 04/30 11:45:51 05/23/2005/23/2025 magne sium, serum or plasm a magnesium, serum or plasma 1.7 mg/dL low: 1.6mg/ dLhigh : 2.6mg/ dL Not Available Not Available 05/26/2025 11:45:51 05/23/2005/23/2025 magne sium, serum or plasm a lab interpretati on Normal Not Available Not Available 04/30 11:45:51 05/23/2005/23/2025 CBC w/ auto diff WBC, auto, blood 13.5 text: 4.0 - 10.7 x10e9/ L high Not Available Not Available 05/26/2025 11:45:51 05/23/2005/23/2025 CBC w/ auto diff RBC count, blood 3.69 text: 3.90 - 5.20 x10e12 /L low Not Available Not Available 05/26/2025 11:45:51 05/23/2005/23/2025 CBC w/ auto diff hemoglobin (Hb), blood 11.3 g/dL low: 11.9g/ dLhigh : 15.8g/ dL low Not Available Not Available 05/26/2025 11:45:51 05/23/2005/23/2025 CBC w/ auto diff hematocrit, automated count, blood 31.6 % low: 34.8%h igh: 46.1% low Not Available Not Available 05/26/2025 11:45:51 05/23/2005/23/2025 CBC w/ auto diff MCV, blood 85.6 fL low: 80fLhi gh: 98fL Not Available Not Available 05/26/2025 11:45:51 05/23/2005/23/2025 CBC w/ auto diff MCH, qn, automated (obs) 30.6 pg low: 26.7pg high: 33.6pg Not Available Not Available 05/26/2025 11:45:51 05/23/2005/23/2025 CBC w/ auto diff MCHC, qn, automated (obs) 35.8 g/dL low: 31.7g/ dLhigh : 36.3g/ dL Not Available Not Available 05/26/2025 11:45:51 05/23/2005/23/2025 CBC w/ auto diff erythrocyte distribution width, ratio, automated (obs) 13.7 % low: 11.3%h igh: 14.8% Not Available Not Available 05/26/2025 11:45:51 05/23/2005/23/2025 CBC w/ auto diff platelets, auto, blood 238 text: 150 - 420 x10e9/ L Not Available Not Available 05/26/2025 11:45:51 05/23/2005/23/2025 CBC w/ auto diff platelet mean volume, qn, automated, blood (obs) 10.7 fL low: 7.8fLh igh: 11.4fL Not Available Not Available 05/26/2025 11:45:51 05/23/2005/23/2025 CBC w/ auto diff neutrophils/ 100 leukocytes, automated, blood (obs) 75.1 % low: 41%hig h: 74% high Not Available Not Available 05/26/2025 11:45:51 05/23/2005/23/2025 CBC w/ auto diff lymphocytes/ 100 leukocytes, automated, blood (obs) 15.4 % low: 17%hig h: 47% low Not Available Not Available 05/26/2025 11:45:51 05/23/2005/23/2025 CBC w/ auto diff monocytes/10 0 leukocytes, automated, blood (obs) 8.9 % low: 3%high : 11% Not Available Not Available 05/26/2025 11:45:51 05/23/2005/23/2025 CBC w/ auto diff eosinophils/ 100 leukocytes, automated, blood (obs) 0.1 % low: 0%high : 7% Not Available Not Available 05/26/2025 11:45:51 05/23/2005/23/2025 CBC w/ auto diff basophils/10 0 leukocytes, automated, blood (obs) 0.1 % low: 0%high : 1.6% Not Available Not Available 05/26/2025 11:45:51 05/23/2005/23/2025 CBC w/ auto diff immature granulocytes /100 leukocytes, automated, blood (obs) 0.4 % low: 0%high : 1% Not Available Not Available 05/26/2025 11:45:51 05/23/2005/23/2025 CBC w/ auto diff neutrophil count, absolute (anc), blood (obs) 10.15 text: 1.60 - 7.50 x10e9/ L high Not Available Not Available 05/26/2025 11:45:51 05/23/2005/23/2025 CBC w/ auto diff lymphocytes, quantitative , blood, automated count (obs) 2.08 text: 1.00 - 4.40 x10e9/ L Not Available Not Available 05/26/2025 11:45:51 05/23/2005/23/2025 CBC w/ auto diff monocytes, count, automated, blood (obs) 1.2 text: 0.15 - 1.00 x10e9/ L high Not Available Not Available 05/26/2025 11:45:51 05/23/2005/23/2025 CBC w/ auto diff eosinophils, quant, blood 0.01 text: 0.00 - 0.60 x10e9/ L Not Available Not Available 05/26/2025 11:45:51 05/23/2005/23/2025 CBC w/ auto diff basophils, quant, auto, blood (obs) 0.02 text: 0.00 - 0.13 x10e9/ L Not Available Not Available 05/26/2025 11:45:51 05/23/2005/23/2025 CBC w/ auto diff lab interpretati on Abnorm al Not Available Not Available 11:45:51 05/23/2005/23/2025 BMP, serum or plasm a BUN (blood urea nitrogen), serum or plasma 10 mg/dL low: 7mg/dL high: 26mg/d L Not Available Not Available 05/26/2025 11:45:51 05/23/2005/23/2025 BMP, serum or plasm a creatinine, serum or plasma 0.59 mg/dL low: 0.56mg /dLhig h: 0.96mg /dL Not Available Not Available 05/26/2025 11:45:51 05/23/2005/23/2025 BMP, serum or plasm a sodium, serum or plasma 136 mmol/ L low: 136mmo l/Lhig h: 145mmo l/L Not Available Not Available 05/26/2025 11:45:51 05/23/2005/23/2025 BMP, serum or plasm a potassium, serum or plasma 3.7 mmol/ L low: 3.5mmo l/Lhig h: 4.5mmo l/L Not Available Not Available 05/26/2025 11:45:51 05/23/2005/23/2025 BMP, serum or plasm a chloride, serum or plasma 110 mmol/ L low: 98mmol /Lhigh : 107mmo l/L high Not Available Not Available 05/26/2025 11:45:51 05/23/2005/23/2025 BMP, serum or plasm a CO2, (carbon dioxide), total, serum or plasma 19 mmol/ L low: 22mmol /Lhigh : 29mmol /L low Not Available Not Available 05/26/2025 11:45:51 05/23/2005/23/2025 BMP, serum or plasm a glucose, qn [mass/volume ], serum or plasma 84 mg/dL low: 70mg/d Lhigh: 99mg/d L Not Available Not Available 05/26/2025 11:45:51 05/23/2005/23/2025 BMP, serum or plasm a calcium, qn, serum or plasma 8.1 mg/dL low: 8.4mg/ dLhigh : 10.2mg /dL low Not Available Not Available 05/26/2025 11:45:51 05/23/2005/23/2025 BMP, serum or plasm a anion gap 7 low: 6high: 16 Not Available Not Available 05/26/2025 11:45:51 05/23/2005/23/2025 BMP, serum or plasm a BUN/creatini ne, ratio, serum 17 low: 7high: 23 Not Available Not Available 05/26/2025 11:45:51 05/23/2005/23/2025 BMP, serum or plasm a osmolality calculated 280 text: 275 - 295 mOsm/k g Not Available Not Available 05/26/2025 11:45:51 05/23/2005/23/2025 BMP, serum or plasm a glomerular filtration rate/1.73 sq M predicted, qn, creatinine based formula (CKD-epi 2020), serum or plasma or blood text: >=90 mL/min /1.73 m2 Estim ated Glome rular Filtr ation Rate (eGFR ) calcu lated using the CKD-E PI Creat inine Equat ion (2020 ), per the [place] [facility] and [employer] of Nephr ology recom menda tions . Not Available Not Available 05/26/2025 11:45:51 05/23/2005/23/2025 BMP, serum or plasm a lab interpretati on Abnorm al Not Available Not Available 11:45:51 05/23/2005/23/2025 abo group + rh type, blood ABO group + Rh type, blood A POS Not Available Not Available 04/30 11:45:50 05/23/2005/28/2025 cultu re, blood culture, foreign body No growth day 5 Not Available Not Available 15:18:52 05/23/2005/28/2025 cultu re, blood lab interpretati on Normal Not Available Not Available 05/01 15:18:52 05/23/2005/28/2025 cultu re, blood culture, foreign body No growth day 5 Not Available Not Available 15:18:52 05/23/2005/28/2025 cultu re, blood lab interpretati on Normal Not Available Not Available 05/01 15:18:52 05/23/2005/23/2025 beta- HCG, quant itati ve, serum or plasm a HCG, intact + beta subunit, quant, serum or plasma text: mIU/mL HCG Numer ic Resul t Inter preta tion: Non-P regna nt Femal es: < 5 mIU/m L Post- Menop ausal Femal es: < 7 mIU/m L This assay is clear ed for use in the early detec tion of pregn no only. It is not appro jaiden for any other uses such as tumor marke r scree macie, tumor marke r monit oring , etc. and shoul d not be used for any other purpo ses. Not Available Not Available 05/26/2025 11:45:50 05/23/2005/23/2025 type + scree n, blood antibody screen, serum or plasma NEG Not Available Not Available 04/30 11:45:50 05/23/2005/23/2025 type + scree n, blood ABO group + Rh type, blood A POS Not Available Not Available 04/30 11:45:50 05/23/2005/23/2025 INR, plasm a prothrombin time 14.3 text: 12.1 - 14.8 second s Not Available Not Available 05/26/2025 11:45:50 05/23/2005/23/2025 INR, plasm a INR, plasma 1.1 text: see commen t The sugge sted thera peuti c range for stand bogdan couma din (warf rob) thera py is an INR of 2.0-3 .0. For high- risk patie nts (Mech saran l Rosi l Valve Prost hesis , etc.) , the sugge sted proph ylact ic thera peuti c range is an INR of 2.5-3 .5. Not Available Not Available 05/26/2025 11:45:50 05/23/2005/23/2025 INR, plasm a lab interpretati on Normal Not Available Not Available 04/30 11:45:50 05/23/2005/23/2025 lacta te, QN [mole s/vol ume], blood lactic acid, serum or plasma 1.6 mmol/ L high: 2mmol/ L Not Available Not Available 05/26/2025 11:45:50 05/23/2005/23/2025 lacta te, QN [mole s/vol ume], blood lab interpretati on Normal Not Available Not Available 04/30 11:45:50 05/23/2005/23/2025 CMP, serum or plasm a BUN (blood urea nitrogen), serum or plasma 12 mg/dL low: 7mg/dL high: 26mg/d L Not Available Not Available 05/26/2025 11:45:50 05/23/2005/23/2025 CMP, serum or plasm a creatinine, serum or plasma 0.56 mg/dL low: 0.56mg /dLhig h: 0.96mg /dL Not Available Not Available 05/26/2025 11:45:50 05/23/2005/23/2025 CMP, serum or plasm a sodium, serum or plasma 137 mmol/ L low: 136mmo l/Lhig h: 145mmo l/L Not Available Not Available 05/26/2025 11:45:50 05/23/2005/23/2025 CMP, serum or plasm a potassium, serum or plasma 3.7 mmol/ L low: 3.5mmo l/Lhig h: 4.5mmo l/L Not Available Not Available 05/26/2025 11:45:50 05/23/2005/23/2025 CMP, serum or plasm a chloride, serum or plasma 108 mmol/ L low: 98mmol /Lhigh : 107mmo l/L high Not Available Not Available 05/26/2025 11:45:50 05/23/2005/23/2025 CMP, serum or plasm a CO2, (carbon dioxide), total, serum or plasma 22 mmol/ L low: 22mmol /Lhigh : 29mmol /L Not Available Not Available 05/26/2025 11:45:50 05/23/2005/23/2025 CMP, serum or plasm a glucose, qn [mass/volume ], serum or plasma 95 mg/dL low: 70mg/d Lhigh: 99mg/d L Not Available Not Available 05/26/2025 11:45:50 05/23/2005/23/2025 CMP, serum or plasm a calcium, qn, serum or plasma 8.9 mg/dL low: 8.4mg/ dLhigh : 10.2mg /dL Not Available Not Available 05/26/2025 11:45:50 05/23/2005/23/2025 CMP, serum or plasm a protein, total, serum 6.3 g/dL low: 6g/dLh igh: 8.3g/d L Not Available Not Available 05/26/2025 11:45:50 05/23/2005/23/2025 CMP, serum or plasm a albumin, qn, bcg dye, serum or plasma 4.6 g/dL low: 3.4g/d Lhigh: 5g/dL Not Available Not Available 05/26/2025 11:45:50 05/23/2005/23/2025 CMP, serum or plasm a bilirubin, total, serum or plasma 0.6 mg/dL low: 0.2mg/ dLhigh : 1.2mg/ dL Not Available Not Available 05/26/2025 11:45:50 05/23/2005/23/2025 CMP, serum or plasm a alkaline phosphatase, serum or plasma 54 U/L low: 40U/Lh igh: 150U/L Not Available Not Available 05/26/2025 11:45:50 05/23/2005/23/2025 CMP, serum or plasm a alanine aminotransfe rase, qn, no addition of P-5'-P, serum or plasma 20 U/L low: 5U/Lhi gh: 55U/L Not Available Not Available 05/26/2025 11:45:50 05/23/2005/23/2025 CMP, serum or plasm a AST/SGOT (aspartate aminotransfe rase), serum or plasma 24 U/L low: 5U/Lhi gh: 34U/L Not Available Not Available 05/26/2025 11:45:50 05/23/2005/23/2025 CMP, serum or plasm a anion gap 7 low: 6high: 16 Not Available Not Available 05/26/2025 11:45:50 05/23/2005/23/2025 CMP, serum or plasm a BUN/creatini ne, ratio, serum 21 low: 7high: 23 Not Available Not Available 05/26/2025 11:45:50 05/23/2005/23/2025 CMP, serum or plasm a osmolality calculated 284 text: 275 - 295 mOsm/k g Not Available Not Available 05/26/2025 11:45:50 05/23/2005/23/2025 CMP, serum or plasm a albumin/glob ulin ratio 2.7 low: 1.1hig h: 2.3 high Not Available Not Available 05/26/2025 11:45:50 05/23/2005/23/2025 CMP, serum or plasm a glomerular filtration rate/1.73 sq M predicted, qn, creatinine based formula (CKD-epi 2020), serum or plasma or blood text: >=90 mL/min /1.73 m2 Estim ated Glome rular Filtr ation Rate (eGFR ) calcu lated using the CKD-E PI Creat inine Equat ion (2020 ), per the [facility] and Amer[facility] can Soc[facility] ty of Nephr ology recom menda tions . Not Available Not Available 05/26/2025 11:45:50 05/23/2005/23/2025 CMP, serum or plasm a lab interpretati on Abnorm al Not Available Not Available 11:45:50 05/23/2005/23/2025 CBC w/ auto diff WBC, auto, blood 13 text: 4.0 - 10.7 x10e9/ L high Not Available Not Available 05/26/2025 11:45:50 05/23/2005/23/2025 CBC w/ auto diff RBC count, blood 3.98 text: 3.90 - 5.20 x10e12 /L Not Available Not Available 05/26/2025 11:45:50 05/23/2005/23/2025 CBC w/ auto diff hemoglobin (Hb), blood 12.2 g/dL low: 11.9g/ dLhigh : 15.8g/ dL Not Available Not Available 05/26/2025 11:45:50 05/23/2005/23/2025 CBC w/ auto diff hematocrit, automated count, blood 34 % low: 34.8%h igh: 46.1% low Not Available Not Available 05/26/2025 11:45:50 05/23/2005/23/2025 CBC w/ auto diff MCV, blood 85.4 fL low: 80fLhi gh: 98fL Not Available Not Available 05/26/2025 11:45:50 05/23/2005/23/2025 CBC w/ auto diff MCH, qn, automated (obs) 30.7 pg low: 26.7pg high: 33.6pg Not Available Not Available 05/26/2025 11:45:50 05/23/2005/23/2025 CBC w/ auto diff MCHC, qn, automated (obs) 35.9 g/dL low: 31.7g/ dLhigh : 36.3g/ dL Not Available Not Available 05/26/2025 11:45:50 05/23/2005/23/2025 CBC w/ auto diff erythrocyte distribution width, ratio, automated (obs) 13.7 % low: 11.3%h igh: 14.8% Not Available Not Available 05/26/2025 11:45:50 05/23/2005/23/2025 CBC w/ auto diff platelets, auto, blood 266 text: 150 - 420 x10e9/ L Not Available Not Available 05/26/2025 11:45:50 05/23/2005/23/2025 CBC w/ auto diff platelet mean volume, qn, automated, blood (obs) 10.8 fL low: 7.8fLh igh: 11.4fL Not Available Not Available 05/26/2025 11:45:50 05/23/2005/23/2025 CBC w/ auto diff neutrophils/ 100 leukocytes, automated, blood (obs) 89.2 % low: 41%hig h: 74% high Not Available Not Available 05/26/2025 11:45:50 05/23/2005/23/2025 CBC w/ auto diff lymphocytes/ 100 leukocytes, automated, blood (obs) 7.4 % low: 17%hig h: 47% low Not Available Not Available 05/26/2025 11:45:50 05/23/2005/23/2025 CBC w/ auto diff monocytes/10 0 leukocytes, automated, blood (obs) 3 % low: 3%high : 11% Not Available Not Available 05/26/2025 11:45:50 05/23/2005/23/2025 CBC w/ auto diff eosinophils/ 100 leukocytes, automated, blood (obs) 0 % low: 0%high : 7% Not Available Not Available 05/26/2025 11:45:50 05/23/2005/23/2025 CBC w/ auto diff basophils/10 0 leukocytes, automated, blood (obs) 0.1 % low: 0%high : 1.6% Not Available Not Available 05/26/2025 11:45:50 05/23/2005/23/2025 CBC w/ auto diff immature granulocytes /100 leukocytes, automated, blood (obs) 0.3 % low: 0%high : 1% Not Available Not Available 05/26/2025 11:45:50 05/23/2005/23/2025 CBC w/ auto diff neutrophil count, absolute (anc), blood (obs) 11.62 text: 1.60 - 7.50 x10e9/ L high Not Available Not Available 05/26/2025 11:45:50 05/23/2005/23/2025 CBC w/ auto diff lymphocytes, quantitative , blood, automated count (obs) 0.96 text: 1.00 - 4.40 x10e9/ L low Not Available Not Available 05/26/2025 11:45:50 05/23/2005/23/2025 CBC w/ auto diff monocytes, count, automated, blood (obs) 0.39 text: 0.15 - 1.00 x10e9/ L Not Available Not Available 05/26/2025 11:45:50 05/23/2005/23/2025 CBC w/ auto diff eosinophils, quant, blood 0 text: 0.00 - 0.60 x10e9/ L Not Available Not Available 05/26/2025 11:45:50 05/23/2005/23/2025 CBC w/ auto diff basophils, quant, auto, blood (obs) 0.01 text: 0.00 - 0.13 x10e9/ L Not Available Not Available 05/26/2025 11:45:50 05/23/2005/23/2025 CBC w/ auto diff lab interpretati on Abnorm al Not Available Not Available 11:45:50 05/24/2005/24/2025 phosp horus , serum or plasm a phosphorus, serum or plasma 2.2 mg/dL low: 2.9mg/ dLhigh : 5.1mg/ dL low Not Available Not Available 05/26/2025 11:45:52 05/24/2005/24/2025 phosp horus , serum or plasm a lab interpretati on Abnorm al Not Available Not Available 11:45:52 05/24/2005/24/2025 magne sium, serum or plasm a magnesium, serum or plasma 1.9 mg/dL low: 1.6mg/ dLhigh : 2.6mg/ dL Not Available Not Available 05/26/2025 11:45:51 05/24/2005/24/2025 magne sium, serum or plasm a lab interpretati on Normal Not Available Not Available 04/30 11:45:51 05/24/2005/24/2025 CBC w/ auto diff WBC, auto, blood 6.3 text: 4.0 - 10.7 x10e9/ L Not Available Not Available 05/26/2025 11:45:51 05/24/2005/24/2025 CBC w/ auto diff RBC count, blood 3.57 text: 3.90 - 5.20 x10e12 /L low Not Available Not Available 05/26/2025 11:45:51 05/24/2005/24/2025 CBC w/ auto diff hemoglobin (Hb), blood 10.8 g/dL low: 11.9g/ dLhigh : 15.8g/ dL low Not Available Not Available 05/26/2025 11:45:51 05/24/2005/24/2025 CBC w/ auto diff hematocrit, automated count, blood 30.6 % low: 34.8%h igh: 46.1% low Not Available Not Available 05/26/2025 11:45:51 05/24/2005/24/2025 CBC w/ auto diff MCV, blood 85.7 fL low: 80fLhi gh: 98fL Not Available Not Available 05/26/2025 11:45:51 05/24/2005/24/2025 CBC w/ auto diff MCH, qn, automated (obs) 30.3 pg low: 26.7pg high: 33.6pg Not Available Not Available 05/26/2025 11:45:51 05/24/2005/24/2025 CBC w/ auto diff MCHC, qn, automated (obs) 35.3 g/dL low: 31.7g/ dLhigh : 36.3g/ dL Not Available Not Available 05/26/2025 11:45:51 05/24/2005/24/2025 CBC w/ auto diff erythrocyte distribution width, ratio, automated (obs) 13.7 % low: 11.3%h igh: 14.8% Not Available Not Available 05/26/2025 11:45:51 05/24/2005/24/2025 CBC w/ auto diff platelets, auto, blood 189 text: 150 - 420 x10e9/ L Not Available Not Available 05/26/2025 11:45:51 05/24/2005/24/2025 CBC w/ auto diff platelet mean volume, qn, automated, blood (obs) 10.9 fL low: 7.8fLh igh: 11.4fL Not Available Not Available 05/26/2025 11:45:51 05/24/2005/24/2025 CBC w/ auto diff neutrophils/ 100 leukocytes, automated, blood (obs) 48 % low: 41%hig h: 74% Not Available Not Available 05/26/2025 11:45:51 05/24/2005/24/2025 CBC w/ auto diff lymphocytes/ 100 leukocytes, automated, blood (obs) 43 % low: 17%hig h: 47% Not Available Not Available 05/26/2025 11:45:51 05/24/2005/24/2025 CBC w/ auto diff monocytes/10 0 leukocytes, automated, blood (obs) 7.7 % low: 3%high : 11% Not Available Not Available 05/26/2025 11:45:51 05/24/2005/24/2025 CBC w/ auto diff eosinophils/ 100 leukocytes, automated, blood (obs) 0.8 % low: 0%high : 7% Not Available Not Available 05/26/2025 11:45:51 05/24/2005/24/2025 CBC w/ auto diff basophils/10 0 leukocytes, automated, blood (obs) 0.3 % low: 0%high : 1.6% Not Available Not Available 05/26/2025 11:45:51 05/24/2005/24/2025 CBC w/ auto diff immature granulocytes /100 leukocytes, automated, blood (obs) 0.2 % low: 0%high : 1% Not Available Not Available 05/26/2025 11:45:51 05/24/2005/24/2025 CBC w/ auto diff neutrophil count, absolute (anc), blood (obs) 3.01 text: 1.60 - 7.50 x10e9/ L Not Available Not Available 05/26/2025 11:45:51 05/24/2005/24/2025 CBC w/ auto diff lymphocytes, quantitative , blood, automated count (obs) 2.69 text: 1.00 - 4.40 x10e9/ L Not Available Not Available 05/26/2025 11:45:51 05/24/2005/24/2025 CBC w/ auto diff monocytes, count, automated, blood (obs) 0.48 text: 0.15 - 1.00 x10e9/ L Not Available Not Available 05/26/2025 11:45:51 05/24/2005/24/2025 CBC w/ auto diff eosinophils, quant, blood 0.05 text: 0.00 - 0.60 x10e9/ L Not Available Not Available 05/26/2025 11:45:51 05/24/2005/24/2025 CBC w/ auto diff basophils, quant, auto, blood (obs) 0.02 text: 0.00 - 0.13 x10e9/ L Not Available Not Available 05/26/2025 11:45:51 05/24/2005/24/2025 CBC w/ auto diff lab interpretati on Abnorm al Not Available Not Available 11:45:51 05/24/2005/24/2025 BMP, serum or plasm a BUN (blood urea nitrogen), serum or plasma 6 mg/dL low: 7mg/dL high: 26mg/d L low Not Available Not Available 05/26/2025 11:45:51 05/24/2005/24/2025 BMP, serum or plasm a creatinine, serum or plasma 0.58 mg/dL low: 0.56mg /dLhig h: 0.96mg /dL Not Available Not Available 05/26/2025 11:45:51 05/24/2005/24/2025 BMP, serum or plasm a sodium, serum or plasma 138 mmol/ L low: 136mmo l/Lhig h: 145mmo l/L Not Available Not Available 05/26/2025 11:45:51 05/24/2005/24/2025 BMP, serum or plasm a potassium, serum or plasma 3.3 mmol/ L low: 3.5mmo l/Lhig h: 4.5mmo l/L low Not Available Not Available 05/26/2025 11:45:51 05/24/2005/24/2025 BMP, serum or plasm a chloride, serum or plasma 114 mmol/ L low: 98mmol /Lhigh : 107mmo l/L high Not Available Not Available 05/26/2025 11:45:51 05/24/2005/24/2025 BMP, serum or plasm a CO2, (carbon dioxide), total, serum or plasma 22 mmol/ L low: 22mmol /Lhigh : 29mmol /L Not Available Not Available 05/26/2025 11:45:51 05/24/2005/24/2025 BMP, serum or plasm a glucose, qn [mass/volume ], serum or plasma 75 mg/dL low: 70mg/d Lhigh: 99mg/d L Not Available Not Available 05/26/2025 11:45:51 05/24/2005/24/2025 BMP, serum or plasm a calcium, qn, serum or plasma 8.2 mg/dL low: 8.4mg/ dLhigh : 10.2mg /dL low Not Available Not Available 05/26/2025 11:45:51 05/24/2005/24/2025 BMP, serum or plasm a anion gap 2 low: 6high: 16 low Not Available Not Available 05/26/2025 11:45:51 05/24/2005/24/2025 BMP, serum or plasm a BUN/creatini ne, ratio, serum 10 low: 7high: 23 Not Available Not Available 05/26/2025 11:45:51 05/24/2005/24/2025 BMP, serum or plasm a osmolality calculated 282 text: 275 - 295 mOsm/k g Not Available Not Available 05/26/2025 11:45:51 05/24/20 25 05/24/2025 BMP, serum or plasm a glomerular filtration rate/1.73 sq M predicted, qn, creatinine based formula (CKD-epi 2020), serum or plasma or blood text: >=90 mL/min /1.73 m2 Estim ated Glome rular Filtr ation Rate (eGFR ) calcu lated using the CKD-E PI Creat inine Equat ion (2020 ), per the Natio n[facility] ation and Anastasiia gaspar Socie ty of Nephr ology recom menda tions . Not Available Not Available 05/26/2025 11:45:51 05/24/2005/24/2025 BMP, serum or plasm a lab interpretati on Abnorm al Not Available Not Available 11:45:51 05/22/2005/22/2025 CT, abdom en + pelvi s, w/ contr ast No observ ation record ed. [facility] [place] [address] [place], [address], 05/25/2025 09:17:52 Result Notes None recorded. Problems No Known Problems Procedures Surgical History Date Name Laterality Status Provider Name and Address Organization Details Recorded Time 12/29/19 22 colonoscopy completed Nidhi Bermeo [facility] 03/09/2022 11:27:48 02/28/20 21 Appendectomy completed Nidhi Bermeo [place] [facility] 03/09/2022 11:27:28 tonsilectomy/jagjit noids completed Teresita Burch [facility] 06/30/2021 14:12:12 Imaging Results None recorded. [...] BY TOPICAL ROUTE 2 TIMES PER DAY 05/27 completed Not Available Not Available Not Available [...] Not Available Not Available No t Available ondansetron 4 mg disintegrat ing tablet Place 2 tablets twice a day by transling ual route. active Not Available Not Available No t [...] Body height Body mass index (BMI) Body weight Oxygen saturation Heart rate Systolic And Diastolic Provider Name and Address Organization Details Last Updated DateTime 5 157.48 cm 23.6 kg/m2 61084.4 2 g 98 % 93 /min 110/62 mm[Hg] JESUS Alfaro [place] [facility] 15:17:02 Social History Question Answer Notes LastModified by Organizat ion Details LastModified Time Tobacco Smoking Status Current Every Day Smoker Vapes daily, nicottine . Connie christianson, [place] - [facility] 08/27/2024 14:57:26 Are You Blind Or [...] Date Of Your Most Recent Tobacco Screening? 06/23/2025 Information not available 06/23/2025 What Is Your Relationship Status? Single Information [...] What Date Was Tobacco Cessation Counseling Provided? 06/23/2025 Information not available 06/23/2025 How Many Years Have You Used E-cigarettes [...] 06/30/2021 What is your exercise level? None [email or web address] Information not available 10/23/2023 Mental Status Question Answer Note LastModified by Organization D etails LastModified Time Do you feel stressed (tense, restless, nervous, or anxious, or unable to sleep at night)? [id number] [email or web address] Information not available 09/21/2022 Family History [...] Problems N Kidney or Bladder Problems N Depression N COPD N Blood Clots N GI Problems N Skin Problems N Eating Disorder N Anemia N Heart Attack (AR) N Diabetes N Anxiety Disorder N Muscle, Joint, or Bone Problems N Seizures/Epilepsy N Acid Reflux (GERD) N Cancer N Stroke N Allergies N Asthma N ADHD N Substance Abuse N High Cholesterol N Hepatitis N Liver Disease N Schizophrenia N Headaches N Osteoporosis N Heart Failure N Gynecological History Statement/Question Response Date of LMP 05/26/2025 On BCP's at Conception? N Menses Monthly No Date of Last Pap Smear Duration of Flow (days) 3 Age at Menarche 11 Current Control Method None LMP Definite Obstetrics History GPAL:G 1 P 0 0 1 0 Type Value Induced 1 Total 1 Immunizations Vaccine Type Date Status Note Provider Nam e and Address Organization Details Recorded Time DTaP 5 completed Not Available [facility] 06/02/2023 23:50:56 DTaP 5 completed Not Available [facility] 06/02/2023 23:50:56 DTaP 6 completed Not Available [facility] 06/02/2023 23:50:56 Hib (PRP-OMP) 4 completed Not Available [facility] 08/03/2023 14:01:56 Hib (PRP-OMP) 5 completed Not Available [facility] 08/03/2023 14:01:56 Hib (PRP-OMP) 5 completed Not Available [facility] 08/03/2023 14:01:56 Hep B, adolescent or pediatric 4 completed Not Available [facility] 06/02/2023 23:50:56 Hep B, adolescent or pediatric 4 completed Not Available [facility] 08/03/2023 14:01:56 Hep B, adolescent or pediatric 5 completed Not Available [facility] 08/03/2023 14:01:56 Hep B, adolescent or pediatric 5 completed Not Available [facility] 08/03/2023 14:01:56 HPV9 6 completed Not Available [facility] 06/02/2023 23:50:55 HPV9 6 completed Not Available [facility] 06/02/2023 23:50:55 HPV9 6 completed Not Available [facility] 06/02/2023 23:50:55 influenza, intradermal, quadrivalent, preservative free 0 completed Not Available [facility] 06/02/2023 23:50:55 influenza, intradermal, quadrivalent, preservative free 6 completed Not Available [facility] 08/03/2023 14:01:56 influenza, intradermal, quadrivalent, preservative free 7 completed Not Available [facility] 08/03/2023 14:01:56 influenza, intradermal, quadrivalent, preservative free 8 completed Not Available [facility] 08/03/2023 14:01:56 influenza, intradermal, quadrivalent, preservative free 9 completed Not Available [facility] 08/03/2023 14:01:56 MMR 5 completed Not Available [facility] 06/02/2023 23:50:55 MMR 9 completed Not Available [facility] 06/02/2023 23:50:55 meningococcal MCV4P 6 completed Not Available [facility] 06/02/2023 23:50:56 pneumococcal conjugate PCV 7 4 completed Not Available [facility] 06/02/2023 23:50:55 pneumococcal conjugate PCV 7 5 completed Not Available [facility] 06/02/2023 23:50:55 pneumococcal conjugate PCV 7 5 completed Not Available [facility] 06/02/2023 23:50:55 pneumococcal conjugate PCV 7 5 completed Not Available [facility] 06/02/2023 23:50:55 IPV 4 completed Not Available [facility] 06/02/2023 23:50:55 IPV 5 completed Not Available [facility] 06/02/2023 23:50:55 IPV 5 completed Not Available [facility] 06/02/2023 23:50:55 IPV 9 completed Not Available [facility] 06/02/2023 23:50:55 Tdap 6 completed Not Available [facility] 06/02/2023 23:50:56 varicella 6 completed Not Available [facility] 06/02/2023 23:50:56 varicella 9 completed Not Available [facility] 06/02/2023 23:50:56 meningococcal B, OMV 2 completed Not Available [facility] 06/02/2023 23:50:55 influenza, split (incl. purified surface antigen) 0 completed Not Available [facility] 08/03/2023 14:01:56 Influenza, split virus, quadrivalent, PF 6 completed Not Available [facility] 06/02/2023 23:50:56 DTaP 4 completed Not Available [facility] 06/02/2023 23:50:56 Hib-Hep B 5 completed Not Available [facility] 06/02/2023 23:50:55 Influenza, split virus, quadrivalent, PF 7 completed Not Available [facility] 06/02/2023 23:50:56 Hib-Hep B 5 completed Not Available [facility] 06/02/2023 23:50:55 Meningococcal MCV4O 2 completed Not Available [facility] 06/02/2023 23:50:56 meningococcal B, OMV 2 completed Not Available [facility] 06/02/2023 23:50:55 Influenza, split virus, quadrivalent, PF 8 completed Not Available [facility] 06/02/2023 23:50:56 Influenza, split virus, quadrivalent, PF 9 completed Not Available [facility] 06/02/2023 23:50:56 Hib-Hep B 4 completed Not Available [facility] 06/02/2023 23:50:55 Past Encounters Encounter ID Performer Location Encounter Start Date Encounter Closed Date Diagnosis/Indication Diagnosis SNOMED-CT Code Diagnosis ICD10 Code Diagnosis IMO Codes Diagnosis Note [id number] TANISHA Dow [address] [place] [address] 05/27/2025 12:07:22 05/29/2025 13:40:49 Laceration of esophagus 654640674 K22.6 [id number] Normal weight 89285426 Z 68.23 [id number] Samir Wilson PA-C [facility] [address] [place] [address] 06/10/2025 15:10:48 06/12/2025 14:18:53 Mucosal tear of esophagus 733432491 K22.89 7353529206 Body mass index 20-24 - normal 858038430 Z68.23 [id number] Health Concerns Section Related Observation LastModified by Organization Detai ls LastModified Time None Recorded Concern Status LastModified by Organization Details LastModified Time None Recorded Payers Encounter Date Sequence Insurance Name Policy Number Policy Gibson Covered Member ID Gibson Member ID Guarantor Name 06/10/2025 1 *SELF PAY* An valeri Dequasie Notes Date Note Type Note Provider Name and Address Organization Details Recorded Time 06/10/2025 text/html ROS as noted in the HPI needs more [place] paperwork..es ophageal tear.. Samir Wilson PA-C Attn: Accounting,[address] [place], [address], [facility] 06/10/2025 15:28:57 OBGyn Episode No OBEpisode recorded.
--- OUTSIDE RECORDS SUMMARY | 2025-07-27 23:09 | XMS_ITS | Clinical Summary ---
Author Organization [facility] Address Formerly [facility] [place] [address] Care Team Providers Care Director Microbiology Name Role Phone Pippa Cheek MD Primary Care Provider [phone] Allergies No known active allergies Medications HYDROcodone-acet aminophen (NORCO) 5-325 MG tablet Take 1 tablet by mouth every 6 (six) hours as needed for Pain. 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
--- OUTSIDE RECORDS SUMMARY | 2025-07-27 23:09 | XMS_ITS | Clinical Summary ---
Author Organization [facility] Address [address], [address] [address] Phone Care Team Providers Care Theater Company Producer Name Role Phone Gregorio Wilson Primary Care Provider [phone] Robbie Mandel MD Unavailable Allergies No known [...] on file Legal Sex Female 9:48 AM THERAPIST RESPIRATORY Gender Identity Not on file Sexual Orientation Not on file Last Filed Vital Signs Vital Sign Reading Time Taken Comments Blood Pressure 132/62 10/05/2021 1:32 PM THERAPIST RESPIRATORY Pulse 67 10/05/2021 1:32 PM THERAPIST RESPIRATORY Temperature 35.8 C (96.4 F) 10/05/2021 1:32 PM THERAPIST RESPIRATORY Respiratory Rate - - Oxygen Saturation 98% 10/05/2021 1:32 PM THERAPIST RESPIRATORY Inhaled Oxygen Concentration - - Weight 54.4 kg (120 lb) 10/05/2021 1:32 PM THERAPIST RESPIRATORY Height 157.5 cm (5' 2) 10/05/2021 1:32 PM THERAPIST RESPIRATORY Body Mass Index 21.95 10/05/2021 1:32 PM THERAPIST RESPIRATORY Plan of Treatment Health Maintenance Due Date Last Done Comments Hepatitis C Virus (HCV) Screening 2004 Meningococcal B Immunization (1 of 2 - Standard) 2020 Influenza Immunization (#1) 03/30/202505/31, 05/30/2018, 07/04/2017, Additional history exists SARS-COV-2 Immunization ( - 2024- season) 2025 Respiratory Syncytial Virus (RSV) Immunization [...] 2004, 2004, Additional history exists Varicella Immunization Completed 12/05/2018, 2005 Rotavirus Immunization Aged Out No lo nger eligible based on patient's age to complete this topic Insurance MEDICAID AETNA [facility] MEDICAID A[employer] Care Teams Theater Company Producer Relationship Specialty Start Date End Date Gregorio Wilson PAC [address] [place] [address] PCP - General Physician Vmware Systems Administrator 10/05/21 Robbie Mandel MD [address] [address] Consulting Physician Colon and Rectal Surgery 10/05/21
--- OUTSIDE RECORDS SUMMARY | 2025-07-27 23:09 | XMS_ITS | Continuity of Care Document ---
Author Organization [facility] Address [address] [place] [address] Care Team Providers Care Right Of Way Manager Name Role Phone SAMIR WILSON Primary Care Provider [phone] Assessment No assessment recorded. Plan of Treatment [...] (2020 ), per the [place] [facility] [facility] and Anastasiia gaspar Socie ty of [...] g Not Available Not Available 05/26/2025 11:45:51 05/24/2005/24/2025 BMP, serum or plasm a glomerular filtration rate/1.73 sq M predicted, qn, creatinine based formula (CKD-epi 2020), serum or plasma or blood text: >=90 mL/min /1.73 m2 Estim ated Glome rular Filtr ation Rate (eGFR ) calcu lated using the CKD-E PI Creat inine Equat ion (2020 ), per the [place] at[place]ren and Anastasiia Masseye ty of Nephr ology recom menda tions . Not Available Not Available 05/26/2025 11:45:51 05/24/2005/24/2025 BMP, serum or plasm a lab interpretati on Abnorm al Not Available Not Available 11:45:51 Result Notes None recorded. Problems No Known Problems Procedures Surgical History Date Name Laterality Status Provider Name and Address Organization Details Recorded Time 12/29/19 22 colonoscopy completed Nidhi Bermeo [facility] 03/09/2022 11:27:48 02/28/20 21 Appendectomy completed Nidhi Bermeo [facility] 03/09/2022 11:27:28 tonsilectomy/jagjit noids completed Teresita Burch [facility] 06/30/2021 14:12:12 Imaging Results None recorded. [...] and Address Organization Details Last Updated DateTime 157.48 cm 22.3 kg/m2 19493.2 7 g 98 % 94 /min 102/62 mm[Hg] JESUS Alfaro [place] [facility] 14:08:23 Social History Question Answer Notes LastModified by [employer] ion Details LastModified Time Tobacco Smoking Status Current Every Day Smoker Vapes daily, nicottine . Connie christianson, [place] [facility] 08/27/2024 14:57:26 Are You Blind Or Do [...] available 06/30/2021 Are You Sexually Active? Yes [email or web address] Information not available 12/28/2022 Do You Have [...] anxious, or unable to sleep at night)? [id number] [email or web address] Information not available 09/21/2022 Family History [...] Eating Disorder N Anemia N Heart Attack (MS) N Diabetes N Anxiety Disorder N Muscle, [...] adolescent or pediatric 5 completed Not Available Counts include 234 beds at the [facility] 08/03/2023 14:01:56 Hep B, adolescent or pediatric 5 completed Not Available Counts include 234 beds at the [facility] 08/03/2023 14:01:56 HPV9 6 completed Not Available [facility] 06/02/2023 23:50:55 HPV9 6 completed Not Available [facility] 06/02/2023 23:50:55 HPV9 6 completed Not Available Counts include 234 beds at the [facility] 06/02/2023 23:50:55 influenza, intradermal, quadrivalent, preservative free 0 completed Not Available Counts include 234 beds at the [facility] 06/02/2023 23:50:55 influenza, intradermal, quadrivalent, preservative free 6 completed Not Available Counts include 234 beds at the [facility] 08/03/2023 14:01:56 influenza, intradermal, quadrivalent, preservative free 7 completed Not Available Counts include 234 beds at the [facility] 08/03/2023 14:01:56 influenza, intradermal, quadrivalent, preservative free 8 completed Not Available Counts include 234 beds at the [facility] 08/03/2023 14:01:56 influenza, intradermal, quadrivalent, preservative free 9 completed Not Available Counts include 234 beds at the [facility] 08/03/2023 14:01:56 MMR 5 completed Not Available Counts include 234 beds at the [facility] 06/02/2023 23:50:55 MMR 9 completed Not Available Counts include 234 beds at the [facility] 06/02/2023 23:50:55 meningococcal MCV4P 6 completed Not Available Counts include 234 beds at the [facility] 06/02/2023 23:50:56 pneumococcal conjugate PCV 7 4 completed Not Available [facility] 06/02/2023 23:50:55 pneumococcal conjugate PCV 7 5 completed Not Available [facility] 06/02/2023 23:50:55 pneumococcal conjugate PCV 7 5 completed Not Available [facility] 06/02/2023 23:50:55 pneumococcal conjugate PCV 7 5 completed Not Available [facility] 06/02/2023 23:50:55 IPV 4 completed Not Available [facility] 06/02/2023 23:50:55 IPV 5 completed Not Available [facility] 06/02/2023 23:50:55 IPV 5 completed Not Available [facility] 06/02/2023 23:50:55 IPV 9 completed Not Available [facility] 06/02/2023 23:50:55 Tdap 6 completed Not Available Counts include 234 beds at the [facility] 06/02/2023 23:50:56 varicella 6 completed Not Available Counts include 234 beds at the [facility] 06/02/2023 23:50:56 varicella 9 completed Not Available Counts include 234 beds at the [facility] 06/02/2023 23:50:56 meningococcal B, OMV 2 completed Not Available Counts include 234 beds at the [facility] 06/02/2023 23:50:55 influenza, split (incl. purified surface antigen) 0 completed Not Available Counts include 234 beds at the [facility] 08/03/2023 14:01:56 Influenza, split virus, quadrivalent, PF 6 completed Not Available Counts include 234 beds at the [facility] 06/02/2023 23:50:56 DTaP 4 completed Not Available Counts include 234 beds at the [facility] 06/02/2023 23:50:56 Hib-Hep B 5 completed Not Available Counts include 234 beds at the [facility] 06/02/2023 23:50:55 Influenza, split virus, quadrivalent, PF 7 completed Not Available Counts include 234 beds at the [facility] 06/02/2023 23:50:56 Hib-Hep B 5 completed Not Available [facility] 06/02/2023 23:50:55 Meningococcal MCV4O 2 completed Not Available [facility] 06/02/2023 23:50:56 meningococcal B, OMV 2 completed Not Available [facility] 06/02/2023 23:50:55 Influenza, split virus, quadrivalent, PF 8 completed Not Available [facility] 06/02/2023 23:50:56 Influenza, split virus, quadrivalent, PF 9 completed Not Available [facility] 06/02/2023 23:50:56 Hib-Hep B 12/08/200 4 completed Not Available [facility] 06/02/2023 23:50:55 Past Encounters Encounter ID Performer Location Encounter Start Date Encounter Closed Date Diagnosis/Indication Diagnosis SNOMED-CT Code Diagnosis ICD10 Code Diagnosis IMO Codes Diagnosis Note [id number] TANISHA Dow [facility] [address] [place] [address] 05/27/2025 12:07:22 05/29/2025 13:40:49 Laceration of esophagus 085026289 K22.6 [id number] Normal weight 43940018 Z 68.23 [id number] [facility] [address] [place] [address] 06/10/2025 15:10:48 06/12/2025 14:18:53 Mucosal tear of esophagus 191120146 K22.89 [id number] Body mass index 20-24 - normal 919604066 Z68.23 [id number] Abdias Buckley MD [facility] [address] [place] [address] 06/23/2025 14:02:29 06/26/2025 15:53:00 Mucosal tear of esophagus 573209905 K22.89 [id number] Normal weight 74813224 Z 68.22 [id number] Health Concerns Section Related Observation LastModified by Organization Detai ls LastModified Time None Recorded Concern Status LastModified by Organization Details LastModified Time None Recorded Payers Encounter Date Sequence Insurance Name Policy Number Policy Gibson Covered Member ID Gibson Member ID Guarantor Name 06/23/2025 1 *SELF PAY* An valeri Dequasie Notes Date Note Type Note Provider Name and Address Organization Details Recorded Time 06/23/2025 text/html ROS as noted in the HPI follow up for release to return to work Samir Wilson PA-C Attn: Accounting,[address] [place], [address], [facility] 06/23/2025 14:35:25 OBGyn Episode No OBEpisode recorded.
--- OUTSIDE RECORDS SUMMARY | 2025-07-27 23:09 | XMS_ITS | Data Portability ---
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 Plan of Treatment Reminders Order Date Submit Date Provider Last Modified By Organization Details Last Modified Time Details Appointments None recorded. Lab None recorded. Referral None recorded. Procedures None recorded. Surgeries None recorded. Imaging None recorded. Medication Orders hydrocortis one 2.5 % topical cream 2024 025 [facility], [facility] [address] [facility], [place], [address], 12:11:52 Patient TargetsNo targets recorded. Patient Instructions Encounter Date Encounter Id Patient Instructions Last Modified By Organization Details Last Modified Time 01/01/2025 [id number] hemorrhoids: car e instructions jnanney Not available 01/01/2025 12:44:42 Reason [...] fic Gravi ty perfo rmed by lokesh campa try. Not Available Not Available 05/26/2025 11:45:51 [...] can [facility] . Not Available Not Available 05/26/2025 [...] Natio nal Prashant y Found ation and Amsunni gaspar Socie ty of Nephr ology recom [...] low Not Available Not Available 05/26/2025 11:45:51 05/24/20 25 05/24/2025 BMP, serum or plasm a BUN/creatini ne, ratio, serum 10 low: 7high: 23 Not Available Not Available 05/26/2025 11:45:51 05/24/20 25 05/24/2025 BMP, serum or plasm a osmolality calculated [...] . Not Available Not Available 05/26/2025 11:45:51 05/24/20 25 05/24/2025 BMP, serum or plasm a lab interpretati on Abnorm al Not Available Not Available 11:45:51 05/22/2005/22/2025 CT, abdom en + pelvi s, w/ contr ast No observ ation record ed. [facility] [address] [place], [address], 05/25/2025 09:17:52 Result Notes None recorded. Problems No Known Problems Procedures Surgical History Date Name Laterality Status Provider Name and Address Organization Details Recorded Time 12/29/19 22 colonoscopy completed Nidhi Bermeo [place] - [facility] 03/09/2022 11:27:48 08/01/20 21 Appendectomy completed Nidhi Bermeo [place] - [facility] 03/09/2022 11:27:28 tonsilectomy/jagjit noids completed Teresita Burch [place] - [facility] 06/30/2021 14:12:12 Imaging Results None recorded. Procedure [...] sex Body weight Respiratory rate Oxygen saturation Heart rate Systolic And Diastolic Provider Name and Address Organization Details Last Updated DateTime 5 157.48 cm 24.1 kg/m2 72 % 37914.4 7 g 16 /min 99 % 98 /min 104/64 mm[Hg] Susana Maria [place] - [facility] 5 11:13:59 Date Recorded Body height Body mass index (BMI) [Percentile] Per age and sex Body mass index (BMI) Body weight Oxygen saturation Heart rate Systolic And Diastolic Provider Name and Address Organization Details Last Updated DateTime 5 157.48 cm 74 % 24.5 kg/m2 65909.3 8 g 98 % 72 /min 104/64 mm[Hg] Teresita Burch MA [facility] 5 12:27:27 Date Recorded Body height Body mass index (BMI) Body mass index (BMI) [Percentile] Per age and sex Body weight Oxygen saturation Heart rate Respiratory rate Systolic And Diastolic Provider Name and Address Organization Details Last Updated DateTime 5 157.48 cm 24.3 kg/m2 73 % 00037.3 5 g 99 % 79 /min 16 /min 103/65 mm[Hg] Susana Maria MA [facility] 14:58:39 Date Recorded Body height Body mass index (BMI) Body weight Oxygen saturation Heart rate Systolic And Diastolic Provider Name and Address Organization Details Last Updated DateTime 5 157.48 cm 23.4 kg/m2 67602.8 2 g 98 % 86 /min 102/60 mm[Hg] JESUS Alfaro [facility] 12:14:48 Date Recorded Body height Body mass index (BMI) Body weight Oxygen saturation Heart rate Systolic And Diastolic Provider Name and Address Organization Details Last Updated DateTime 5 157.48 cm 23.6 kg/m2 49099.4 2 g 98 % 93 /min 110/62 mm[Hg] JESUS Alfaro [facility] 15:17:02 Date Recorded Body height Body mass index (BMI) Body weight Oxygen saturation Heart rate Systolic And Diastolic Provider Name and Address Organization Details Last Updated DateTime 5 157.48 cm 22.3 kg/m2 78886.2 7 g 98 % 94 /min 102/62 mm[Hg] JESUS Alfaro [facility] 14:08:23 Social History Question Answer Notes LastModified by Organizat ion Details LastModified Time Tobacco Smoking Status Current Every Day Smoker Vapes daily, nicottine . Connie christianson, [facility] 08/27/2024 14:57:26 Are You Blind Or Do [...] available 06/30/2021 Are You Sexually Active? Yes [id number] Information not available 12/28/2022 Do You Have [...] anxious, or unable to sleep at night)? [id number] [email or web address] Information not available 09/21/2022 Family History [...] Skin Problems N Anemia N Heart Attack (NM) N Diabetes N Anxiety Disorder N Muscle, [...] adolescent or pediatric 5 completed Not Available [facility] 08/03/2023 14:01:56 Hep B, adolescent or pediatric 5 completed Not Available [facility] 08/03/2023 14:01:56 HPV9 6 completed Not Available [facility] 06/02/2023 23:50:55 HPV9 6 completed Not Available [facility] 06/02/2023 23:50:55 HPV9 6 completed Not Available [facility] 06/02/2023 23:50:55 influenza, intradermal, quadrivalent, preservative free 0 completed Not Available [facility] 06/02/2023 23:50:55 influenza, intradermal, quadrivalent, preservative free 6 completed Not Available [facility] 08/03/2023 14:01:56 influenza, intradermal, quadrivalent, preservative free 7 completed Not Available [facility] 08/03/2023 14:01:56 influenza, intradermal, quadrivalent, preservative free 8 completed Not Available [facility] 08/03/2023 14:01:56 influenza, intradermal, quadrivalent, preservative free 9 completed Not Available [facility] 08/03/2023 14:01:56 MMR 5 completed Not Available [facility] 06/02/2023 23:50:55 MMR 9 completed Not Available [facility] 06/02/2023 23:50:55 meningococcal MCV4P 6 completed Not Available [facility] 06/02/2023 23:50:56 pneumococcal conjugate PCV 7 4 completed Not Available [facility] 06/02/2023 23:50:55 pneumococcal conjugate PCV 7 5 completed Not Available [facility] 06/02/2023 23:50:55 pneumococcal conjugate PCV 7 5 completed Not Available [facility] 06/02/2023 23:50:55 pneumococcal conjugate PCV 7 5 [...] 06/02/2023 23:50:56 varicella 9 completed Not Available [facility] 06/02/2023 23:50:56 meningococcal B, OMV 2 completed Not Available [facility] 06/02/2023 23:50:55 influenza, split (incl. purified surface antigen) 0 completed Not Available [facility] 08/03/2023 14:01:56 Influenza, split virus, quadrivalent, PF 6 completed Not Available [facility] 06/02/2023 23:50:56 DTaP 4 completed Not Available [facility] 06/02/2023 23:50:56 Hib-Hep B 5 completed Not Available [facility] 06/02/2023 23:50:55 Influenza, split virus, quadrivalent, PF 7 completed Not Available [facility] 06/02/2023 23:50:56 Hib-Hep B 5 completed Not Available [facility] 06/02/2023 23:50:55 Meningococcal MCV4O 2 completed Not Available [facility] 06/02/2023 23:50:56 meningococcal B, OMV 2 completed Not Available [facility] 06/02/2023 23:50:55 Influenza, split virus, quadrivalent, PF [...] ICD10 Code Diagnosis IMO Codes Diagnosis Note [id number] Samir [place] PA-C [facility] [address] [place] [address] 06/30/2021 13:59:05 07/01/2021 07:28:54 Well child visit 188024843 Z00.982 [id number] Samir [place] PA-C [facility] [address] [place] [address] 07/11/2021 09:58:31 07/13/2021 09:29:30 Dysuria 22491397 R30.9 [id number] Abdias Buckley MD [facility] [address] [place] [address] 09/19/2021 17:16:15 09/19/2021 18:04:11 Dysuria 88322807 R30.0 [id number] Abdias Buckley MD [facility] [address] [place] [address] 12/01/2021 16:34:04 12/01/2021 17:17:34 Active or passive immunization 099299675 Z23 Fatigue 73466421 R53.83 Generalize d anxiety disorder 59471174 F41.1 [id number] Samir Wilson PA-C [facility] [address] [place] [address] 03/09/2022 11:14:20 03/09/2022 12:02:32 Active or passive immunization 001292413 Z23 Bilateral ingrowing nail of toe of feet 4489443113 3933914 L60.0 [id number] Samir Wilson PA-C [facility] [address] [place] [address] 07/04/2022 16:03:11 07/04/2022 17:25:02 Acute upper respiratory infection 14482634 J00 [id number] Samir Wilson PA-C [facility] [address] [place] [address] 07/28/2022 10:19:02 07/28/2022 10:55:11 Fibrocystic change of left breast 5215974899 1957421 N60.12 [id number] Samir Wilson PA-C [facility] [address] [place] [address] 09/21/2022 12:11:51 09/21/2022 13:48:27 Fibrocystic changes of bilateral breasts 7813886964 8373728 N60.12 [id number] MERCEDEZ Cope 14 OB [address] [facility] [place] [address] 10/05/2022 09:12:25 10/09/2022 10:09:22 Pain of breast 55222787 N64.4 Pt plans on going to [facility] for . Pt to follow up 2 weeks after procedure to check status of breasts. Explained to patient that hormones can cause breast lumpiness and tenderness . [id number] MERCEDEZ Cope 14 OB 4 [facility] [place] [address] 10/24/2022 16:40:59 10/25/2022 09:26:09 Mastodynia of bilateral breasts 1325179849 8267392 N64.4 Pt educated on fibrocysti c breast changes and how to decrease the appearance of lumps- by limiting caffeine and nicotine. Sbe exam discussed with pt. Ultrasound order given, pt verbalized understand ing. Will follow up pending results. [id number] MERCEDEZ Cope 14 OB 4 [facility] [place] [address] 12/28/2022 12:13:53 01/01/2023 07:19:58 Contraception care management 955214817 Z30.9 1. All forms of control reviewed with patient including risks, benefits, pros and cons. 2. Patient verbalized understand ing of all forms and that abstinence is the only true form of control. 3. Condom use reviewed as well and prevention and transmissi on of STD's. 4. Pt to picker and sorter load and unload medication and call [place] office for injection appt. Smoker 76264839 F17.200 smoking cessation informatio n give. pt understand s the risk factors associated with smoking including heart disease, blood clots, stroke and increase risks for cancers. [id number] Leslie Paez [facility] 14 [address] [facility] [place] [address] 01/16/2023 16:57:21 01/23/2023 07:28:02 Surveillance of depot contraception done 5061776667 9104 Z30.42 1. All forms of control reviewed with patient including risks, benefits, pros and cons. 2. Patient verbalized understand ing of all forms and that abstinence is the only true form of control. 3. Condom use reviewed as well and prevention and transmissi on of STD's. 4. Depo injection given 5. Will return q 3 months for injections , sooner if needed. 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 [id number] TANISHA Dow [address] [place] [address] 04/17/2023 14:01:20 04/18/2023 15:23:54 Surveillance of depot contraception done 6305789229 9104 Z30.42 pt rcvd shot and return dates of Jul.02- [id number] TANISHA Dow [address] [place] [address] 05/07/2023 15:32:03 05/09/2023 15:12:18 Viral syndrome 871585916 B34.9 Acute maxi llary sinusitis 31737017 J01.01 Normal weight 32028722 Z 68.21 [id number] CHRISTIANO Cope Eddy 14 OB 4 [facility] [place] [address] 08/01/2023 14:46:38 08/02/2023 09:20:42 Contraception care management 739953605 Z30.9 1. All forms of control reviewed [...] months for injections , sooner if needed. [id number] MERCEDEZ Cope 14 OB 4 [facility] [place] [address] 08/03/2023 14:00:14 08/06/2023 08:10:44 Initiation of depot contraception done 1782396594 66637 Z30.013 Smoker 65183358 F17.200 smoking cessation informatio n give. pt understand s the risk factors associated with smoking including heart disease, blood clots, stroke and increase risks for cancers. [id number] Samir [place] PA-C [facility] [address] [place] [address] 10/23/2023 10:42:50 10/26/2023 00:32:24 Seasonal allergic rhinitis 670381049 J30.2 Exercise i nduced bronchospasm 374662926 J45.990 Body mass index 20-24 - normal 726162772 Z68.24 [id number] MERCEDEZ Cope 14 OB 4 [facility] [place] [address] 10/26/2023 09:52:21 10/29/2023 08:09:15 Surveillance of depot contraception done 9251744969 04 Z30.42 1. All forms of control reviewed with patient including risks, benefits, pros and cons. 2. Patient verbalized understand ing of all forms and that abstinence is the only true form of control. 3. Condom use reviewed as well and prevention and transmissi on of STD's. 4. Depo injection given 5. Will return q 3 months for injections , sooner if needed. [id number] Abdias Buckley MD [facility] [address] [facility] [place] [address] 01/10/2024 15:18:16 01/12/2024 09:29:31 Paronychia of finger of right hand 3922550863 5272620 L03.011 Body mass index 20-24 - normal 034547582 Z68.24 [id number] MD Eddy Hilario 14 4 [facility] [place] [address] 01/15/2024 10:02:07 01/18/2024 07:44:53 Surveillance of depot contraception done 2384984718 Z30.42 1. All forms of control reviewed with patient including risks, benefits, pros and cons. 2. Patient verbalized understand ing of all forms and that abstinence is the only true form of control. 3. Condom use reviewed as well and prevention and transmissi on of STD's. 4. Depo injection given 5. Will return q 3 months for injections , sooner if needed. [id number] MD Eddy Hilario 14 4 [facility] [place] [address] 04/09/2024 11:26:43 04/14/2024 08:43:37 Surveillance of depot contraception done 6468520003 9104 Z30.42 1. All forms of control [...] months for injections , sooner if needed. [id number] MD Eddy Hilario 14 OB 4 [facility] [address] [facility] [facility] [place] [address] 08/27/2024 14:48:59 08/28/2024 10:22:26 Contraception care management 666498080 Z30.9 1. All forms of control reviewed with patient including risks, benefits, pros and cons. 2. Patient verbalized understand ing of all forms and that abstinence is the only true form of control. 3. Condom use reviewed as well and prevention and transmissi on of STD's. 4. pt on cycle, will return within 48 hours. Smoker 40905670 F17.200 smoking cessation informatio n give. pt understand s the risk factors associated with smoking including heart disease, blood clots, stroke and increase risks for cancers. Overweight 980546972 E66 .3 [id number] MD Eddy Hilario 14 OB 4 [facility] [address] [place] [address] 09/22/2024 16:09:40 09/23/2024 12:35:58 Contraception care management 841614996 Z30.9 1. All forms of control reviewed with patient including risks, benefits, pros and cons. 2. Patient verbalized understand ing of all forms and that abstinence is the only true form of control. 3. Condom use reviewed as well and prevention and transmissi on of STD's. 4. pt on cycle, will return within 48 hours. [id number] MD Liborio Das [facility] [address] [place] [address] 12/18/2024 11:03:21 12/19/2024 08:18:25 Viral gastroenteritis caused by Otis-like agent 55058007 A08.11 [id number] resolved Body mass index 20-24 - normal 298516819 Z68.24 61434379 [id number] MD Liborio Das [facility] [address] [place] [address] 01/01/2025 12:19:30 01/02/2025 16:57:38 External hemorrhoids 48867818 K64.4 90467 [id number] [facility] [address] [place] [address] 05/27/2025 12:07:22 05/29/2025 13:40:49 Laceration of esophagus 843166026 K22.6 [id number] Normal weight 98879319 Z 68.23 8429524294 [id number] Samir [place] PA-C [facility] [address] [place] [address] 06/10/2025 15:10:48 06/12/2025 14:18:53 Mucosal tear of esophagus 312664442 K22.89 7505873727 Body mass index 20-24 - normal 842388122 Z68.23 77680866 [id number] Abdias Buckley MD [facility] [address] [place] [address] 06/23/2025 14:02:29 06/26/2025 15:53:00 Mucosal tear of esophagus 173109034 K22.89 5304600745 Normal weight 23181569 Z 68.22 [id number] Health Concerns Section Related Observation LastModified by Organization Detai ls LastModified Time None Recorded Concern Status LastModified by Organization Details LastModified Time None Recorded Advance Directives Directive None Recorded Payers Insurance Date Sequence Insurance Name Policy Number Policy Gibson Covered Member ID Gibson Member ID Guarantor Name 2025 1 [place] rOlando Haas [id number] Kaila Dequasie 06/23/2025 SLIDING FEE SCHEDULE - DISCOUNT Kaila Dequasie 06/23/2025 SLIDING FEE SCHEDULE - DISCOUNT Kaila Dequasie 06/10/2025 SLIDING FEE SCHEDULE - DISCOUNT Kaila Dequasie 2025 1 [employer] [place] - DOS ON OR AFTER 2020 (MEDICAID REPLACEMENT - HMO) Orlando Haas [id number] Kaila Dequasie 05/27/2025 SLIDING FEE SCHEDULE - DISCOUNT Kaila Dequasie 02/05/2025 SLIDING FEE SCHEDULE - DISCOUNT Kaila Dequasie 12/16/2024 1 *SELF PAY* An valeri Dequasie 01/01/2025 SLIDING FEE SCHEDULE - DISCOUNT Kaila Dequasie Notes Date Note Type Note Provider Name and Address Organization Details Recorded Time 12/18/2024 text/html ROS as noted in the HPI had diarrhea and stomach upset for 3 days..feeling better now... 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 Samir [place] PA-C Attn: Accounting,[address] [place], [place], [address] [place] [address], [facility] 05/27/2025 13:06:38 06/10/2025 text/html ROS as noted in the HPI needs more [place] paperwork..esopha geal tear.. Samir [place] PA-C Attn: Accounting,[address] [place], [place], [address] [place] [address], [facility] 06/10/2025 15:28:57 06/23/2025 text/html ROS as noted in the HPI follow up for release to return to work Samir [place] PA-C Attn: Accounting,[address] [place], [place], [address] [place] [address], [facility] 06/23/2025 14:35:25 OBGyn Episode No OBEpisode recorded.
--- NOTE | 2025-07-27 23:15 | ED_ITS ---
HPI - Abdominal Pain General Chief Complaint: Urogenital-Female Stated Complaint: abdominal pain Time Seen by Provider: 07/27/25 23:14 Source: patient Mode of arrival: ambulatory Limitations: no limitations History of Present Illness HPI narrative: 20 years old white female complaining of left lower quadrant discomfort started in the last 4 days associated with urine frequency and burning sensation. She denies any fever chills nausea vomiting, vaginal bleeding or discharge Related Data Allergies Allergy/AdvReac Type Severity Reaction Status Date / Time No Known Allergies Allergy Verified 07/27/25 23:32 Review of Systems Review of Systems: All systems reviewed & are unremarkable except as noted in HPI and below PMFSH Past Medical History Medical History Vasovagal syncope Ingrown nail of great toe of right foot GERD (gastroesophageal reflux disease) Depression Abdominal pain Surgical History Surgical History History of appendectomy Family History Family History Mother Abdominal pain Colon polyp Social History Social History Smoking status: Never smoker Alcohol intake: never Substance use type: marijuana Other substance usage details: occasional Exam Narrative: General appearance: Well-developed, well-nourished Skin: Normal color Head: Normocephalic, nontraumatic Eyes: Clear conjunctiva ENT: Oropharynx normal, ears normal, nose normal Neck: Supple, nontender Chest and respiratory: Airway patent, no respiratory distress, no accessory muscle use Heart: Regular rate/rhythm Abdomen: Soft, nontender, no organomegaly, quiet bowel sounds Vascular: Normal peripheral pulses, normal capillary refill. Musculoskeletal: Normal range of motion, nontender back Neurologic: Alert and oriented ?3, [employer] is normal as tested, no gross motor deficit Course Vital Signs Vital signs: Vital Signs Temperature 36.7 C 07/27/25 23:05 Pulse Rate 90 07/27/25 23:05 Respiratory Rate 16 07/27/25 23:05 Blood Pressure 116/75 07/27/25 23:05 Pulse Oximetry 99 07/27/25 23:05 Oxygen Delivery Room Air 07/27/25 23:05 Temperature 36.7 C 07/27/25 23:05 Pulse Rate 90 07/27/25 23:05 Respiratory Rate 16 07/27/25 23:05 Blood Pressure 116/75 07/27/25 23:05 Pulse Oximetry 99 07/27/25 23:05 Oxygen Delivery Room Air 07/27/25 23:05 [facility] Narrative Medical decision making narrative: Patient presents with lower abdominal pain and urinary symptoms Differential diagnosis include urinary tract infection, constipation, colitis Urinalysis positive for infection Discharged on Macrobid and Pyridium The pt was discharged to home.the pt,s condition upon discharge was fair,education was provided to the pt in reference to the final impression,discharge study results,treatment,prognosis and need for follow up . Differential Diagnosis Differential Diagnosis: As above Lab Data [facility] Lab Attestation statement: I personally reviewed the patient's lab results. Labs: Lab Results 07/27/25 Range/Units 23:35 Urine Color Light yellow (Yellow) Urine Appearance Clear (Clear) Urine pH 8.0 (5.0-8.0) Ur Specific [place] 1.015 (1.010-1.020) Urine Protein 2+ H (Negative) Urine Glucose (UA) Negative (Negative) Urine Ketones Negative (Negative) Ur Blood (Man) 2+ H (Negative) Urine Nitrate Positive H (Negative) Urine Bilirubin Negative (Negative) Urine Urobilinogen 0.2 (0.2-1.0) mg/dL Leukocyte Esterase Rfl 3+ H (Negative) STEPHANIA/UL Urine RBC 11-20 H (0-2) /hpf Urine WBC >75 H (0-3) /hpf Ur Squamous Epith Cells Moderate H (Few) /hpf Amorphous Sediment Moderate H (None) Urine Bacteria 4+ H (None) /hpf Urine Test Negative Critical Care Time Critical Care Time Critical Care Time: No Discharge Plan Discharge Clinical Impression: Urinary tract infection Patient Disposition: Home Condition: Stable Instructions: Antibiotic Form, Urinary Tract Infection in Women (ED) Additional Instructions: Return if symptoms are worsening , call your family physician for appointment, take Tylenol, ibuprofen as as needed for aches and pain, continue home medications. Patient Language: Fijian Prescriptions: New nitrofurantoin monohyd/m-cryst [Macrobid] 100 mg capsule 100 mg PO Q12H 5 Days Qty: 10 0RF Rx Instructions: must administer with a meal/food phenazopyridine [Pyridium] 200 mg tablet 200 mg PO TID PRN (Reason: pain) Qty: 6 0RF Follow-up/Referrals: Katie,BAO Mcclure [Primary Care Provider]
[2025-07-27 23:41] LABS: Add Urine Microscopic? YES; Appearance Urine Clear (Clear); Glucose Urine UA Negative (Negative); Leukocyte Esterase Ur 3+ LEU/UL (Negative); Nitrate Urine Positive (Negative); Specific Grav Ur 1.015 (1.010-1.020)
[2025-07-27 23:47] LABS: Pregnancy On Board Control Positive
[2025-07-28] MEDS: NITROFURANTOIN MONOHYD MACROCR 100 MG CAP PO (00:10)
--- OUTSIDE RECORDS SUMMARY | 2025-07-28 00:13 | XMS_ITS | Continuity of Care Document ---
Author Organization [facility] Address [address] [place] [address] Care Team Providers Care Practical Nurse Clinical Coordinator Name Role Phone SAMIR WILSON Primary Care Provider [phone] Assessment No assessment recorded. Plan of Treatment [...] contr ast No observ ation record ed. [facility] [address] [place], [address], 05/25/2025 09:17:52 Result Notes None recorded. Problems No Known Problems Procedures Surgical History Date Name Laterality Status Provider Name and Address Organization Details Recorded Time 12/29/19 22 colonoscopy completed Nidhi Bermeo [facility] 03/09/2022 11:27:48 02/28/20 21 Appendectomy completed Nidhi Bermeo [facility] 03/09/2022 11:27:28 tonsilectomy/jagjit noids completed Teresita Burch [facility] 06/30/2021 14:12:12 Imaging Results None recorded. [...] Organization Details Last Updated DateTime 157.48 cm 23.4 kg/m2 76408.8 2 g 98 % 86 /min 102/60 mm[Hg] JESUS Alfaro [place] [facility] 12:14:48 Social History Question Answer Notes LastModified by Organizat ion Details LastModified Time Tobacco Smoking Status Current Every Day Smoker Vapes daily, nicottine . Connie christianson, [place] [facility] 08/27/2024 14:57:26 Are You Blind Or [...] anxious, or unable to sleep at night)? [id number] [email or web address] Information not available 09/21/2022 Family History [...] Eating Disorder N Anemia N Heart Attack ([place]) N Diabetes N Anxiety Disorder N Muscle, [...] Recorded Time DTaP 5 completed Not Available [facility] 06/02/2023 23:50:56 DTaP 5 completed Not Available [facility] 06/02/2023 23:50:56 DTaP 6 completed Not Available [facility] 06/02/2023 23:50:56 Hib (PRP-OMP) 4 completed Not Available [facility] 08/03/2023 14:01:56 Hib (PRP-OMP) 5 completed Not Available [facility] 08/03/2023 14:01:56 Hib (PRP-OMP) 5 completed Not Available [facility] 08/03/2023 14:01:56 Hep B, adolescent or pediatric 4 completed Not Available [facility] 06/02/2023 23:50:56 Hep B, adolescent or pediatric 4 completed Not Available [facility] 08/03/2023 14:01:56 Hep B, adolescent or pediatric 5 completed Not Available [facility] 08/03/2023 14:01:56 Hep B, adolescent or pediatric 5 completed Not Available [facility] 08/03/2023 14:01:56 HPV9 6 completed Not Available [facility] 06/02/2023 23:50:55 HPV9 6 completed Not Available [facility] 06/02/2023 23:50:55 HPV9 6 completed Not Available [facility] 06/02/2023 23:50:55 influenza, intradermal, quadrivalent, preservative free 0 completed Not Available [facility] 06/02/2023 23:50:55 influenza, intradermal, quadrivalent, preservative free 6 completed Not Available [facility] 08/03/2023 14:01:56 influenza, intradermal, quadrivalent, preservative free 7 completed Not Available [facility] 08/03/2023 14:01:56 influenza, intradermal, quadrivalent, preservative free 8 completed Not Available [facility] 08/03/2023 14:01:56 influenza, intradermal, quadrivalent, preservative free 9 completed Not Available [facility] 08/03/2023 14:01:56 MMR 5 completed Not Available [facility] 06/02/2023 23:50:55 MMR 9 completed Not Available [facility] 06/02/2023 23:50:55 meningococcal MCV4P 6 completed Not Available [facility] 06/02/2023 23:50:56 pneumococcal conjugate PCV 7 4 completed Not Available [facility] 06/02/2023 23:50:55 pneumococcal conjugate PCV 7 5 completed Not Available [facility] 06/02/2023 23:50:55 pneumococcal conjugate PCV 7 5 completed Not Available [facility] 06/02/2023 23:50:55 pneumococcal conjugate PCV 7 5 completed Not Available [facility] 06/02/2023 23:50:55 IPV 4 completed Not Available [facility] 06/02/2023 23:50:55 IPV 5 completed Not Available [facility] 06/02/2023 23:50:55 IPV 5 completed Not Available [facility] 06/02/2023 23:50:55 IPV 9 completed Not Available [facility] 06/02/2023 23:50:55 Tdap 6 completed Not Available [facility] 06/02/2023 23:50:56 varicella 6 completed Not Available [facility] 06/02/2023 23:50:56 varicella 9 completed Not Available [facility] 06/02/2023 23:50:56 meningococcal B, OMV 2 completed Not Available [facility] 06/02/2023 23:50:55 influenza, split (incl. purified surface antigen) 0 completed Not Available [facility] 08/03/2023 14:01:56 Influenza, split virus, quadrivalent, PF 6 completed Not Available [facility] 06/02/2023 23:50:56 DTaP 4 completed Not Available [facility] 06/02/2023 23:50:56 Hib-Hep B 5 completed Not Available [facility] 06/02/2023 23:50:55 Influenza, split virus, quadrivalent, PF 7 completed Not Available [facility] 06/02/2023 23:50:56 Hib-Hep B 5 completed Not Available [facility] 06/02/2023 23:50:55 Meningococcal MCV4O 2 completed Not Available [facility] 06/02/2023 23:50:56 meningococcal B, OMV 2 completed Not Available [facility] 06/02/2023 23:50:55 Influenza, split virus, quadrivalent, PF 8 completed Not Available [facility] 06/02/2023 23:50:56 Influenza, split virus, quadrivalent, PF 9 completed Not Available [facility] 06/02/2023 23:50:56 Hib-Hep B 4 completed Not Available [facility] 06/02/2023 23:50:55 Past Encounters Encounter ID Performer Location Encounter Start Date Encounter Closed Date Diagnosis/Indication Diagnosis SNOMED-CT Code Diagnosis ICD10 Code Diagnosis IMO Codes Diagnosis Note [id number] TANISHA Dow [address] [place] [address] 05/27/2025 12:07:22 05/29/2025 13:40:49 Laceration of esophagus 369124228 K22.6 [id number] Normal weight 71890786 Z 68.23 [id number] Health Concerns Section Related Observation LastModified by Organization Detai ls LastModified Time None Recorded Concern Status LastModified by Organization Details LastModified Time None Recorded Payers None recorded. 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 Samir Wilson PA-C Attn: [address] [place], [address], [facility] 05/27/2025 13:06:38 OBGyn Episode No OBEpisode recorded.
--- OUTSIDE RECORDS SUMMARY | 2025-07-28 00:13 | XMS_ITS | Clinical Summary ---
Author Organization [facility] Address [facility] [place] [address] Care Team Providers Care Information Technology Intern Name Role Phone Pippa Cheek MD Primary Care Provider [phone] Allergies No known active allergies Medications HYDROcodone-acet aminophen (NORCO) 5-325 MG tablet Take 1 tablet by mouth every 6 (six) hours as needed for Pain. 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
--- OUTSIDE RECORDS SUMMARY | 2025-07-28 00:13 | XMS_ITS | Clinical Summary ---
Author Organization [facility] [employer] Address [address] [place] [address] Care Team Providers Care Thermodynamics Professor Name Role Phone Gregorio Wilson Primary Care Provider [phone] Source Comments [facility] [employer],non-owned Affiliates and Associated Physician Practices is amultiple site organization consisting of ambulatory clinics and hospital sitesin [place], [place], [place] and [place]. This disclosure is being madepursuant to the Care Everywhere program and may not contain all information available regarding this patient. Last updated 18.[employer] [facility] [employer] Allergies No known active allergies Medications * [...] - 05/24/2025 6:22 PM CDT Hospital Encounter [facility] 6S ACUTE [address] [place] [address] Willam Gimlore MD Cardiothoracic Surgery Discharge Disposition: Home or [...] and heating? Not hard at all 05/23/2025 [facility] Clive of Occupat ional Health - Occupational Stress [...] any time in the past 12 m [facility], were you homeless or living in a senior care (including now)? 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7 - 36.3 g/dL 05/24/2025 8:21 AM [facility] RDW-CV 13.7 11.3 - 14.8 % 05/24/2025 8:21 AM [facility] Platelet Count 189 150 - 420 x10E9/L 05/24/2025 8:21 AM [facility] MPV 10.9 7.8 - 11.4 fL 05/24/2025 8:21 AM [facility] Neutrophil % 48.0 41.0 - 74.0 % 05/24/2025 8:21 AM [facility] Lymphocyte % 43.0 17.0 - 47.0 % 05/24/2025 8:21 AM [facility] Monocyte % 7.7 3.0 - 11.0 % 05/24/2025 8:21 AM [facility] Eosinophil % 0.8 0.0 - 7.0 % 05/24/2025 8:21 AM [facility] Basophil % 0.3 0.0 - 1.6 % 05/24/2025 8:21 AM [facility] Immature Granulocytes % 0.2 0.0 - 1.0 % 05/24/2025 8:21 AM [facility] Neutrophil Absolute 3.01 1.60 - 7.50 x10E9/L 05/24/2025 8:21 AM [facility] Lymphocyte Absolute 2.69 1.00 - 4.40 x10E9/L 05/24/2025 8:21 AM [facility] Monocyte Absolute 0.48 0.15 - 1.00 x10E9/L 05/24/2025 8:21 AM [facility] Eosinophil Absolute 0.05 0.00 - 0.60 x10E9/L 05/24/2025 8:21 AM [facility] Basophil Absolute 0.02 0.00 - 0.13 x10E9/L 05/24/2025 8:21 AM [facility] Blood BLOOD SPECIMEN / Unknown Lab Venipuncture / Unknown 05/24/2025 6:23 AM CDT 05/24/2025 7:53 AM CDT us Willam Gilmore MD LAB - HEMATOLOGY ORDERABLES Fi nal Result [address] [address], [facility] [phone] * (ABNORMAL) BASIC METABOLIC PANEL (CALCIUM TOTAL) (05/24/2025 6:23 AM T) Only the most recent of2 resultswithin the time period is included. BUN 6(L) 7 - 26 mg/dL 05/24/2025 8:25 AM [facility] Creatinine 0.58 0.56 - 0.96 mg/dL 05/24/2025 8:25 AM [facility] Sodium 138 136 - 145 mmol/L 05/24/2025 8:25 AM [facility] Potassium 3.3(L) 3.5 - 4.5 mmol/L 05/24/2025 8:25 AM [facility] Chloride 114(H) 98 - 107 mmol/L 05/24/2025 8:25 AM [facility] CO2 22 22 - 29 mmol/L 05/24/2025 8:25 AM [facility] Glucose 75 70 - 99 mg/dL 05/24/2025 8:25 AM [facility] Calcium 8.2(L) 8.4 - 10.2 mg/dL 05/24/2025 8:25 AM [facility] Anion Gap 2(L) 6 - 16 05/24/2025 8:25 AM [facility] BUN/Creatinine Ratio 10 7 - 23 05/24/2025 8:25 AM CDT [facility] Osmolality Calculated 282 275 - 295 mOsm/kg 05/24/2025 8:25 AM CDT [facility] eGFR by CKD-EPI >90 >=90 mL/min/1.7 3 m2 05/24/2025 8:25 AM CDT [facility] Comment:Estimated Glomerular Filtration Rate (eGFR) calculated using the CKD-EPI Creatinine Equation (2020), per the National Kidney Foundation and [place] [employer] of Nephrology recommendations. Blood BLOOD SPECIMEN / Unknown Lab Venipuncture / Unknown 05/24/2025 6:23 AM CDT 05/24/2025 7:53 AM CDT Willam Gilmore MD LAB - CHEMISTRY ORDERABLES Fin al Result [address] [address], [place] [phone] * (ABNORMAL) PHOSPHORUS BLOOD (05/24/2025 6:23 AM CDT) Only the most recent of2 resultswithin the time period is included. Phosphorus 2.2(L) 2.9 - 5.1 mg/dL 05/24/2025 8:25 AM CDT [facility] Blood BLOOD SPECIMEN / Unknown Lab Venipuncture / Unknown 05/24/2025 6:23 AM CDT 05/24/2025 7:53 AM CDT Willam Gilmore MD LAB - CHEMISTRY ORDERABLES Fin al Result [address] [address], [place] [phone] * MAGNESIUM BLOOD (05/24/2025 6:23 AM CDT) Only the most recent of2 resultswithin the time period is included. Magnesium 1.9 1.6 - 2.6 mg/dL 05/24/2025 8:25 AM CDT [facility] Blood BLOOD SPECIMEN / Unknown Lab Venipuncture / Unknown 05/24/2025 6:23 AM CDT 05/24/2025 7:53 AM CDT us Willam Gilmore MD LAB - CHEMISTRY ORDERABLES Fin al Result [facility] [address] [place] [address], [facility] [phone] * FL Esophagram (05/23/2025 10:07 AM CDT) Anatomical Region Laterality Modality Chest Digital Radiogra phy 05/23/2025 10:2 5 AM CDT Impressions 05/25/2025 10:34 AM CDT IMPRESSION: No evidence of contrast leak to suggest perforation. Report dictated by Rancho Morin MD, MD (resident care manager). > Dictated by Rancho Morin MD 05/23/2025 10:25 AM > Dictated by Family Dentist I, Tracie Frazier MD have personally reviewed and interpreted this examination/study. > Interpreting Provider: Tracie Frazier MD on 05/25/2025 10:34 AM Narrative 05/25/2025 10:34 AM CDT PROCEDURE: FL ESOPHAGRAM, DATE/TIME OF EXAM: 05/23/2025 10:09 AM, LOCATION [facility] INDICATION: K22.3: Esophageal perforation ADDITIONAL CLINICAL [...] DATE/TIME OF EXAM: 05/23/2025 10:09 AM, LOCATION [facility] INDICATION: K22.3: Esophageal perforation ADDITIONAL CLINICAL [...] Report dictated by Rancho Morin MD, MD (resident care manager). > Dictated by Rancho Morin MD 05/23/2025 10:25 AM > Dictated by Family Dentist I, Tracie Frazier MD have personally reviewed and interpreted this examination/study. > Interpreting Provider: Tracie Frazier MD on 05/25/2025 10:34 AM us Willam Gilmore MD FLUOROSCOPY ORDERABLES Final R esult * (ABNORMAL) URINALYSIS REFLEX TO MICROSCOPIC NO CULTURE (05/23/2025 4:45 AM CDT) Color UA Colorless(A) Yellow, Straw 05/23/2025 5:49 AM [facility] Clarity UA Clear Clear 05/23/2025 5:49 AM [facility] Glucose UA Normal Normal 05/23/2025 5:49 AM [facility] Bilirubin UA Negative Negative 05/23/2025 5:49 AM [facility] Ketone UA 1+(A) Negative 05/23/2025 5:49 AM [facility] Specific [place] UA >1.050(H) 1.005 - 1.030 05/23/2025 5:49 AM [facility] Comment:Specific [place] per formed by manual refractometry. Blood UA Negative Negative 05/23/2025 5:49 AM [facility] pH UA 6.5 5.0 - 8.0 05/23/2025 5:49 AM [facility] Protein UA Negative Negative 05/23/2025 5:49 AM [facility] Urobilinogen UA Normal Normal mg/dL 05/23/2025 5:49 AM [facility] Nitrite UA Negative Negative 05/23/2025 5:49 AM [facility] Leukocyte Esterase UA Negative Negative 05/23/2025 5:49 AM CDT [facility] Urine Microscopy Urine microscopy not indicated 05/23/2025 5:49 AM CDT [facility] Urine URINE SPECIMEN OBTAINED BY CLEAN CATCH PROCEDURE / Unknown Collection / Unknown 05/23/2025 4:45 AM CDT 05/23/2025 5:31 AM CDT Leander Mehta MD LAB - URINALYSIS ORDERABLES Dulce l Result [facility] [address] [place] [address], [facility] [phone] * CT Chest W Contrast (05/23/2025 3:32 AM CDT) Anatomical Region Laterality Modality Chest Computed Tomogra phy 05/23/2025 4:06 AM CDT Impressions 05/23/2025 10:59 AM CDT Impression: 1.Pneumomediastinum with extension to the bilateral lower neck likely spontaneous. 2.No evidence of enteric contrast extravasation in the mediastinum. > Dictated by Lucy Campbell MD (resident care manager). > Dictated by Lucy Campbell 05/23/2025 4:06 AM > Dictated by Family Dentist I, Jose E Harrell MD have personally reviewed and interpreted this examination/study. > Interpreting Provider: Jose E Harrell MD on 05/23/2025 10:59 AM Narrative 05/23/2025 10:59 AM CDT PROCEDURE: CT CHEST W CONTRAST, DATE/TIME OF EXAM: 05/23/2025 3:32 AM, LOCATION [facility] INDICATION: K22.3: Esophageal perforation ADDITIONAL CLINICAL [...] DATE/TIME OF EXAM: 05/23/2025 3:32 AM, LOCATION [facility] INDICATION: K22.3: Esophageal perforation ADDITIONAL CLINICAL [...] mediastinum. > Dictated by Lucy Campbell MD (resident care manager). > Dictated by Lucy Campbell 05/23/2025 4:06 AM > Dictated by Family Dentist I, Jose E Harrell MD have personally [...] DATE/TIME OF EXAM: 05/23/2025 2:14 AM, LOCATION [facility] INDICATION: K22.3: Esophageal perforation ADDITIONAL CLINICAL INFORMATION: Ordering Provider Reason For Exam: Pneumomediastinum Technologist Note: Additional: COMPARISON: None. FINDINGS/IMPRESSION: There is moderate volume pneumomediastinum extending into the bilateral neck soft tissues. There is no focal consolidation, pleural effusion, or pneumothorax.Normal pulmonary vasculature.The cardiomediastinal silhouette is normal. The visible bony thorax is intact. > Dictated by Ruddy Busby MD, (resident care manager). > Dictated by Ruddy Busby MD 05/23/2025 2:33 AM > Dictated by Family Dentist I, Kendra Caro MD have personally reviewed and interpreted this examination/study. > Interpreting Provider: Kendra Caro MD on 05/23/2025 7:36 AM Procedure Note Kendra Caro MD - 05/23/2025 PROCEDURE: XR CHEST 1VW PORTABLE, DATE/TIME OF EXAM: 05/23/2025 2:14AM, LOCATION [facility] INDICATION: K22.3: Esophageal perforation ADDITIONAL CLINICAL INFORMATION: Ordering Provider Reason For Exam: Pneumomediastinum Technologist Note: Additional: COMPARISON: None. FINDINGS/IMPRESSION: There is moderate volume pneumomediastinum extending into the bilateral neck soft tissues. There is no focal consolidation, pleural effusion, or pneumothorax.Normal pulmonary vasculature.The cardiomediastinalsilhouette is normal. The visible bony thorax is intact. > Dictated by Ruddy Busby MD, (resident care manager). > Dictated by Ruddy Busby MD 05/23/2025 2:33 AM > Dictated by Family Dentist I, Kendra Caro MD have personally reviewed and interpreted this examination/study. > Interpreting Provider: Kendra Caro MD on 57:36 AM us Willam Gilmore MD DIAGNOSTIC IMAGING ORDERABLES Final Result * TROPONIN-I HIGH SENSITIVE REFLEX 1HOUR (05/23/2025 1:30 AM CDT) Troponin I High Sensitive <3 <=14 ng/L 05/23/2025 3:11 AM CDT [facility] Delta Troponin I HS 05/23/2025 3:11 AM CDT [facility] Comment:Delta value intentio lennox not calculated. Baseline to 1 hour specimen collection interval exceeded. Blood BLOOD SPECIMEN / Unknown Venipuncture / Unknown 05/23/2025 1:30 AM CDT 05/23/2025 1:46 AM CDT Leander Mehta MD LAB - CHEMISTRY ORDERABLES Final Result [facility] [address] [place] [address], [facility] [phone] * BLOOD TYPE VERIFICATION (05/23/2025 1:30 AM CDT) ABO Rh A POS 05/23/2025 2:3 6 AM CDT [facility] BLOOD BANK LAB Blood Bank BLOOD SPECIMEN / Unknown Venipuncture / Unknown 05/23/2025 1:30 AM CDT 05/23/2025 1:37 AM CDT Leander Mehta MD LAB - BLOOD BANK ORDERABLES Dulce l Result [facility] BLOOD [facility]ANK LAB [address] [place] [address], [place] [phone] * CULTURE BLOOD (05/22/2025 11:53 PM CDT) Only the most recent of2 resultswithin the time period is included. Pathologist [facility] Culture No growth day 5 YOVANI 05/28/2025 1:30 AM CDT [facility] Blood PERIPHERAL BLOOD / Unknown Venipuncture / Unknown 05/22/2025 11:53 PM CDT 05/22/2025 11:56 PM CDT us Leander Mehta MD LAB - MICROBIOLOGY ORDERABLES Fi nal Result [facility] [address] [place] [address], [place] [phone] * LACTIC ACID BLOOD REFLEX TO REPEAT (05/22/2025 11:34 PM CDT) Pathologist [facility] Lactic Acid-Stat 1.6 <=2.0 mmol/L 05/23/2025 12:10 AM CDT [facility] Blood BLOOD SPECIMEN / Unknown Venipuncture / Unknown 05/22/2025 11:34 PM CDT 05/22/2025 11:39 PM CDT us Leander Mehta MD LAB - CHEMISTRY ORDERABLES Final Result Performing Organization Address [facility]/ZIP Co de Phone Number [address] [address], [place] [phone] * TROPONIN-I HIGH SENSITIVE BASELINE + 1HR (05/22/2025 11:34 PM CDT) Pathologist [facility] Troponin I High Sensitive <3 <=14 ng/L 05/23/2025 12:26 AM CDT [facility] Blood BLOOD SPECIMEN / Unknown Venipuncture / Unknown 05/22/2025 11:34 PM CDT 05/22/2025 11:39 PM CDT us Leander Mehta MD LAB - CHEMISTRY ORDERABLES Final Result Performing Organization Address City/[facility]/ZIP Co de Phone Number [address] [address], [place] [phone] * TYPE + SCREEN PANEL (05/22/2025 11:34 PM CDT) Pathologist [facility] Antibody Screen NEG 12:27 AM CDT [facility] BLOOD [facility]ANK LAB ABO Rh A POS 05/23/2025 12:27 AM CDT [facility] B[facility]OD [facility] LAB Blood Bank BLOOD SPECIMEN / Unknown Venipuncture / Unknown 05/22/2025 11:34 PM CDT 05/22/2025 11:39 PM CDT Leander Mehta MD LAB - BLOOD BANK ORDERABLES Dulce l Result [facility] BLOOD BANK LAB [address] [place] [address], [facility] [phone] * PT-INR (05/22/2025 11:34 PM CDT) Pathologist [facility] PT 14.3 12.1 - 14.8 Seconds 05/23/2025 12:16 AM CDT [facility] INR 1.1 See Comment 05/23/2025 12:16 AM CDT [facility] Comment:The suggested therap eutic range for standard coumadin (warfarin) therapy is an INR of 2.0-3.0. For high-risk patients (Mechanical Mitral Valve Prosthesis, etc.), the suggested prophylactic therapeutic range is an INR of 2.5-3.5. Blood BLOOD SPECIMEN / Unknown Venipuncture / Unknown 05/22/2025 11:34 PM CDT 05/22/2025 11:39 PM CDT Leander Mehta MD LAB - COAGULATION ORDERABLES Fin al Result [facility] [address] [place] [address], [place] [phone] * (ABNORMAL) COMPREHENSIVE METABOLIC PANEL (05/22/2025 11:34 PM CDT) Pathologist [facility] BUN 12 7 - 26 mg/dL 05/23/2025 12:22 AM CDT [facility] Creatinine 0.56 0.56 - 0.96 mg/dL 05/23/2025 12:22 AM [facility] Sodium 137 136 - 145 mmol/L 05/23/2025 12:22 AM [facility] Potassium 3.7 3.5 - 4.5 mmol/L 05/23/2025 12:22 AM [facility] Chloride 108(H) 98 - 107 mmol/L 05/23/2025 12:22 AM [facility] CO2 22 22 - 29 mmol/L 05/23/2025 12:22 AM [facility] Glucose 95 70 - 99 mg/dL 05/23/2025 12:22 AM [facility] Calcium 8.9 8.4 - 10.2 mg/dL 05/23/2025 12:22 AM [facility] Protein Total 6.3 6.0 - 8.3 g/dL 05/23/2025 12:22 AM [facility] Albumin 4.6 3.4 - 5.0 g/dL 05/23/2025 12:22 AM [facility] Bilirubin Total 0.6 0.2 - 1.2 mg/dL 05/23/2025 12:22 AM [facility] Alkaline Phosphatase 54 40 - 150 U/L 05/23/2025 12:22 AM [facility] ALT 20 5 - 55 U/L 05/23/2025 12:22 AM [facility] AST 24 5 - 34 U/L 05/23/2025 12:22 AM [facility] Anion Gap 7 6 - 16 05/23/2025 12:22 AM [facility] BUN/Creatinine Ratio 21 7 - 23 05/23/2025 12:22 AM [facility] Osmolality Calculated 284 275 - 295 mOsm/kg 05/23/2025 12:22 AM [facility] Albumin/Globulin Ratio 2.7(H) 1.1 - 2.3 05/23/2025 12:22 AM [facility] eGFR by CKD-EPI >90 >=90 mL/min/1.7 3 m2 05/23/2025 12:22 AM [facility] Comment:Estimated Glomerular Filtration Rate (eGFR) calculated using the CKD-EPI Creatinine Equation (2020), per the National Kidney Foundation and [place] [employer] Society of Nephrology recommendations. Blood BLOOD SPECIMEN / Unknown Venipuncture / Unknown 05/22/2025 11:34 PM CDT 05/22/2025 11:39 PM CDT Leander Mehta MD LAB - CHEMISTRY ORDERABLES Final Result Performing Organization Address [facility] Co de Phone Number [address] [address], [place] [phone] * HCG BETA BLOOD QUANTITATIVE (05/22/2025 11:34 PM CDT) Beta-hCG Total Quantitative <3 mIU/mL 05/23/2025 12:26 AM CDT [facility] Comment: HCG Numeric Result Interpretation: Non- [...] CHEMISTRY ORDERABLES Final Result Performing Organization Address [facility] de Phone Number [address] [address], [place] [phone] from Last 3 Months Insurance MEDICAID - [place] Advance Directives * Full Code (Latest Code Status on File) Date Activated Date Inactivated Comments 05/23/2025 3:56 AM 05/24/2025 7:27 PM Care Teams Thermodynamics Professor Relationship Specialty Start Date End Date Gregorio Wilson PA [address] [place] [address] PCP - General Physician Video News Editor 05/23/25
--- OUTSIDE RECORDS SUMMARY | 2025-07-28 00:13 | XMS_ITS | Clinical Summary ---
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
--- OUTSIDE RECORDS SUMMARY | 2025-07-28 00:14 | XMS_ITS | Clinical Summary ---
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] to complete this topic Insurance MEDICAID [facility] [facility] MEDICAID [employer] Care Teams Theatrical Rigger Relationship Specialty Start Date End Date Gregorio Wilson PAC [address] [place] [address] PCP - General Physician Online Content Developer 10/05/21 Robbie Mandel MD [address] [address] Consulting Physician Colon and Rectal Surgery 10/05/21
[2025-07-28 00:15] VITALS: BP 118/76; PULSE 72; RESP 18; TEMP 36.6; O2SAT 99
== END 2025-07-28 00:17 | disposition home or self-care (01) ==
LOC: CHSED 07-28 00:11
PROVIDERS: Emergency Provider Emergency Medicine; PCP Physician Assistant
DX: N39.0 Urinary tract infection, site not specified (principal)
CPT/HCPCS: 81001; 81025; 99283; A9270